=== PATIENT | female | born 1955 | race Caucasian/White ===

== ENCOUNTER → 2016-12-14 | Outpatient (CLI) | payer MEDICARE, BC ==
[~2016-12-14] MED LIST: /ACETCOD3T PO; /PREG100CA PO; ALDA50TA2; ALPR2TAB3 PO; AMITIZA; ASPI325T OR; CILOSTAZOL; COLA50CA3 PO; ECOT325T5; FLEXERIL; FLUR30CA OR; FOLI1TAB OR; GLUC500T; GLUC850T OR; HYDR25TA8; HYDR25TA8 OR; MAGN400C2 PO; MELOPOW; METF1000 PO; METF500T4; OMEP20TA7 OR; OXYB5TAB5 OR; PRIL20CA; PROP20TA2; PROP20TA2 OR; PROV90AE; SENO8.6T5; SIMV40TA2; SIMV40TA2 OR; SLEEP AID OTC; SPIR50TA2 OR; STOOL SOFTNER; TESS100C OR; TOPI25TA2; TRAM50TA2; TRAM50TA2 OR; TRAZ50TA; TRAZ50TA OR; TRAZ50TA2 PO; XANA0.25 OR; cilostazol PO; dexilant OR
--- NOTE | 2016-12-14 23:35 | ECWPNPC ---
PATIENT NAME: AMI FERNANDEZ : 1955 GENDER: FEMALE VISIT DATE: 12/14/2016 DISCHARGE DATE: 12/14/16 1450 VISIT LOCKED DATE TIME: PHYSICIAN: ROXANNE TREADWELL RESOURCE: ROXANNE TREADWELL REASON FOR APPOINTMENT 1. LEFT ARM/NECK HISTORY OF PRESENT ILLNESS HISTORY OF PRESENT ILLNESS: HERE FOR F/U OF PERSISTENT LEFT ARM PAIN.HAS DCS IN PLACE WHICH PATIENT STATES IS NOT WORKING.STOPPED WORKING TWO WEEKS AGO .DENIES ANY INJURY.THIS WAS PLACED IN 2006.RATINR PAIN VAS 9/10.CURRENTLY USING TRAMADOL 50MG 2TAB 3X DAY AND GABAPENTIN 300MG BID.FINDS MEDICINE SOMEWHAT EFFECTIVE AT REDUCING PAIN AND KEEPING HER COMFORTABLE.STATES SHE HAS SEEN ISAAK FROM [employer] AND NEEDS TO HAVE XRAYS TO CHECK LEADS.HAS HAD A SIGNIFICANT INCREASE IN PAIN SINCE SHE IS UNABLE TO USE DCS. PAIN THE PATIENT DESCRIBES THE PAIN... THE PATIENT DESCRIBES THE PAIN... FALL RISK SCREENING: SCREENING :NO FALLS IN THE PAST YEAR CURRENT MEDICATIONS TAKING FLURAZEPAM HCL 30 MG CAPSULE 1 CAPSULE AT BEDTIME ORALLY ONCE A DAY TAKING HYDROXYZINE HCL 25 MG TABLET 2 TABS ORALLY AT BEDTIME TAKING OMEPRAZOLE 20MG 40 MG TABLET 1 TAB(S) ORAL DAILY TAKING METFORMIN HCL 1000 MG TABLET 2 TAB(S) ORALLY TWICE A DAY TAKING OXYBUTYNIN CHLORIDE 5 MG TABLET 1 TAB(S) ORALLY DAILY TAKING PROPRANOLOL HCL 10 MG TABLET 2 ORALLY TWICE A DAY TAKING SIMVASTATIN 40 40MG TABLET 1 TAB(S) ORAL DAILY TAKING SPIRONOLACTONE 25 MG TABLET 1 TABLET ORALLY ONCE A DAY TAKING TRAZODONE 50 50MG TABLET 1 TAB(S) ORAL DAILY TAKING DOC-Q-LACE 100 MG CAPSULE 6 CAPSULE NEEDED ORALLY ONCE A DAY TAKING MAGNESIUM 400 CAPSULE 1 ORALLY ONCE A DAY TAKING TRADJENTA 5 MG TABLET 1 TABLET ORALLY ONCE A DAY TAKING ASPIRIN ADULT LOW DOSE 81 MG TABLET DELAYED RELEASE 1 TABLET ORALLY ONCE A DAY TAKING GABAPENTIN 300 MG CAPSULE 1 CAPSULE ORALLY BID TAKING TRAMADOL HCL 50 MG TABLET 2 ORALLY Q8H PRN MDD6 3MOS SUPPLY CAT D CHRONIC PAIN TAKING MULTIVITAMIN ADULT - TABLET 1 TAB ORALLY DAILY TAKING IRON 1 TAB ORAL DAILY NOT-TAKING TESSALON PERLES 300 MG CAPSULE 1 CAPSULE ORALLY NEEDED NOT-TAKING FOLIC ACID XTRA 1 TABLET 1 TAB(S) ORALLY DAILY NOT-TAKING FOLIC ACID 1 MG TABLET 1 TABLET ORALLY ONCE A DAY NOT-TAKING TRAMADOL HCL 50 MG TABLET 2 ORALLY EVERY 68HRS PRN MDD6 NOT-TAKING TRAMADOL HCL 50 MG TABLETS 2 TABLET ORALLY 2TAB Q8H PRN MDD 6 NOT-TAKING DEXILANT 60 MG CAPSULE DELAYED RELEASE 1 CAPSULE ORALLY ONCE A DAY NOT-TAKING AMITIZA 24 MCG CAPSULE 1 CAPSULE WITH FOOD ORALLY THREE TIMES A DAY NOT-TAKING ALPRAZOLAM 0.25 MG TABLET 1 TABLET ORALLY BID PRN NOT-TAKING CILOSTAZOL 60 TABLET 1 TAB(S) ORALLY DAILY MEDICATION LIST REVIEWED AND RECONCILED WITH THE PATIENT PAST MEDICAL HISTORY CUTANEOUS MYCOSIS FUNGOIDES HISTORY OF H PYROI FOLLOWING IN [place] 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 NEW PATIENT PAIN DIARY TODAY'S VISITNOTES FROM 0-10, WHAT LEVEL IS YOUR PAIN TODAY?0 PAIN CLINIC PFS, CLERGY, PUBLIC HEALTH REFERRALS PFS REFERRAL NEEDED?NO CLERGY REFERRAL NEEDED?NO PUBLIC HEALTH REFERRAL NEEDED?NO WAS THE PROVIDER NOTIFIED OF ANY PERTINENT INFO?NO PFS REFERRAL NEEDED?NO CLERGY REFERRAL NEEDED?NO PUBLIC HEALTH REFERRAL NEEDED?NO WAS THE PROVIDER NOTIFIED OF ANY PERTINENT INFO?NO REVIEW OF SYSTEMS CONSTITUTIONAL: ANY CHANGE IN YOUR MEDICAL CONDITION? NO . CHILLS NO . FEVER NO . INFECTION: DO YOU HAVE NEW INFECTIONS? NO . DO YOU HAVE HISTORY OF MRSA? NO . MUSCULOSKELETAL: ANY NEW PATTERNS OF PAIN OR NUMBNESS? NO . GASTROENTEROLOGY: ANY NEW CHANGE IN BOWEL CONTROL? NO . GENITOURINARY: ANY NEW CHANGE IN BLADDER CONTROL? NO . IS THERE A CHANCE YOU COULD BE ? NO . HEMATOLOGY/LYMPH: DO YOU TAKE ANY BLOOD THINNERS? (FOR EXAMPLE- COUMADIN, PLAVIX, AGGRENOX, PLATEL, PRADAXA, OR XARELTO) NO . WHEN WAS YOUR LAST DOSE? DATE: TIME: . NEUROLOGY: HAVE YOU FALLEN IN THE PAST 6 MONTHS? YES . ANY NEW EXTREMITY NUMBNESS OR WEAKNESS? NO . CARDIOLOGY: DO YOU HAVE A PACEMAKER OR DEFIBRILLATOR? NO . RESPIRATORY: HAVE YOU BEEN SICK IN THE PAST WEEK? NO . FEVER NO . FLU LIKE SYMPTOMS? NO . COUGH NO . INTEGUMENTARY: DO YOU HAVE ANY RASHES OR OPEN SORES? NO . ALLERGIC/IMMUNO: ARE YOU ALLERGIC TO SHELLFISH OR IV DYE? NO . ANY NEW ALLERGIES? NO . PSYCHIATRIC: DO YOU HAVE THOUGHTS OF HURTING YOURSELF OR SOMEONE ELSE? NO . ARE YOU ABUSED, NEGLECTED, OR IN AN UNSAFE ENVIRONMENT? NO . ENDOCRINOLOGY: ARE YOU DIABETIC? YES . OTHER: DO YOU NEED ANY PRESCRIPTIONS? NO . IF YES, PLEASE LIST: ____ . ANY NEW PROBLEMS WITH YOUR MEDICATIONS? NO . WHEN DID YOU LAST EAT? ____ . WHEN DID YOU LAST DRINK? ____ . WHAT DID YOU LAST DRINK? ____ . NAME OF PERSON DRIVING YOU HOME? ____ . DO YOU HAVE ANY OTHER QUESTIONS OR CONCERNS NO . REVIEWED BY: PROVIDER: ROXANNE QUINTERO . VITAL SIGNS WT 109.4 LBS, HT 63 IN, BMI 19.38 INDEX, BP 115/67 MM HG, HR 91 /MIN, RR 16 /MIN, TEMP 97.1 F, OXYGEN SAT % 95, NA INITIALS TL 1358, REVIEWED BY: CS. EXAMINATION GENERAL EXAMINATION: LUNGS:LUNG SOUNDS ARE CLEAR. HEART:HEART RATE REGULAR. MUSCULOSKELETAL:*. DIAGNOSTIC: . : LOCATION OF PAINTENDER W LIGHT PALPATION LEFT HAND. 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 - G90.512 (PRIMARY) TREATMENT COMPLEX REGIONAL PAIN SYNDROME TYPE 1 OF LEFT UPPER EXTREMITY CONTINUE TRAMADOL HCL TABLET, 50 MG, 2, ORALLY, EVERY 68HRS PRN MDD6, 30 DAY(S), 180, REFILLS 2 CONTINUE GABAPENTIN CAPSULE, 300 MG, 1 CAPSULE, ORALLY, BID, 30 DAY(S), 60 CAPSULE, REFILLS 2 PROCEDURE CODES FA211 ESTABILISHED PATIENT [facility] FACILITY CHARGE G9630 PAIN ASSESS POS TOOL F/U PLAN DOC G8427 DOC MEDS VERIFIED W/PT OR RE DISPOSITION & COMMUNICATION FOLLOW UP 2 MONTHS (REASON: HAVE [facility] CALL PATIENT PLEASE) ELECTRONICALLY SIGNED BY LEON BERNARDO ON 12/14/2016 AT 02:51 PM EST DISCLAIMER : THIS IS A VISIT SUMMARY EXTRACTED FROM THE [employer] CHART. IT IS NOT A COPY OF THE [employer] PROGRESS NOTE. MTDD
== END ==
LOC: M PAIN 14:00
PROVIDERS: ATTEND Nurse Practitioner Family
DX: Z09 Encounter for follow-up examination after completed treatment for conditions other than malignant neoplasm (principal); G89.29 Other chronic pain; G90.512 Complex regional pain syndrome I of left upper limb; C84.00 Mycosis fungoides, unspecified site; E11.9 Type 2 diabetes mellitus without complications; K86.89 Other specified diseases of pancreas; E78.5 Hyperlipidemia, unspecified; I10 Essential (primary) hypertension; F17.200 Nicotine dependence, unspecified, uncomplicated; Z88.5 Allergy status to narcotic agent; Z88.8 Allergy status to other drugs, medicaments and biological substances; Z79.84 Long term (current) use of oral hypoglycemic drugs; Z79.82 Long term (current) use of aspirin; Z79.891 Long term (current) use of opiate analgesic; Z79.899 Other long term (current) drug therapy; Z96.9 Presence of functional implant, unspecified

== ENCOUNTER → 2017-02-13 | Outpatient (CLI) | payer MEDICARE, BC ==
--- NOTE | 2017-02-25 00:58 | ECWPNPC ---
PATIENT NAME: AMI FERNANDEZ : 1955 GENDER: FEMALE VISIT DATE: 02/13/2017 DISCHARGE DATE: 02/13/17 1200 VISIT LOCKED DATE TIME: PHYSICIAN: ROXANNE TREADWELL RESOURCE: ROXANNE TREADWELL REASON FOR APPOINTMENT 1. FOLLOWUP HISTORY OF PRESENT ILLNESS HISTORY OF PRESENT ILLNESS: HERE FOR F/U OF PERSISTENT LEFT ARM PAIN.HAS DCS IN PLACE WHICH PATIENT STATES IS NOT WORKING.STOPPED A FEW MONTHS AGO .DENIES ANY INJURY.THIS WAS PLACED IN 2006.RATING PAIN VAS 5/10.CURRENTLY USING TRAMADOL 50MG 2TAB 3X DAY AND GABAPENTIN 300MG BID.FINDS MEDICINE SOMEWHAT EFFECTIVE AT REDUCING PAIN AND KEEPING HER COMFORTABLE.STATES SHE HAS SEEN [facility] FROM [employer] AND NEEDS TO HAVE XRAYS TO CHECK LEADS.HAS HAD A SIGNIFICANT INCREASE IN PAIN SINCE SHE IS UNABLE TO USE DCS.SHE HAD TO MISS APPOINTMENT WITH Ly MCFARLAND AND [facility] DUE TO HUSBANDS HEALTH ISSUES. PAIN THE PATIENT DESCRIBES THE PAIN... THE PATIENT DESCRIBES THE PAIN... CURRENT MEDICATIONS TAKING FLURAZEPAM HCL 30 MG CAPSULE 1 CAPSULE AT BEDTIME ORALLY ONCE A DAY TAKING OMEPRAZOLE 20MG 40 MG TABLET 1 TAB(S) ORAL DAILY TAKING METFORMIN HCL 1000 MG TABLET 2 TAB(S) ORALLY TWICE A DAY TAKING OXYBUTYNIN CHLORIDE 5 MG TABLET 1 TAB(S) ORALLY DAILY TAKING PROPRANOLOL HCL 10 MG TABLET 2 ORALLY TWICE A DAY TAKING SIMVASTATIN 40 40MG TABLET 1 TAB(S) ORAL DAILY TAKING SPIRONOLACTONE 25 MG TABLET 1 TABLET ORALLY ONCE A DAY TAKING TRAZODONE 50 50MG TABLET 1 TAB(S) ORAL DAILY TAKING DOC-Q-LACE 100 MG CAPSULE 6 CAPSULE NEEDED ORALLY ONCE A DAY TAKING MAGNESIUM 400 CAPSULE 1 ORALLY ONCE A DAY TAKING TRADJENTA 5 MG TABLET 1 TABLET ORALLY ONCE A DAY TAKING ASPIRIN ADULT LOW DOSE 81 MG TABLET DELAYED RELEASE 1 TABLET ORALLY ONCE A DAY TAKING TRAMADOL HCL 50 MG TABLET 2 ORALLY Q8H PRN MDD6 3MOS SUPPLY CAT D CHRONIC PAIN TAKING MULTIVITAMIN ADULT - TABLET 1 TAB ORALLY DAILY TAKING IRON 1 TAB ORAL DAILY TAKING GABAPENTIN 300 MG CAPSULE 1 CAPSULE ORALLY BID NOT-TAKING HYDROXYZINE HCL 25 MG TABLET 2 TABS ORALLY AT BEDTIME NOT-TAKING TRAMADOL HCL 50 MG TABLET 2 ORALLY EVERY 68HRS PRN MDD6 NOT-TAKING TESSALON PERLES 300 MG CAPSULE 1 CAPSULE ORALLY NEEDED NOT-TAKING FOLIC ACID XTRA 1 TABLET 1 TAB(S) ORALLY DAILY NOT-TAKING FOLIC ACID 1 MG TABLET 1 TABLET ORALLY ONCE A DAY NOT-TAKING TRAMADOL HCL 50 MG TABLETS 2 TABLET ORALLY 2TAB Q8H PRN MDD 6 NOT-TAKING DEXILANT 60 MG CAPSULE DELAYED RELEASE 1 CAPSULE ORALLY ONCE A DAY NOT-TAKING AMITIZA 24 MCG CAPSULE 1 CAPSULE WITH FOOD ORALLY THREE TIMES A DAY NOT-TAKING ALPRAZOLAM 0.25 MG TABLET 1 TABLET ORALLY BID PRN NOT-TAKING CILOSTAZOL 60 TABLET 1 TAB(S) ORALLY DAILY MEDICATION LIST REVIEWED AND RECONCILED WITH THE PATIENT PAST MEDICAL HISTORY CUTANEOUS MYCOSIS FUNGOIDES HISTORY OF H PYROI FOLLOWING IN [place] 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 EXAMINATION GENERAL EXAMINATION: LUNGS:LUNG SOUNDS ARE CLEAR. HEART:HEART RATE REGULAR. MUSCULOSKELETAL:*. DIAGNOSTIC: . : LOCATION OF PAINTENDER W LIGHT PALPATION LEFT HAND. 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 FDA CONCERNS AND WARNING WERE REVIEWED INCLUDING THE RISK OF BLEEDING, RISK OF INFECTION, RISK OF INCREASED PAIN OR NEURALGIA, AND RISK OF PARALYSIS. PATIENT'S QUESTIONS WERE ANSWERED AND HE/SHE WISHES TO MOVE FORWARD WITH EPIDURAL INJECTION., # 226 TOBACCO USE SCREENING/INTERVENTION: PATIENT CURRENTLY USED TOBACCO. WAS OFFERED SMOKING CESSATION FOR GUIDANCE IN QUITTING THROUGH THE [facility] QUITS PROGRAM AND THE [facility] CESSATION PROGRAM. PROCEDURE CODES FA211 ESTABILISHED PATIENT [facility] FACILITY CHARGE G8783 BP SCR PRFRM RCMDD DEFIND SCR INTVL G8418 BMI < 22 CALCUATE W/FOLLOWUP G8730 PAIN ASSESS POS TOOL F/U PLAN DOC 3016F PT SCRND UNHLTHY [place] USE 1124F ACP DISCUSS-NO DSCNMKR DOCD 0518F FALL PLAN OF CARE DOCD G8427 DOC MEDS VERIFIED W/[place] RE 3288F FALL RISK ASSESSMENT DOCD 4004F PT TOBACCO SCREEN RCVD TLK DISPOSITION & COMMUNICATION FOLLOW UP 2 MONTHS ELECTRONICALLY SIGNED BY LEON BERNARDO ON 02/24/2017 AT 01:20 PM EDT DISCLAIMER : THIS IS A VISIT SUMMARY EXTRACTED FROM THE [facility] CHART. IT IS NOT A COPY OF THE [facility] PROGRESS NOTE. RO
== END ==
LOC: M PAIN 11:00
PROVIDERS: ATTEND Nurse Practitioner Family
DX: G90.512 Complex regional pain syndrome I of left upper limb (principal); M79.602 Pain in left arm; E11.9 Type 2 diabetes mellitus without complications; E78.00 Pure hypercholesterolemia, unspecified; I10 Essential (primary) hypertension; Z88.5 Allergy status to narcotic agent; Z88.8 Allergy status to other drugs, medicaments and biological substances; Z79.84 Long term (current) use of oral hypoglycemic drugs; Z79.82 Long term (current) use of aspirin; Z79.891 Long term (current) use of opiate analgesic; Z79.899 Other long term (current) drug therapy

== ENCOUNTER → 2017-03-01 | Outpatient (CLI) | payer MEDICARE, BC ==
--- NOTE | 2017-03-01 15:50 | REP ---
FLUOROSCOPIC GUIDANCE: The images were reviewed with Dr. Ingram. The patient has a history of neck pain and left arm pain. The portable C-arm was provided in the OR for Dr. Sanches for fluoroscopic guidance. Five intraoperative fluoroscopic spot films were obtained for lead placement verification for dorsal column stimulator. The films are on the PACs system and are available for review. 15 seconds of fluoroscopic time was utilized for this procedure. Reviewed by KD Mars 03/01/2017 04:17 PEdited and Signed by Teddy Ingram MD 03/01/2017 04:42 P
--- NOTE | 2017-03-12 23:38 | ECWPNPC ---
PATIENT NAME: AMI FERNANDEZ : 1955 GENDER: FEMALE VISIT DATE: 03/01/2017 DISCHARGE DATE: 03/01/17 1340 VISIT LOCKED DATE TIME: PHYSICIAN: JUAN ALBERTO MCFARLAND RESOURCE: JUAN ALBERTO MCFARLAND REASON FOR APPOINTMENT 1. LEFT ARM PAIN HISTORY OF PRESENT ILLNESS HISTORY OF PRESENT ILLNESS: PAIN THE PATIENT DESCRIBES THE PAIN... 61 YEAR OLD FEMALE PATIENT WITH HISTORY OF CHRONIC LEFT ARM PAIN. PATIENT DESCRIBES THE PAIN ACHING, STABBING, THROBBING, SHOOTING WITH THE PAIN COMING AND GOING WITH A PAIN SCORE OF 6/10. PATIENT HAS A DCS IMPLANTED IN 2006 AND STATES THAT THE DEVICE STOPPED WORKING IN 09/2016 AND SINCE THEN THE PAIN HAS BECOME MUCH MORE SEVERE. MRS. FERNANDEZ IS CURRENTLY USING TRAMADOL AND GABAPENTIN TO AID IN PAIN RELIEF. PATIENT REPORTS IT IS DIFFICULT TO DO EVERYDAY ACTIVITIES DUE TO THE PAIN IN THE LEFT ARM. PATIENT DENIES UNEXPLAINABLE WEIGHT LOSS, FEVER, CHILLS, NEW CHANGES ON HER URINARY OR BOWEL CONTROL. FALL RISK SCREENING: SCREENING :NO FALLS IN THE PAST YEAR CURRENT MEDICATIONS TAKING FLURAZEPAM HCL 30 MG CAPSULE 1 CAPSULE AT BEDTIME ORALLY ONCE A DAY TAKING OMEPRAZOLE 20MG 40 MG TABLET 1 TAB(S) ORAL DAILY TAKING METFORMIN HCL 1000 MG TABLET 2 TAB(S) ORALLY TWICE A DAY TAKING OXYBUTYNIN CHLORIDE 5 MG TABLET 1 TAB(S) ORALLY DAILY TAKING PROPRANOLOL HCL 10 MG TABLET 2 ORALLY TWICE A DAY TAKING SIMVASTATIN 40 40MG TABLET 1 TAB(S) ORAL DAILY TAKING SPIRONOLACTONE 25 MG TABLET 1 TABLET ORALLY ONCE A DAY TAKING TRAZODONE 50 50MG TABLET 1 TAB(S) ORAL DAILY TAKING DOC-Q-LACE 100 MG CAPSULE 6 CAPSULE NEEDED ORALLY ONCE A DAY TAKING MAGNESIUM 400 CAPSULE 1 ORALLY ONCE A DAY TAKING TRADJENTA 5 MG TABLET 1 TABLET ORALLY ONCE A DAY TAKING ASPIRIN ADULT LOW DOSE 81 MG TABLET DELAYED RELEASE 1 TABLET ORALLY ONCE A DAY TAKING MULTIVITAMIN ADULT - TABLET 1 TAB ORALLY DAILY TAKING GABAPENTIN 300 MG CAPSULE 1 CAPSULE ORALLY BID TAKING TRAMADOL HCL 50 MG TABLET 2 ORALLY Q8H PRN MDD6 3MOS SUPPLY CAT D CHRONIC PAIN NOT-TAKING IRON 1 TAB ORAL DAILY NOT-TAKING HYDROXYZINE HCL 25 MG TABLET 2 TABS ORALLY AT BEDTIME NOT-TAKING TRAMADOL HCL 50 MG TABLET 2 ORALLY EVERY 68HRS PRN MDD6 NOT-TAKING TESSALON PERLES 300 MG CAPSULE 1 CAPSULE ORALLY NEEDED NOT-TAKING FOLIC ACID XTRA 1 TABLET 1 TAB(S) ORALLY DAILY NOT-TAKING FOLIC ACID 1 MG TABLET 1 TABLET ORALLY ONCE A DAY NOT-TAKING TRAMADOL HCL 50 MG TABLETS 2 TABLET ORALLY 2TAB Q8H PRN MDD 6 NOT-TAKING DEXILANT 60 MG CAPSULE DELAYED RELEASE 1 CAPSULE ORALLY ONCE A DAY NOT-TAKING AMITIZA 24 MCG CAPSULE 1 CAPSULE WITH FOOD ORALLY THREE TIMES A DAY NOT-TAKING ALPRAZOLAM 0.25 MG TABLET 1 TABLET ORALLY BID PRN NOT-TAKING CILOSTAZOL 60 TABLET 1 TAB(S) ORALLY DAILY MEDICATION LIST REVIEWED AND RECONCILED WITH THE PATIENT PAST MEDICAL HISTORY CUTANEOUS MYCOSIS FUNGOIDES HISTORY OF H PYROI FOLLOWING IN [place] 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 THINKING ABOUT QUITTING , COUNSELED THE PATIENT ON SMOKING CESSATION, EDUCATION PROVIDED INFO TO PT. LEARNING BARRIERS / SPECIAL NEEDS ABILITY TO UNDERSTAND VERBAL INSTRUCTIONS AVERAGE , ABILITY TO UNDERSTAND WRITTEN INSTRUCTIONS AVERAGE , KNOWLEDGE OF EDUCATIONAL NEEDS/TREATMENT PLAN AVERAGE , LEARNING PREFERENCE NO PREFERENCE , ORIENTED TO PLAN OF CARE: PATIENT , PAIN MANAGEMENT PATIENT , TEACHING MATERIALS DEMONSTRATION/VERBAL INSTRUCTION , RESPONSE TO EDUCATION EXPLAINES ACCURATELY/VERBALIZES UNDERSTANDING , TEACHING MATERIALS DEMONSTRATION/VERBAL INSTRUCTION , RESPONSE TO EDUCATION EXPLAINS ACCURATELY/VERBALIZES UNDERSTANDING . PAIN CLINIC PFS, CLERGY, PUBLIC HEALTH REFERRALS PFS REFERRAL NEEDED? NO , CLERGY REFERRAL NEEDED? NO , PUBLIC HEALTH REFERRAL NEEDED? NO , WAS THE PROVIDER NOTIFIED OF ANY PERTINENT INFO? NO . ADVANCED DIRECTIVES HEALTH CARE PROXY?NO POWER OF MANAGER FINANCIAL SYSTEMS?NO HOSPITALIZATION/MAJOR DIAGNOSTIC PROCEDURE NO HOSPITALIZATION HISTORY. REVIEW OF SYSTEMS CONSTITUTIONAL: ANY CHANGE IN YOUR MEDICAL CONDITION? YES PT REPORTS SHE WAS FOUND TO HAVE KIDNEY STONES BILATERALLY, TOO SMALL FOR TREATMENT AT THIS TIME . CHILLS NO . FEVER NO . INFECTION: DO YOU HAVE NEW INFECTIONS? NO . DO YOU HAVE HISTORY OF MRSA? NO . MUSCULOSKELETAL: ANY NEW PATTERNS OF PAIN OR NUMBNESS? YES PT REPORTS THAT HER DCS IS NO LONGER FUNCTIONING PROPERLY, AND NOW HAS INCREASED PAIN/NUMBNESS IN LEFT ARM/HAND . GASTROENTEROLOGY: ANY NEW CHANGE IN BOWEL CONTROL? YES PT REPORTS SEVERE CONSTIPATION, TOOK HERSELF OFF THE IRON . GENITOURINARY: ANY NEW CHANGE IN BLADDER CONTROL? NO . IS THERE A CHANCE YOU COULD BE ? NO . HEMATOLOGY/LYMPH: DO YOU TAKE ANY BLOOD THINNERS? (FOR EXAMPLE- COUMADIN, PLAVIX, AGGRENOX, PLATEL, PRADAXA, OR XARELTO) NO . WHEN WAS YOUR LAST DOSE? DATE: TIME: . NEUROLOGY: HAVE YOU FALLEN IN THE PAST 6 MONTHS? YES PT SLIPPED IN THE BATHROOM, HITTING HER NECK ON THE TUB 09/14. SHE THINKS THAT WAS WHAT CAUSED HER DCS TO STOP FUNCTIONING. . ANY NEW EXTREMITY NUMBNESS OR WEAKNESS? NO . CARDIOLOGY: DO YOU HAVE A PACEMAKER OR DEFIBRILLATOR? NO . RESPIRATORY: HAVE YOU BEEN SICK IN THE PAST WEEK? NO . FEVER NO . FLU LIKE SYMPTOMS? NO . COUGH NO . INTEGUMENTARY: DO YOU HAVE ANY RASHES OR OPEN SORES? NO . ALLERGIC/IMMUNO: ARE YOU ALLERGIC TO SHELLFISH OR IV DYE? NO . ANY NEW ALLERGIES? NO . PSYCHIATRIC: DO YOU HAVE THOUGHTS OF HURTING YOURSELF OR SOMEONE ELSE? NO . ARE YOU ABUSED, NEGLECTED, OR IN AN UNSAFE ENVIRONMENT? NO . ENDOCRINOLOGY: ARE YOU DIABETIC? YES . OTHER: DO YOU NEED ANY PRESCRIPTIONS? NO . IF YES, PLEASE LIST: ____ . ANY NEW PROBLEMS WITH YOUR MEDICATIONS? NO . WHEN DID YOU LAST EAT? ____ . WHEN DID YOU LAST DRINK? ____ . WHAT DID YOU LAST DRINK? ____ . NAME OF PERSON DRIVING YOU HOME? ____ . DO YOU HAVE ANY OTHER QUESTIONS OR CONCERNS NO . REVIEWED BY: PROVIDER: JUAN ALBERTO MCFARLAND MD . VITAL SIGNS WT 109.8 LBS, HT 63 IN, BMI 19.45 INDEX, BP 186/83 MM HG, HR 80 /MIN, RR 16 /MIN, TEMP 98.6 F, OXYGEN SAT % 94%, SAFE IN ENV? (Y/N) YES, NA INITIALS AW 1509, REVIEWED BY: PAUL HAS AN APPOINTMENT WITH HER PRIMARY TOMORROW AND WILL DISCUSS BLOOD PRESSURE. EXAMINATION : PATIENT IS ALERT O X 3 AND COOPERATIVE. TENNESS IN THE LEFT ARM AREA STARTING AT THE SHOULDER GOING TO THE LEFT HAND. ASSESSMENTS POLYNEUROPATHY, UNSPECIFIED - G62.9 (PRIMARY) LEFT UPPER EXTREMITY NEUROPATHY. TREATMENT POLYNEUROPATHY, UNSPECIFIED NOTES: WE DISCUSSED SEVERAL ISSUES WITH MRS. FERNANDEZ' PAIN MANAGEMENT CASE. AT THIS TIME THE PATIENT WILL CONTINUE WITH THE SAME MEDICATION REGIME BEFORE. I WOULD LIKE TO VIEW THE PATIENT UNDER X-RAY TO SEE WHERE THE LEADS ARE TO MAKE SURE THAT THE LEADS HAVE NOT MOVED. IF THE LEADS HAVE NO MOVED I WOULD LIKE TO DO A REVISION ON THE BATTERY. PATIENT HAS SPOKEN WITH [facility]K JOSEPH AND REPORTS SHE WOULD LIKE TO MOVE FORWARD WITH THE REVISION. PATIENT WILL COMPLETE OR PAPERWORK TODAY. I WOULD LIKE A CLEARANCE FROM THE PRIMARY DOCTOR BEFORE MOVING FORWARD WITH THE DCS REVISION. INSTRUCTIONS WERE GIVEN, QUESTIONS WERE ANSWERED, PATIENT REPORTS UNDERSTANDING AND AGREES WITH THE PLAN. I, DORA PARRA, DOCUMENTED THE ABOVE INFORMATION ACTING A SCRIBE FOR DR. MCFARLAND. I HAVE REVIEWED THE ABOVE DOCUMENT, WRITTEN BY DORA CORNEJO AND I VERIFY THAT IT IS ACCURATE. [facility]O GUIDANCE (PAIN)[id number] PROCEDURE CODES FA211 ESTABILISHED PATIENT [facility] CHARGE G8427 DOC MEDS VERIFIED W/PT OR RE G8730 PAIN ASSESS POS TOOL F/U PLAN DOC DISPOSITION & COMMUNICATION FOLLOW UP DCS 03/20/17 ELECTRONICALLY SIGNED BY JUAN ALBERTO MCFARLAND MD ON 03/12/2017 AT 12:32 PM EDT DISCLAIMER : THIS IS A VISIT SUMMARY EXTRACTED FROM THE [employer] CHART. IT IS NOT A COPY OF THE [employer] PROGRESS NOTE. MTDD
== END ==
LOC: M PAIN 13:40
PROVIDERS: ATTEND Anesthesiology
DX: G89.29 Other chronic pain (principal); G62.9 Polyneuropathy, unspecified; M79.602 Pain in left arm; K86.89 Other specified diseases of pancreas; E11.9 Type 2 diabetes mellitus without complications; E78.00 Pure hypercholesterolemia, unspecified; I10 Essential (primary) hypertension; Z88.5 Allergy status to narcotic agent; Z88.8 Allergy status to other drugs, medicaments and biological substances; Z79.84 Long term (current) use of oral hypoglycemic drugs; Z79.82 Long term (current) use of aspirin; Z79.891 Long term (current) use of opiate analgesic; Z79.899 Other long term (current) drug therapy
CPT/HCPCS: 76000; G0463

== ENCOUNTER 2017-03-20 05:51 | Day surgery (SDC) | payer MEDICARE, BC ==
[~2017-03-20] VITALS: Ht 160 cm; Wt 49.4 kg
[2017-03-20] VITALS (9 sets, daily range): BP systolic 91–120; BP diastolic 50–86
[~2017-03-20 05:51] MED LIST changes: +COLA100C3 PO
[2017-03-20] MEDS ORDERED: LR 1,000 ML IV ONE (06:00)
[2017-03-20] MEDS ORDERED: ceFAZolin SOD 1 GM in D5W MINI-BAG PLUS 50 ML IV ONE (06:00)
[2017-03-20] MEDS ORDERED: fentaNYL 100 MCG/2 ML INJECTION (J3010) As Ordered ONE ×2 (07:03→08:26)
[2017-03-20] MEDS ORDERED: MIDAZOLAM INJ 2 MG/2 ML VIAL (J2250) As Ordered ONE (07:03)
[2017-03-20] MEDS ORDERED: LIDOCAINE 1% MDV 20ML VIAL As Ordered ONE (07:13)
[2017-03-20] MEDS ORDERED: BACITRACIN PWD 50,000 UNITS VIAL As Ordered ONE (07:14)
[2017-03-20] MEDS ORDERED: ONDANSETRON 4MG/2ML VIAL (J2405) As Ordered ONE (07:19)
[2017-03-20] MEDS ORDERED: LIDOCAINE 2% INJ 100 MG/5 ML SDV (FOR ANES.) As Ordered ONE (07:19)
[2017-03-20] MEDS ORDERED: dexameTHASONE 4 MG/ML 1ML VIAL (J1100) As Ordered ONE (07:19)
[2017-03-20] MEDS ORDERED: PROPOFOL 200 MG/20 ML VIAL As Ordered ONE (07:19)
[2017-03-20] MEDS ORDERED: ePHEDrine SULFATE 25 MG/5 ML(5MG/ML) SYRINGE As Ordered ONE (08:08)
[2017-03-20] MEDS ORDERED: PHENYLephrine HCL 500 MCG/5 ML (100MCG/ML) SYRINGE (J2370) As Ordered ONE (08:09)
[2017-03-20] MEDS: SPIRONOLACTONE 25 MG TAB PO SCH (09:00)
[2017-03-20] MEDS ORDERED: ALBUTEROL 6.7GM INHALER **FOR ANES. CART/OMNICELL ONLY As Ordered ONE (09:13)
--- NOTE | 2017-03-20 09:35 | REP ---
Partial cervical spine series: Three views. History: Left upper extremity neuropathy. Comparison cervical spine views are from March 01, 2017. The comparison views show dorsal column stimulator leads in the cervical epidural space. 8 seconds of fluoroscopy time is reported. Findings: A sequence of three fluoroscopically obtained intraprocedural spot radiographs of the cervical spine and the cervicothoracic junction document orotracheal and oroesophageal tubes. No dorsal column stimulator leads are seen. There are clips in the supraclavicular soft tissues bilaterally. Unreviewed
[2017-03-20] MEDS ORDERED: fentaNYL 100 MCG/2 ML INJECTION (J3010) IV PRN (10:15)
[2017-03-20] MEDS ORDERED: METOCLOPRAMIDE INJ 10MG/2ML VIAL (J2765) IV PRN (10:15)
[2017-03-20] MEDS ORDERED: LR 1,000 ML IV SCH (10:15)
[2017-03-20] MEDS ORDERED: ONDANSETRON 4MG/2ML VIAL (J2405) IV PRN (10:15)
[2017-03-20] MEDS ORDERED: PERCOCET 5MG/325MG TAB PO PRN (10:15)
[2017-03-20] MEDS ORDERED: traMADol 50 MG TAB PO PRN ×2 (10:30)
[2017-03-20] MEDS: ceFAZolin SOD 1 GM in D5W MINI-BAG PLUS 50 ML IV SCH (16:09)
[2017-03-20] MEDS: HumaLOG INSULIN (NovoLOG) PER UNIT SC SCH (17:30)
[2017-03-20] MEDS ORDERED: IPRATROPIUM 0.5MG/ALBUTEROL 2.5MG INH SOL UD 3ML (DUONEB)(J7620) NEB PRN (18:30)
--- NOTE | 2017-03-20 18:42 | CR.PDOC ---
[facility] Consultation Consultation DATE OF CONSULTATION: March 20, 2017 at 05:51 PRIMARY CARE PHYSICIAN: Dr. Stanley REFERRING PROVIDER: Mayo Katz M.D. ATTENDING PHYSICIAN: Dr. Light REASON FOR CONSULTATION/CHIEF COMPLAINT: . Management of medical comorbidities HISTORY OF PRESENT ILLNESS: . 61-year-old female with past medical history of cutaneous mycosis fungoides, GERD, diabetes mellitus, hypertension, COPD, dyslipidemia, and chronic left upper extremity pain was admitted to the hospital for revision of spinal cord stimulator. At this time, the patient states that she's feeling relatively well , and denies any acute complaints of fevers, chills, chest become shortness of breath, abdominal pain, or any nausea/vomiting/diarrhea. At this time, the hospitalist service has been consulted for medical management of the patient's comorbidities. ALLERGIES: Please see below. HOME MEDICATIONS: Please see below. PAST MEDICAL HISTORY: As noted in HPI. PAST SURGICAL HISTORY: Cholecystectomy FAMILY HISTORY: Nonpertinent SOCIAL HISTORY: Smoked an average of 2 packs per day for last 50+ years, denies any alcohol abuse. Currently on disability REVIEW OF SYSTEMS: 10 point review of systems negative unless otherwise specified in HPI. PHYSICAL EXAMINATION: VITAL SIGNS: Please see below. GENERAL APPEARANCE: . Awake, alert, oriented, in no acute distress HEENT: . No JVD RESPIRATORY: . Clear to auscultation bilaterally CARDIOVASCULAR: . Normal rate, normal rhythm ABDOMEN: . Soft, nontender, nondistended EXTREMITIES: . No erythema, or tenderness noted LABORATORY DATA: Please see below. ASSESSMENT/PLAN: Chronic left upper extremity pain status post revision of spinal column stimulator Management of pain as per primary service Hypertension Continue Spironolactone Diabetes mellitus Insulin sliding scale Dyslipidemia Continue statin COPD, stable No active wheezing noted on exam Continue albuterol when necessary GERD Continue Protonix History of Cutaneous mycosis fungoides DVT prophylaxis SCDs/TEDs Vital Signs/I&O Vital Signs Date Time Temp Pulse Resp B/P (MAP) Pulse Ox O2 Delivery O2 Flow Rate FiO2 03/20/17 16:00 68 95 Nasal Cannula 2.0 03/20/17 15:30 98.3 18 114/58 (76) Laboratory Data Labs 24H Laboratory Tests 2 03/20/17 07:03: Bedside Glucose (Misc Panel) 93 Allergies Coded Allergies: Paroxetine (Verified Allergy, Intermediate, hives, 01/31/13) Duloxetine (Verified Allergy, Mild, HIVES, 01/31/13) Hydrocodone (Verified Adverse Reaction, Mild, ITCHING, 01/31/13) Home Medications Scheduled (Alprazolam) 2 Mg Tab, 0.25 MG PO BID, (Reported) Docusate Sodium (Colace) 100 Mg Cap, 200 MG PO BID, (Reported) Flurazepam Hcl (Flurazepam Hcl) 30 Mg Cap, 30 MG OR QHS, (Reported) Hydroxyzine Hcl (Hydroxyzine Hcl) 25 Mg Tab, 25 MG OR QHS, (Reported) Metformin Hydrochloride (Metformin HCl) 1,000 Mg Tab, 1,000 MG PO BID, (Reported ) Omeprazole (Omeprazole) 20 Mg Tab, 20 MG OR DAILY, (Reported) Oxybutynin Chloride (Oxybutynin Chloride) 5 Mg Tab, 5 MG OR DAILYCOU, (Reported) Pregabalin (Lyrica (Pregabalin)) 100 Mg Cap, 150 MG PO BID, (Reported) Propranolol Hcl (Propranolol Hcl) 20 Mg Tab, 5 MG OR BID, (Reported) Simvastatin (Simvastatin) 40 Mg Tab, 40 MG OR DAILY, (Reported) Spironolactone (Spironolactone) 50 Mg Tab, 25 MG OR DAILY, (Reported) Tramadol Hcl (Tramadol Hcl) 50 Mg Tab, 100 MG OR Q8HP, (Reported) Trazodone Hcl (Trazodone Hcl) 50 Mg Tab, 50 MG PO QHS, (Reported) [cilostazol] , 100 MG PO BID, (Reported) [dexilant] , 60 MG OR DAILY, (Reported) MAYO KATZ MD March 20, 2017 18:42
[2017-03-20] MEDS ORDERED: GLUCOSE 4 GM CHEW TABLET PO PRN (18:45)
[2017-03-20] MEDS ORDERED: GLUCAGON FOR INJ 1 MG VIAL (J1610) SC PRN (18:45)
[2017-03-20] MEDS ORDERED: DEXTROSE 50% 50 ML SYRINGE IV PRN (18:45)
[2017-03-20] MEDS: IPRATROPIUM 0.5MG/ALBUTEROL 2.5MG INH SOL UD 3ML (DUONEB)(J7620) NEB SCH (19:41)
[2017-03-20] MEDS ORDERED: HumaLOG INSULIN (NovoLOG) PER UNIT SC SCH (21:00)
[2017-03-20] MEDS ORDERED: PROPRANOLOL 10 MG TAB PO SCH (21:00)
[2017-03-20] MEDS: PREGABALIN 75 MG CAP(LYRICA) PO SCH (21:44)
[2017-03-20] MEDS: PANTOPRAZOLE 20 MG TAB PO SCH (21:44)
[2017-03-20] MEDS: DOCUSATE SODIUM 100 MG CAP PO SCH (21:44)
[2017-03-20] MEDS: SIMVASTATIN 40 MG TAB PO SCH (21:44)
[2017-03-21] VITALS: BP 125/63
[2017-03-21] MEDS: ceFAZolin SOD 1 GM in D5W MINI-BAG PLUS 50 ML IV SCH (01:06)
[2017-03-21] MEDS: IPRATROPIUM 0.5MG/ALBUTEROL 2.5MG INH SOL UD 3ML (DUONEB)(J7620) NEB SCH ×2 (02:00→08:53)
[2017-03-21 04:00] VITALS: BP 108/59
[2017-03-21 07:57] LABS: MEAN CORPUSCULAR HEMOGLOBIN 30.9 pg (27.0-33.0); MEAN CORPUSCULAR HGB CONC 32.5 g/dl (32.0-36.5); MEAN CORPUSCULAR VOLUME 95.2 fl (80.0-96.0); RED CELL DISTRIBUTION WIDTH 15.7 % (11.5-14.5); WHITE BLOOD COUNT 5.7 K/mm3 (4.0-10.0)
[2017-03-21 08:00] VITALS: BP 92/57
[2017-03-21 08:10] LABS: ANION GAP 5 MEQ/L (8-16); BLOOD UREA NITROGEN 12 MG/DL (7-18); CALCIUM LEVEL 8.1 MG/DL (8.8-10.2); CARBON DIOXIDE LEVEL 32 MEQ/L (21-32); CHLORIDE LEVEL 103 MEQ/L (98-107); CREATININE FOR GFR 0.64 MG/DL (0.55-1.02); GLOMERULAR FILTRATION RATE > 60.0 (>45); GLUCOSE, FASTING 107 MG/DL (80-110); POTASSIUM SERUM 3.9 MEQ/L (3.5-5.1); SODIUM LEVEL 140 MEQ/L (136-145)
--- NOTE | 2017-03-21 08:47 | RO ---
DATE OF PROCEDURE: 03/20/2017 PREPROCEDURE DIAGNOSIS: Neuropathy of left upper extremity, failure of spinal column stimulator. POSTPROCEDURE DIAGNOSES: Neuropathy of left upper extremity, failure of spinal column stimulator. Procedure: Removal of spinal column stimulator. SURGEON: Jayce Sanches MD TRAVEL DIRECTOR: HUGH Islas ANESTHESIA: General endotracheal anesthesia. COMPLICATIONS: None. Ms. Guajardo is a 61-year-old female patient with a history of pain and neuropathy over the left upper extremity. A spinal column stimulator implant was done approximately ten years ago. The device has been working well for her, but in the last few months the spinal column stimulator stopped working. We discussed alternatives with the patient and we are brining her to the operating room for a revision of the device. The patient has been medically cleared. The patient denies unexplained weight loss, fever, chills, new changes in her urinary or bowel control. DESCRIPTION OF PROCEDURE: After consent was reviewed with the patient, the patient was brought to the procedure room. She received general endotracheal anesthesia. She was placed in the prone position. Cervicothoracic area was cleaned with Betadine solution and draped aseptically. The procedure was done under sterile conditions. I started working at the battery site. Exposure of the battery was done, removing gently the scar tissue and avoiding touching the elements of the spinal column stimulator. After the battery was exposed, the attachment between the lead and the battery was released without complications. Then I attached an extension to the lead. This extension was passed to the marketing representative of [employer]. We started to check the integrity of the system. It was found that there were high impedances in only two contacts were working.The conclusion was that the lead were at some place fractured. Also, the battery was not being able to be recharged. A decision was made to remove the total system. As discussed with the patient prior to coming to the operating room, if the system was not working I was going to remove the system today and bring her back in the future to place a new system. At that point, I started to expose the midline incision. I opened the skin first with #0 blade and then started to do a careful exposure of the lead, removing the scar tissue. After the lead and the sleeves were exposed, I removed gently the lead from the epidural space. The lead came completely out from both the battery and the spine side. Also, the sleeve and all the sutures were completely removed and the battery was removed. I cleaned both the battery and the midline incision with Bacitracin solution. X-rays were done to verify that there was no hardware in the patient. Then I started to close the battery incision and the midline incision sites with intermittent inverted #3-0 Vicryl. Finally, the skin was closed with Dermabond surgical glue. There were no complications during the procedure. HUGH Islas assisted me during this procedure, especially during the surgical closure of the battery site and the midline incision site. After the procedure was finished, the patient was placed in the supine position by the anesthesia staff and she was awakened without complications. Post-Operative Note: I discussed the case with Ms. Guajardo in the recovery room, I will keep her in observation due to the removal of the hardware from the spine. She will be discharged when appropriate. There were no complications during the procedure. RO
[2017-03-21] MEDS: SPIRONOLACTONE 25 MG TAB PO SCH (09:55)
[2017-03-21] MEDS: PANTOPRAZOLE 20 MG TAB PO SCH (09:56)
[2017-03-21] MEDS: DOCUSATE SODIUM 100 MG CAP PO SCH (09:56)
[2017-03-21] MEDS: SIMVASTATIN 40 MG TAB PO SCH (09:57)
[2017-03-21] MEDS: PREGABALIN 75 MG CAP(LYRICA) PO SCH (09:57)
[2017-03-21] MEDS: HumaLOG INSULIN (NovoLOG) PER UNIT SC SCH (10:15)
--- NOTE | 2017-03-21 16:20 | IPNPDOC ---
Text Note Date of Service The patient was seen on 03/21/17. NOTE Subjective: Patient is a 61 year old female with a PMHx of Cutaneous mycosis fungoides, GERD, diabetes mellitus, hypertension, COPD, dyslipidemia, and chronic left upper extremity pain who presented for an elective spinal cord stimulator removal. Patient was seen and examined at the bedside. Currently she has no new complaints. Objective: Vitals (See below) General: Lying in bed, no acute distress, comfortable, AAOx3 HEENT: NC, AT CVS: RRR, +S1S2 Lungs: Fair air entry b/l, -w/r/r Abdomen: Soft, ND, NT, +BSx4 Back: Clean incision site; no erythema, swelling or tenderness noted Extremities: +PPx4, - Edema, - Calf tenderness Assessment and plan: 1. Chronic LUE pain s/p Removal of spinal cord stimulator - Managed by primary team 2. HTN - c/w spironolactone 3. DM2 - c/w ISS 4. DLP - c/w simvastatin 5. COPD - no evidence of exacerbation - c/w Albuterol PRN 6. History of Cutaneous mycosis fungoides 7. GERD - c/w Protonix 8. DVT prophylaxis - c/w SCDs VS,Fishbone, I+O VS, Fishbone, I+O Laboratory Tests 03/21/17 06:49 Red Blood Count 4.44, Mean Corpuscular Volume 95.2, Mean Corpuscular Hemoglobin 30.9, Mean Corpuscular Hemoglobin Concent 32.5, Red Cell Distribution Width 15.7 H, Calcium Level 8.1 L Vital Signs Date Time Temp Pulse Resp B/P (MAP) Pulse Ox O2 Delivery O2 Flow Rate FiO2 03/21/17 08:00 98.5 80 18 92/57 (69) 93 Room Air 03/21/17 04:00 2.0 I&O- Last 24 Hours up to 6 AM 03/21/17 06:00 Intake Total 3850 ml Output Total 2555 ml Balance 1295 ml HI BAUGH MD March 21, 2017 16:20
== END 2017-03-21 10:30 | disposition home or self-care (01) ==
LOC: M SDC 05:51 → M PED 10:39 → M SDC 03-21 10:30
PROVIDERS: ATTEND Anesthesiology
DX: T85.192A Other mechanical complication of implanted electronic neurostimulator of spinal cord electrode (lead), initial encounter (principal); T85.193A Other mechanical complication of implanted electronic neurostimulator, generator, initial encounter; G56.92 Unspecified mononeuropathy of left upper limb; E11.9 Type 2 diabetes mellitus without complications; I10 Essential (primary) hypertension; J44.9 Chronic obstructive pulmonary disease, unspecified; E78.5 Hyperlipidemia, unspecified; K21.9 Gastro-esophageal reflux disease without esophagitis; Z79.899 Other long term (current) drug therapy; I25.10 Atherosclerotic heart disease of native coronary artery without angina pectoris; Z88.8 Allergy status to other drugs, medicaments and biological substances; F17.210 Nicotine dependence, cigarettes, uncomplicated
CPT/HCPCS: 36415; 63661; 63688; 76000; 80048; 85027; 94640; 96374; 96376; J0690; J1100; J2250; J2370; J2405; J3010; L9900

== ENCOUNTER → 2017-03-29 | Outpatient (CLI) | payer MEDICARE, BC ==
--- NOTE | 2017-04-11 00:48 | ECWPNPC ---
PATIENT NAME: AMI FERNANDEZ : 1955 GENDER: FEMALE VISIT DATE: 03/29/2017 DISCHARGE DATE: 03/29/17 1648 VISIT LOCKED DATE TIME: PHYSICIAN: JUAN ALBERTO MCFARLAND RESOURCE: JUAN ALBERTO MCFARLAND REASON FOR APPOINTMENT 1. LEFT ARM/HAND PAIN HISTORY OF PRESENT ILLNESS HISTORY OF PRESENT ILLNESS: PAIN THE PATIENT DESCRIBES THE PAIN... 61 YEAR OLD FEMALE PATIENT WITH HISTORY OF CHRONIC LEFT ARM AND HAND PAIN. PATIENT DESCRIBES THE PAIN ACHING WITH A PAIN SCORE OF 3/10. PATIENT HAD HER DCS REMOVED ON 03/20/17 AND REPORTS DOING VERY WELL FROM THE REMOVAL. AT THIS TIME THE PATIENT STATES HER PAIN IS VERY MANAGEABLE AND SHE DOES NOT WANT TO HAVE THE DCS REPLACED AT THIS TIME. PATIENT DENIES UNEXPLAINABLE WEIGHT LOSS, FEVER, CHILLS, NEW CHANGES ON HER URINARY OR BOWEL CONTROL. FALL RISK SCREENING: SCREENING :NO FALLS IN THE PAST YEAR CURRENT MEDICATIONS TAKING FLURAZEPAM HCL 30 MG CAPSULE 1 CAPSULE AT BEDTIME ORALLY ONCE A DAY TAKING OMEPRAZOLE 20MG 40 MG TABLET 1 TAB(S) ORAL DAILY TAKING METFORMIN HCL 1000 MG TABLET 2 TAB(S) ORALLY TWICE A DAY TAKING OXYBUTYNIN CHLORIDE 5 MG TABLET 1 TAB(S) ORALLY DAILY TAKING PROPRANOLOL HCL 10 MG TABLET 2 ORALLY TWICE A DAY TAKING SIMVASTATIN 40 40MG TABLET 1 TAB(S) ORAL DAILY TAKING SPIRONOLACTONE 25 MG TABLET 1 TABLET ORALLY ONCE A DAY TAKING TRAZODONE 50 50MG TABLET 1 TAB(S) ORAL DAILY TAKING DOC-Q-LACE 100 MG CAPSULE 6 CAPSULE NEEDED ORALLY ONCE A DAY TAKING TRADJENTA 5 MG TABLET 1 TABLET ORALLY ONCE A DAY TAKING ASPIRIN ADULT LOW DOSE 81 MG TABLET DELAYED RELEASE 1 TABLET ORALLY ONCE A DAY TAKING MULTIVITAMIN ADULT - TABLET 1 TAB ORALLY DAILY TAKING GABAPENTIN 300 MG CAPSULE 1 CAPSULE ORALLY BID TAKING TRAMADOL HCL 50 MG TABLET 2 ORALLY Q8H PRN MDD6 3MOS SUPPLY CAT D CHRONIC PAIN NOT-TAKING MAGNESIUM 400 CAPSULE 1 ORALLY ONCE A DAY NOT-TAKING IRON 1 TAB ORAL DAILY NOT-TAKING HYDROXYZINE HCL 25 MG TABLET 2 TABS ORALLY AT BEDTIME NOT-TAKING TRAMADOL HCL 50 MG TABLET 2 ORALLY EVERY 68HRS PRN MDD6 NOT-TAKING TESSALON PERLES 300 MG CAPSULE 1 CAPSULE ORALLY NEEDED NOT-TAKING FOLIC ACID XTRA 1 TABLET 1 TAB(S) ORALLY DAILY NOT-TAKING FOLIC ACID 1 MG TABLET 1 TABLET ORALLY ONCE A DAY NOT-TAKING TRAMADOL HCL 50 MG TABLETS 2 TABLET ORALLY 2TAB Q8H PRN MDD 6 NOT-TAKING DEXILANT 60 MG CAPSULE DELAYED RELEASE 1 CAPSULE ORALLY ONCE A DAY NOT-TAKING AMITIZA 24 MCG CAPSULE 1 CAPSULE WITH FOOD ORALLY THREE TIMES A DAY NOT-TAKING ALPRAZOLAM 0.25 MG TABLET 1 TABLET ORALLY BID PRN NOT-TAKING CILOSTAZOL 60 TABLET 1 TAB(S) ORALLY DAILY MEDICATION LIST REVIEWED AND RECONCILED WITH THE PATIENT PAST MEDICAL HISTORY CUTANEOUS MYCOSIS FUNGOIDES HISTORY OF H PYROI FOLLOWING IN [place] 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 THINKING ABOUT QUITTING , COUNSELED THE PATIENT ON SMOKING CESSATION, EDUCATION PROVIDED INFO TO PT. LEARNING BARRIERS / SPECIAL NEEDS ABILITY TO UNDERSTAND VERBAL INSTRUCTIONS AVERAGE , ABILITY TO UNDERSTAND WRITTEN INSTRUCTIONS AVERAGE , KNOWLEDGE OF EDUCATIONAL NEEDS/TREATMENT PLAN AVERAGE , LEARNING PREFERENCE NO PREFERENCE , ORIENTED TO PLAN OF CARE: PATIENT , PAIN MANAGEMENT PATIENT , TEACHING MATERIALS DEMONSTRATION/VERBAL INSTRUCTION , RESPONSE TO EDUCATION EXPLAINES ACCURATELY/VERBALIZES UNDERSTANDING , TEACHING MATERIALS DEMONSTRATION/VERBAL INSTRUCTION , RESPONSE TO EDUCATION EXPLAINS ACCURATELY/VERBALIZES UNDERSTANDING . PAIN CLINIC PFS, CLERGY, PUBLIC HEALTH REFERRALS PFS REFERRAL NEEDED? NO , CLERGY REFERRAL NEEDED? NO , PUBLIC HEALTH REFERRAL NEEDED? NO , WAS THE PROVIDER NOTIFIED OF ANY PERTINENT INFO? NO . ADVANCE DIRECTIVES HEALTH CARE PROXY?NO POWER OF ROCK LATHER?NO HOSPITALIZATION/MAJOR DIAGNOSTIC PROCEDURE NO HOSPITALIZATION HISTORY. REVIEW OF SYSTEMS CONSTITUTIONAL: ANY CHANGE IN YOUR MEDICAL CONDITION? NO . CHILLS NO . FEVER NO . INFECTION: DO YOU HAVE NEW INFECTIONS? NO . DO YOU HAVE HISTORY OF MRSA? NO . MUSCULOSKELETAL: ANY NEW PATTERNS OF PAIN OR NUMBNESS? NO . GASTROENTEROLOGY: ANY NEW CHANGE IN BOWEL CONTROL? NO . GENITOURINARY: ANY NEW CHANGE IN BLADDER CONTROL? NO . IS THERE A CHANCE YOU COULD BE ? NO . HEMATOLOGY/LYMPH: DO YOU TAKE ANY BLOOD THINNERS? (FOR EXAMPLE- COUMADIN, PLAVIX, AGGRENOX, PLATEL, PRADAXA, OR XARELTO) NO . WHEN WAS YOUR LAST DOSE? DATE: TIME: . NEUROLOGY: HAVE YOU FALLEN IN THE PAST 6 MONTHS? NO . ANY NEW EXTREMITY NUMBNESS OR WEAKNESS? NO . CARDIOLOGY: DO YOU HAVE A PACEMAKER OR DEFIBRILLATOR? NO . RESPIRATORY: HAVE YOU BEEN SICK IN THE PAST WEEK? NO . FEVER NO . FLU LIKE SYMPTOMS? NO . COUGH NO . INTEGUMENTARY: DO YOU HAVE ANY RASHES OR OPEN SORES? NO . ALLERGIC/IMMUNO: ARE YOU ALLERGIC TO SHELLFISH OR IV DYE? NO . ANY NEW ALLERGIES? NO . PSYCHIATRIC: DO YOU HAVE THOUGHTS OF HURTING YOURSELF OR SOMEONE ELSE? NO . ARE YOU ABUSED, NEGLECTED, OR IN AN UNSAFE ENVIRONMENT? NO . ENDOCRINOLOGY: ARE YOU DIABETIC? YES . OTHER: DO YOU NEED ANY PRESCRIPTIONS? NO . IF YES, PLEASE LIST: ____ . ANY NEW PROBLEMS WITH YOUR MEDICATIONS? NO . WHEN DID YOU LAST EAT? ____ . WHEN DID YOU LAST DRINK? ____ . WHAT DID YOU LAST DRINK? ____ . NAME OF PERSON DRIVING YOU HOME? ____ . DO YOU HAVE ANY OTHER QUESTIONS OR CONCERNS NO . REVIEWED BY: PROVIDER: JUAN ALBERTO MCFARLAND MD . VITAL SIGNS WT 111.4 LBS, HT 63 IN, BMI 19.73 INDEX, BP 122/71 MM HG, HR 91 /MIN, RR 16 /MIN, TEMP 99.1 F, OXYGEN SAT % 96%, NA INITIALS TL 1544, REVIEWED BY: KG. EXAMINATION : PATIENT IS ALERT O X 3 AND COOPERATIVE. TENNESS IN THE LEFT ARM AREA STARTING AT THE SHOULDER GOING TO THE LEFT HAND. ASSESSMENTS POLYNEUROPATHY, UNSPECIFIED - G62.9 (PRIMARY) TREATMENT POLYNEUROPATHY, UNSPECIFIED NOTES: WE DISCUSSED SEVERAL ISSUES WITH MRS. FERNANDEZ' PAIN MANAGEMENT CASE. AT THIS TIME THE PATIENT REPORTS DOING VERY WELL FROM THE REMOVAL OF THE DCS. AT THIS TIME THE PATIENT DOES NOT WANT TO MOVE FORWARD WITH ANOTHER DORSAL COLUMN STIMULATOR. WE DISCUSSED OTHER POSSIBLE INTERVENTIONS THAT MAY AID THE PATIENT IN PAIN RELIEF IF THE PAIN INCREASES. PATIENT WILL RETURN TO THE CLINIC IN 6 WEEKS BUT WAS ADVISED TO CALL IF THE PAIN SIGNIFICANTLY INCREASES. INSTRUCTIONS WERE GIVEN, QUESTIONS WERE ANSWERED, PATIENT REPORTS UNDERSTANDING AND AGREES WITH THE PLAN. IDORA, DOCUMENTED THE ABOVE INFORMATION ACTING A SCRIBE FOR DR. MCFARLAND. I HAVE REVIEWED THE ABOVE DOCUMENT, WRITTEN BY DORA CORNEJO AND I VERIFY THAT IT IS ACCURATE. DISPOSITION & COMMUNICATION FOLLOW UP 6 WEEKS ELECTRONICALLY SIGNED BY JUAN ALBERTO MCFARLAND MD ON 04/10/2017 AT 07:45 PM EDT DISCLAIMER : THIS IS A VISIT SUMMARY EXTRACTED FROM THE [employer] CHART. IT IS NOT A COPY OF THE [employer] PROGRESS NOTE. MTDD
== END ==
LOC: M PAIN 15:40
PROVIDERS: ATTEND Anesthesiology
DX: G90.512 Complex regional pain syndrome I of left upper limb (principal); G62.9 Polyneuropathy, unspecified; E11.9 Type 2 diabetes mellitus without complications; E78.00 Pure hypercholesterolemia, unspecified; I10 Essential (primary) hypertension; Z88.5 Allergy status to narcotic agent; Z88.8 Allergy status to other drugs, medicaments and biological substances; Z79.84 Long term (current) use of oral hypoglycemic drugs; Z79.82 Long term (current) use of aspirin; Z79.891 Long term (current) use of opiate analgesic; Z79.899 Other long term (current) drug therapy

== ENCOUNTER → 2017-04-13 | Outpatient (CLI) | payer MEDICARE, BC ==
--- NOTE | 2017-04-14 02:20 | ECWPNPC ---
PATIENT NAME: AMI FERNANDEZ : 1955 GENDER: FEMALE VISIT DATE: 04/13/2017 DISCHARGE DATE: 04/13/17 1144 VISIT LOCKED DATE TIME: PHYSICIAN: ROXANNE TREADWELL RESOURCE: ROXANNE TREADWELL REASON FOR APPOINTMENT 1. LEFT ARM HISTORY OF PRESENT ILLNESS HISTORY OF PRESENT ILLNESS: HERE FOR F/U AND MANAGEMENT OF CHRONIC LEFT ANTERIOR CHEST AND LEFT ARM PAIN.HAD DCS REMOVED 3 WEEKS AGO.PATIENT IS DOING WELL AND DOESNT WANT IT REPLACED.HISTORY OF LEFT ARM PAIN SINCE VASCULAR SURGERY LEFT ARM 2003.RATING PAIN VAS 2/10.CURRENTLY USING GABAPENTIN 300MG BID AND TRAMADOL 50MG TWO TABS TID.FINDS THIS MEDICATION EFFECTIVE AT REDUCING PAIN AND KEEPING HER FUNCTIONAL.DENIES ADVERSE SIDE EFFECTS. PAIN THE PATIENT DESCRIBES THE PAIN... FALL RISK SCREENING: SCREENING :NO FALLS IN THE PAST YEAR CURRENT MEDICATIONS TAKING FLURAZEPAM HCL 30 MG CAPSULE 1 CAPSULE AT BEDTIME ORALLY ONCE A DAY TAKING OMEPRAZOLE 20MG 40 MG TABLET 1 TAB(S) ORAL DAILY TAKING METFORMIN HCL 1000 MG TABLET 2 TAB(S) ORALLY TWICE A DAY TAKING OXYBUTYNIN CHLORIDE 5 MG TABLET 1 TAB(S) ORALLY DAILY TAKING PROPRANOLOL HCL 10 MG TABLET 2 ORALLY TWICE A DAY TAKING SIMVASTATIN 40 40MG TABLET 1 TAB(S) ORAL DAILY TAKING SPIRONOLACTONE 25 MG TABLET 1 TABLET ORALLY ONCE A DAY TAKING TRAZODONE 50 50MG TABLET 1 TAB(S) ORAL DAILY TAKING DOC-Q-LACE 100 MG CAPSULE 6 CAPSULE NEEDED ORALLY ONCE A DAY TAKING TRADJENTA 5 MG TABLET 1 TABLET ORALLY ONCE A DAY TAKING ASPIRIN ADULT LOW DOSE 81 MG TABLET DELAYED RELEASE 1 TABLET ORALLY ONCE A DAY TAKING MULTIVITAMIN ADULT - TABLET 1 TAB ORALLY DAILY TAKING GABAPENTIN 300 MG CAPSULE 1 CAPSULE ORALLY BID TAKING TRAMADOL HCL 50 MG TABLET 2 ORALLY Q8H PRN MDD6 3MOS SUPPLY CAT D CHRONIC PAIN NOT-TAKING MAGNESIUM 400 CAPSULE 1 ORALLY ONCE A DAY NOT-TAKING IRON 1 TAB ORAL DAILY NOT-TAKING HYDROXYZINE HCL 25 MG TABLET 2 TABS ORALLY AT BEDTIME NOT-TAKING TRAMADOL HCL 50 MG TABLET 2 ORALLY EVERY 68HRS PRN MDD6 NOT-TAKING TESSALON PERLES 300 MG CAPSULE 1 CAPSULE ORALLY NEEDED NOT-TAKING FOLIC ACID XTRA 1 TABLET 1 TAB(S) ORALLY DAILY NOT-TAKING FOLIC ACID 1 MG TABLET 1 TABLET ORALLY ONCE A DAY NOT-TAKING TRAMADOL HCL 50 MG TABLETS 2 TABLET ORALLY 2TAB Q8H PRN MDD 6 NOT-TAKING DEXILANT 60 MG CAPSULE DELAYED RELEASE 1 CAPSULE ORALLY ONCE A DAY NOT-TAKING AMITIZA 24 MCG CAPSULE 1 CAPSULE WITH FOOD ORALLY THREE TIMES A DAY NOT-TAKING ALPRAZOLAM 0.25 MG TABLET 1 TABLET ORALLY BID PRN NOT-TAKING CILOSTAZOL 60 TABLET 1 TAB(S) ORALLY DAILY MEDICATION LIST REVIEWED AND RECONCILED WITH THE PATIENT PAST MEDICAL HISTORY CUTANEOUS MYCOSIS FUNGOIDES HISTORY OF H PYROI FOLLOWING IN [place] 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 THINKING ABOUT QUITTING , COUNSELED THE PATIENT ON SMOKING CESSATION, EDUCATION PROVIDED INFO TO PT. LEARNING BARRIERS / SPECIAL NEEDS ABILITY TO UNDERSTAND VERBAL INSTRUCTIONS AVERAGE , ABILITY TO UNDERSTAND WRITTEN INSTRUCTIONS AVERAGE , KNOWLEDGE OF EDUCATIONAL NEEDS/TREATMENT PLAN AVERAGE , LEARNING PREFERENCE NO PREFERENCE , ORIENTED TO PLAN OF CARE: PATIENT , PAIN MANAGEMENT PATIENT , TEACHING MATERIALS DEMONSTRATION/VERBAL INSTRUCTION , RESPONSE TO EDUCATION EXPLAINES ACCURATELY/VERBALIZES UNDERSTANDING , TEACHING MATERIALS DEMONSTRATION/VERBAL INSTRUCTION , RESPONSE TO EDUCATION EXPLAINS ACCURATELY/VERBALIZES UNDERSTANDING . PAIN CLINIC PFS, CLERGY, PUBLIC HEALTH REFERRALS HAS THE PATIENT BEEN EDUCATED REGARDING HIS/HER PLAN OF CARE?YES HAS THE PATIENT BEEN EDUCATED REGARDING PAIN, THE RISK FOR PAIN, THE IMPORTANCE OF EFFECTIVE PAIN MANAGEMENT, AND THE PAIN ASSESSMENT PROCESS?YES ADVANCE DIRECTIVES HEALTH CARE PROXY?NO POWER OF CAPTURE MANAGER?NO REVIEW OF SYSTEMS CONSTITUTIONAL: ANY CHANGE IN YOUR MEDICAL CONDITION? NO . CHILLS NO . FEVER NO . INFECTION: DO YOU HAVE NEW INFECTIONS? NO . DO YOU HAVE HISTORY OF MRSA? NO . MUSCULOSKELETAL: ANY NEW PATTERNS OF PAIN OR NUMBNESS? NO . GASTROENTEROLOGY: ANY NEW CHANGE IN BOWEL CONTROL? NO . GENITOURINARY: ANY NEW CHANGE IN BLADDER CONTROL? NO . IS THERE A CHANCE YOU COULD BE ? NO . HEMATOLOGY/LYMPH: DO YOU TAKE ANY BLOOD THINNERS? (FOR EXAMPLE- COUMADIN, PLAVIX, AGGRENOX, PLATEL, PRADAXA, OR XARELTO) NO . WHEN WAS YOUR LAST DOSE? DATE: TIME: . NEUROLOGY: HAVE YOU FALLEN IN THE PAST 6 MONTHS? NO . ANY NEW EXTREMITY NUMBNESS OR WEAKNESS? NO . CARDIOLOGY: DO YOU HAVE A PACEMAKER OR DEFIBRILLATOR? NO . RESPIRATORY: HAVE YOU BEEN SICK IN THE PAST WEEK? YES . FEVER NO . FLU LIKE SYMPTOMS? NO . COUGH YES . INTEGUMENTARY: DO YOU HAVE ANY RASHES OR OPEN SORES? NO . ALLERGIC/IMMUNO: ARE YOU ALLERGIC TO SHELLFISH OR IV DYE? NO . ANY NEW ALLERGIES? NO . PSYCHIATRIC: DO YOU HAVE THOUGHTS OF HURTING YOURSELF OR SOMEONE ELSE? NO . ARE YOU ABUSED, NEGLECTED, OR IN AN UNSAFE ENVIRONMENT? NO . ENDOCRINOLOGY: ARE YOU DIABETIC? YES . OTHER: DO YOU NEED ANY PRESCRIPTIONS? YES . IF YES, PLEASE LIST: GABAPENTIN . ANY NEW PROBLEMS WITH YOUR MEDICATIONS? NO . WHEN DID YOU LAST EAT? ____ . WHEN DID YOU LAST DRINK? ____ . WHAT DID YOU LAST DRINK? ____ . NAME OF PERSON DRIVING YOU HOME? ____ . DO YOU HAVE ANY OTHER QUESTIONS OR CONCERNS NO . REVIEWED BY: PROVIDER: ROXANNE QUINTERO . VITAL SIGNS WT 111.0 LBS, HT 63 IN, BMI 19.66 INDEX, BP 122/69 MM HG, HR 86 /MIN, RR 16 /MIN, TEMP 98.8 F, OXYGEN SAT % 98%, NA INITIALS TL 1122, REVIEWED BY: CS. EXAMINATION GENERAL EXAMINATION: LUNGS:LUNG SOUNDS ARE CLEAR. HEART:HEART RATE REGULAR. MUSCULOSKELETAL:*ROJM UPPER EXTREMITIES-FULL.MST 5/5 BUE. DIAGNOSTIC: . : LOCATION OF PAINLEFT ARM/SHOULDER/HAND-NONTENDER WITH PALPATION OF LEFT ARM AND HAND .. 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 IT IS NOT A COPY OF THE [employer] PROGRESS NOTE. RO
== END ==
LOC: M PAIN 11:00
PROVIDERS: ATTEND Nurse Practitioner Family
DX: G90.512 Complex regional pain syndrome I of left upper limb (principal); E11.9 Type 2 diabetes mellitus without complications; E78.00 Pure hypercholesterolemia, unspecified; I10 Essential (primary) hypertension; F17.210 Nicotine dependence, cigarettes, uncomplicated; Z88.5 Allergy status to narcotic agent; Z88.8 Allergy status to other drugs, medicaments and biological substances; Z79.84 Long term (current) use of oral hypoglycemic drugs; Z79.82 Long term (current) use of aspirin; Z79.891 Long term (current) use of opiate analgesic; Z79.899 Other long term (current) drug therapy

== ENCOUNTER → 2017-07-11 | Outpatient (CLI) | payer MEDICARE, BC ==
[~2017-07-11] MED LIST changes: -COLA100C3 PO; +COLA100C5 PO; -METF1000 PO; +METF10004 PO
--- NOTE | 2017-07-21 01:57 | ECWPNPC ---
PATIENT NAME: AMI FERNANDEZ : 1955 GENDER: FEMALE VISIT DATE: 07/11/2017 DISCHARGE DATE: 07/11/17 1148 VISIT LOCKED DATE TIME: PHYSICIAN: ROXANNE TREADWELL RESOURCE: ROXANNE TREADWELL HISTORY OF PRESENT ILLNESS HISTORY OF PRESENT ILLNESS: HERE FOR F/U AND MANAGEMENT OF CHRONIC LEFT ANTERIOR CHEST AND LEFT ARM PAIN.HAD DCS REMOVED SEVERAL WEEKS AGO.PATIENT IS DOING WELL .HISTORY OF LEFT ARM PAIN SINCE VASCULAR SURGERY LEFT ARM 2003.RATING PAIN VAS 2/10.CURRENTLY USING GABAPENTIN 300MG BID AND TRAMADOL 50MG TWO TABS TID.FINDS THIS MEDICATION EFFECTIVE AT REDUCING PAIN AND KEEPING HER FUNCTIONAL.DENIES ADVERSE SIDE EFFECTS. PAIN THE PATIENT DESCRIBES THE PAIN... THE PATIENT DESCRIBES THE PAIN... FALL RISK SCREENING: SCREENING :NO FALLS IN THE PAST YEAR CURRENT MEDICATIONS TAKING FLURAZEPAM HCL 30 MG CAPSULE 1 CAPSULE AT BEDTIME ORALLY ONCE A DAY TAKING OMEPRAZOLE 20MG 40 MG TABLET 1 TAB(S) ORAL DAILY TAKING METFORMIN HCL 1000 MG TABLET 2 TAB(S) ORALLY TWICE A DAY TAKING OXYBUTYNIN CHLORIDE 5 MG TABLET 1 TAB(S) ORALLY DAILY TAKING PROPRANOLOL HCL 10 MG TABLET 2 ORALLY TWICE A DAY TAKING SIMVASTATIN 40 40MG TABLET 1 TAB(S) ORAL DAILY TAKING SPIRONOLACTONE 25 MG TABLET 1 TABLET ORALLY ONCE A DAY TAKING TRAZODONE 50 50MG TABLET 1 TAB(S) ORAL DAILY TAKING DOC-Q-LACE 100 MG CAPSULE 6 CAPSULE NEEDED ORALLY ONCE A DAY TAKING TRADJENTA 5 MG TABLET 1 TABLET ORALLY ONCE A DAY TAKING ASPIRIN ADULT LOW DOSE 81 MG TABLET DELAYED RELEASE 1 TABLET ORALLY ONCE A DAY TAKING MULTIVITAMIN ADULT - TABLET 1 TAB ORALLY DAILY TAKING TRAMADOL HCL 50 MG TABLET 2 ORALLY Q8H PRN MDD6 3MOS SUPPLY CAT D CHRONIC PAIN TAKING GABAPENTIN 300 MG CAPSULE 1 CAPSULE ORALLY BID NOT-TAKING MAGNESIUM 400 CAPSULE 1 ORALLY ONCE A DAY NOT-TAKING IRON 1 TAB ORAL DAILY NOT-TAKING HYDROXYZINE HCL 25 MG TABLET 2 TABS ORALLY AT BEDTIME NOT-TAKING TRAMADOL HCL 50 MG TABLET 2 ORALLY EVERY 68HRS PRN MDD6 NOT-TAKING TESSALON PERLES 300 MG CAPSULE 1 CAPSULE ORALLY NEEDED NOT-TAKING FOLIC ACID XTRA 1 TABLET 1 TAB(S) ORALLY DAILY NOT-TAKING FOLIC ACID 1 MG TABLET 1 TABLET ORALLY ONCE A DAY NOT-TAKING TRAMADOL HCL 50 MG TABLETS 2 TABLET ORALLY 2TAB Q8H PRN MDD 6 NOT-TAKING DEXILANT 60 MG CAPSULE DELAYED RELEASE 1 CAPSULE ORALLY ONCE A DAY NOT-TAKING AMITIZA 24 MCG CAPSULE 1 CAPSULE WITH FOOD ORALLY THREE TIMES A DAY NOT-TAKING ALPRAZOLAM 0.25 MG TABLET 1 TABLET ORALLY BID PRN NOT-TAKING CILOSTAZOL 60 TABLET 1 TAB(S) ORALLY DAILY MEDICATION LIST REVIEWED AND RECONCILED WITH THE PATIENT PAST MEDICAL HISTORY CUTANEOUS MYCOSIS FUNGOIDES HISTORY OF H PYROI FOLLOWING IN [place] FOR A 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 AND POSSIBLE REMOVAL SPINAL CORD STIMULATOR FOR NERVE DAMAGE NIDDM HIGH CHOLESTEROL HYPERTENSION ALLERGIES VICODIN: ITCHING: ALLERGY PAXIL: HIVES: ALLERGY CYMBALTA: SEVERE ITCHING: ALLERGY REVIEW OF SYSTEMS REVIEWED BY: PROVIDER: ROXANNE QUINTERO . CONSTITUTIONAL: ANY CHANGE IN YOUR MEDICAL CONDITION? NO . CHILLS NO . FEVER NO . INFECTION: DO YOU HAVE NEW INFECTIONS? NO . DO YOU HAVE HISTORY OF MRSA? NO . MUSCULOSKELETAL: ANY NEW PATTERNS OF PAIN OR NUMBNESS? NO . GASTROENTEROLOGY: ANY NEW CHANGE IN BOWEL CONTROL? NO . GENITOURINARY: ANY NEW CHANGE IN BLADDER CONTROL? NO . IS THERE A CHANCE YOU COULD BE ? NO . HEMATOLOGY/LYMPH: DO YOU TAKE ANY BLOOD THINNERS? (FOR EXAMPLE- COUMADIN, PLAVIX, AGGRENOX, PLATEL, PRADAXA, OR XARELTO) NO . WHEN WAS YOUR LAST DOSE? DATE: TIME: . NEUROLOGY: HAVE YOU FALLEN IN THE PAST 6 MONTHS? NO . ANY NEW EXTREMITY NUMBNESS OR WEAKNESS? NO . CARDIOLOGY: DO YOU HAVE A PACEMAKER OR DEFIBRILLATOR? NO . RESPIRATORY: HAVE YOU BEEN SICK IN THE PAST WEEK? NO . FEVER NO . FLU LIKE SYMPTOMS? NO . COUGH NO . INTEGUMENTARY: DO YOU HAVE ANY RASHES OR OPEN SORES? NO . ALLERGIC/IMMUNO: ARE YOU ALLERGIC TO SHELLFISH OR IV DYE? NO . ANY NEW ALLERGIES? NO . PSYCHIATRIC: DO YOU HAVE THOUGHTS OF HURTING YOURSELF OR SOMEONE ELSE? NO . ARE YOU ABUSED, NEGLECTED, OR IN AN UNSAFE ENVIRONMENT? NO . ENDOCRINOLOGY: ARE YOU DIABETIC? YES . OTHER: DO YOU NEED ANY PRESCRIPTIONS? YES . IF YES, PLEASE LIST: GABAPENTIN, TRAMADOL . ANY NEW PROBLEMS WITH YOUR MEDICATIONS? NO . WHEN DID YOU LAST EAT? ____ . WHEN DID YOU LAST DRINK? ____ . WHAT DID YOU LAST DRINK? ____ . NAME OF PERSON DRIVING YOU HOME? ____ . DO YOU HAVE ANY OTHER QUESTIONS OR CONCERNS NO . VITAL SIGNS WT 111.0 LBS, HT 63 IN, BMI 19.66 INDEX, BP 112/65 MM HG, HR 86 /MIN, RR 16 /MIN, TEMP 97.0 F, OXYGEN SAT % 95%, NA INITIALS AW 1121, REVIEWED BY: NL. EXAMINATION GENERAL EXAMINATION: GENERAL APPEARANCE:COMFORTABLE. PSYCHAFFECT NORMAL. NECK:TRACHEA MIDLINE. NO CERVICAL OR SUPRACLAVICULAR LYMPHADENOPATHY NOTED. LUNGS:LUNG RAUSCH ARE CLEAR TO AUSCULTATION BILATERALLY. GOOD MOVEMENT OF AIR. HEART:S1, S2 IN A REGULAR RATE AND RHYTHM. NO SIGNIFICANT MURMURS, RUBS OR GALLOPS NOTED. 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 - G90.512 (PRIMARY) TREATMENT COMPLEX REGIONAL PAIN SYNDROME TYPE 1 OF LEFT UPPER EXTREMITY CONTINUE DOC-Q-LACE CAPSULE, 100 MG, 6 CAPSULE NEEDED, ORALLY, ONCE A DAY REFILL TRAMADOL HCL TABLET, 50 MG, 2, ORALLY, Q8H PRN MDD6 3MOS SUPPLY CAT D CHRONIC PAIN, 90 DAY(S), 540, REFILLS 0 REFILL GABAPENTIN CAPSULE, 300 MG, 1 CAPSULE, ORALLY, BID, 30 DAY(S), 60 CAPSULE, REFILLS 5 PROCEDURE CODES FA211 ESTABILISHED PATIENT [facility] FACILITY CHARGE G8730 PAIN ASSESS POS TOOL F/U PLAN DOC G8427 DOC MEDS VERIFIED W/PT OR RE DISPOSITION & COMMUNICATION FOLLOW UP 3 MONTHS ELECTRONICALLY SIGNED BY LEON BERNARDO ON 07/17/2017 AT 05:22 PM EDT DISCLAIMER : THIS IS A VISIT SUMMARY EXTRACTED FROM THE [facility] CHART. IT IS NOT A COPY OF THE [facility] PROGRESS NOTE. NONID
== END ==
LOC: M PAIN 11:00
PROVIDERS: ATTEND Nurse Practitioner Family
DX: G90.512 Complex regional pain syndrome I of left upper limb (principal); E11.9 Type 2 diabetes mellitus without complications; E78.00 Pure hypercholesterolemia, unspecified; I10 Essential (primary) hypertension; Z88.5 Allergy status to narcotic agent; Z88.8 Allergy status to other drugs, medicaments and biological substances; Z79.84 Long term (current) use of oral hypoglycemic drugs; Z79.82 Long term (current) use of aspirin; Z79.891 Long term (current) use of opiate analgesic; Z79.899 Other long term (current) drug therapy

== ENCOUNTER → 2018-01-08 | Outpatient (CLI) | payer MEDICARE, BC | LOC: M PAIN 11:00 | DX: G90.512 Complex regional pain syndrome I of left upper limb (principal); E11.9 Type 2 diabetes mellitus without complications; E78.00 Pure hypercholesterolemia, unspecified; I10 Essential (primary) hypertension; Z88.5 Allergy status to narcotic agent; Z88.8 Allergy status to other drugs, medicaments and biological substances; Z79.84 Long term (current) use of oral hypoglycemic drugs; Z79.82 Long term (current) use of aspirin; Z79.891 Long term (current) use of opiate analgesic; Z79.899 Other long term (current) drug therapy | CPT/HCPCS: G0463 ==

== ENCOUNTER → 2018-03-12 | Outpatient (CLI) | payer MEDICARE, BC | LOC: M PAIN 13:15 | DX: G90.512 Complex regional pain syndrome I of left upper limb (principal); E11.9 Type 2 diabetes mellitus without complications; E78.00 Pure hypercholesterolemia, unspecified; I10 Essential (primary) hypertension; F17.210 Nicotine dependence, cigarettes, uncomplicated; D49.0 Neoplasm of unspecified behavior of digestive system; Z79.82 Long term (current) use of aspirin; Z79.891 Long term (current) use of opiate analgesic; Z79.899 Other long term (current) drug therapy; Z90.49 Acquired absence of other specified parts of digestive tract; Z88.5 Allergy status to narcotic agent; Z88.8 Allergy status to other drugs, medicaments and biological substances; Z79.84 Long term (current) use of oral hypoglycemic drugs | CPT/HCPCS: G0463 ==

== ENCOUNTER → 2018-06-27 | Outpatient (CLI) | payer MEDICARE, BC | LOC: M PAIN 10:30 | DX: G90.512 Complex regional pain syndrome I of left upper limb (principal); E11.9 Type 2 diabetes mellitus without complications; E78.00 Pure hypercholesterolemia, unspecified; I10 Essential (primary) hypertension; F17.200 Nicotine dependence, unspecified, uncomplicated; Z79.01 Long term (current) use of anticoagulants; Z79.84 Long term (current) use of oral hypoglycemic drugs; Z79.82 Long term (current) use of aspirin; Z79.891 Long term (current) use of opiate analgesic; Z79.899 Other long term (current) drug therapy; Z88.5 Allergy status to narcotic agent; Z88.8 Allergy status to other drugs, medicaments and biological substances | CPT/HCPCS: G0463 ==

== ENCOUNTER → 2018-08-08 | Outpatient (CLI) | payer MEDICARE, BC | LOC: M PAIN 09:45 | DX: G90.512 Complex regional pain syndrome I of left upper limb (principal); E11.9 Type 2 diabetes mellitus without complications; E78.00 Pure hypercholesterolemia, unspecified; I10 Essential (primary) hypertension; J44.9 Chronic obstructive pulmonary disease, unspecified; F17.210 Nicotine dependence, cigarettes, uncomplicated; Z79.891 Long term (current) use of opiate analgesic; Z79.899 Other long term (current) drug therapy; Z88.5 Allergy status to narcotic agent; Z88.8 Allergy status to other drugs, medicaments and biological substances | CPT/HCPCS: G0463 ==

== ENCOUNTER → 2019-01-08 | Outpatient (CLI) | payer MEDICARE, BC ==
[~2019-01-08] MED LIST changes: +ASPI1TAB PO; +CILO100T PO; +FLUR30CA12 PO; +MAG400TA PO; +MELA3TAB49 PO; +METF-877 PO; +MIRA3350 PO; +OMEP40CA2 PO; +OXYB5TAB10 PO; +PROP10TA56 PO; +SIMV40TA2 PO; +TRAM50TA2 PO
--- NOTE | 2019-01-23 01:13 | ECWPNPC ---
PATIENT NAME: AMI FERNANDEZ : 1955 GENDER: FEMALE VISIT DATE: 01/08/2019 DISCHARGE DATE: 01/08/19 1237 VISIT LOCKED DATE TIME: PHYSICIAN: ROXANNE TREADWELL RESOURCE: ROXANNE TREADWELL REASON FOR APPOINTMENT 1. HAND/THUMB HISTORY OF PRESENT ILLNESS HISTORY OF PRESENT ILLNESS: HERE FOR F/U AND MANAGEMENT OF CHRONIC LEFT ANTERIOR CHEST AND LEFT ARM PAIN.HAD PATIENT IS DOING WELL .HISTORY OF LEFT ARM PAIN SINCE VASCULAR SURGERY LEFT ARM 2003.RATING PAIN VAS 3/10.CURRENTLY USING TRAMADOL 50MG Q6H PRN.SINCE SHE STOPPED GABAPENTIN SHE IS HAVING MORE PARATHESIAS IN FINGER ON LEFT HAND.HAS BEEN HOSPITALIZED FOR PANCREATITIS AND CONSTIPATION.DISCUSSED MEDICATION OPTIONS. PAIN THE PATIENT DESCRIBES THE PAIN... THE PATIENT DESCRIBES THE PAIN... THE PATIENT DESCRIBES THE PAIN... THE PATIENT DESCRIBES THE PAIN... THE PATIENT DESCRIBES THE PAIN... THE PATIENT DESCRIBES THE PAIN... THE PATIENT DESCRIBES THE PAIN... THE PATIENT DESCRIBES THE PAIN... FALL RISK SCREENING: SCREENING : NO FALLS IN THE PAST YEAR. CURRENT MEDICATIONS TAKING FLURAZEPAM HCL 30 MG CAPSULE 1 CAPSULE AT BEDTIME ORALLY ONCE A DAY TAKING OMEPRAZOLE 20MG 40 MG TABLET 1 TAB(S) ORAL DAILY TAKING METFORMIN HCL 1000 MG TABLET 1 TAB ORALLY TWICE A DAY TAKING OXYBUTYNIN CHLORIDE 5 MG TABLET 1 TAB(S) ORALLY DAILY TAKING PROPRANOLOL HCL 10 MG TABLET 2 ORALLY TWICE A DAY TAKING ASPIRIN ADULT LOW DOSE 81 MG TABLET DELAYED RELEASE 1 TABLET ORALLY ONCE A DAY TAKING DOC-Q-LACE 100 MG CAPSULE 6 CAPSULE NEEDED ORALLY ONCE A DAY TAKING MAGNESIUM 400 CAPSULE 1 ORALLY ONCE A DAY TAKING CILOSTAZOL 100 MG TABLET 1 TAB(S) ORALLY TWICE DAILY TAKING MIRALAX - PACKET 1 PACKET MIXED WITH 8 OUNCES OF FLUID ORALLY ONCE A DAY NEEDED TAKING TRAMADOL HCL 50 MG TABLET 1 CAP ORALLY Q6H QID MDD4 TAKING MELATON-5 [id number]-MG - CAPSULE ORALLY NOT-TAKING GABAPENTIN 300 MG CAPSULE 1 CAPSULE ORALLY BID NOT-TAKING GABAPENTIN 300 MG CAPSULE 2 CAPSULE ORALLY BID NOT-TAKING SIMVASTATIN 40 40MG TABLET 1 TAB(S) ORAL DAILY NOT-TAKING SPIRONOLACTONE 25 MG TABLET 1 TABLET ORALLY ONCE A DAY NOT-TAKING TRAZODONE 50 50MG TABLET 1 TAB(S) ORAL DAILY NOT-TAKING TRADJENTA 5 MG TABLET 1 TABLET ORALLY ONCE A DAY NOT-TAKING MULTIVITAMIN ADULT - TABLET 1 TAB ORALLY DAILY NOT-TAKING IRON 1 TAB ORAL DAILY NOT-TAKING HYDROXYZINE HCL 25 MG TABLET 2 TABS ORALLY AT BEDTIME NOT-TAKING TRAMADOL HCL 50 MG TABLET 2 ORALLY EVERY 68HRS PRN MDD6 NOT-TAKING TESSALON PERLES 300 MG CAPSULE 1 CAPSULE ORALLY NEEDED NOT-TAKING FOLIC ACID XTRA 1 TABLET 1 TAB(S) ORALLY DAILY NOT-TAKING FOLIC ACID 1 MG TABLET 1 TABLET ORALLY ONCE A DAY NOT-TAKING TRAMADOL HCL 50 MG TABLETS 2 TABLET ORALLY 2TAB Q8H PRN MDD 6 NOT-TAKING DEXILANT 60 MG CAPSULE DELAYED RELEASE 1 CAPSULE ORALLY ONCE A DAY NOT-TAKING AMITIZA 24 MCG CAPSULE 1 CAPSULE WITH FOOD ORALLY THREE TIMES A DAY NOT-TAKING ALPRAZOLAM 0.25 MG TABLET 1 TABLET ORALLY BID PRN MEDICATION LIST REVIEWED AND RECONCILED WITH THE PATIENT PAST MEDICAL HISTORY CUTANEOUS MYCOSIS FUNGOIDES HISTORY OF H PYROI FOLLOWING IN [place] FOR A 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 AND POSSIBLE REMOVAL SPINAL CORD STIMULATOR FOR NERVE DAMAGE NIDDM HIGH CHOLESTEROL HYPERTENSION PANCREATITIS COPD ALLERGIES VICODIN: ITCHING - ALLERGY PAXIL: HIVES - ALLERGY CYMBALTA: SEVERE ITCHING - ALLERGY SURGICAL HISTORY MULTIPLE VASCULAR SURGERIES 17 SURGERIES SINCE 2004 CHOLECYSTECTOMY FAMILY HISTORY FATHER: HEART DISEASE SIBLINGS: BROTHERS HEART DISEASE SOCIAL HISTORY GENERAL: TOBACCO USE ARE YOU A:CURRENT SMOKER ARE YOU INTERESTED IN QUITTING?READY TO QUIT USING NICOTINE GUM, HAS CUT BACK. COUNSELED THE PATIENT ON TOBACCO USE, CESSATION [id number]/10/2018 HOW MANY CIGARETTES A DAY DO YOU SMOKE?6-10 PATIENT COUNSELED ON THE DANGERS OF TOBACCO USE AND URGED TO QUIT:01/08/2019 RECREATIONAL DRUG USE DRUG USE?NO CAFFEINE CAFFEINE USE?YES HOW OFTEN AND HOW MUCH? 1-2 DAILY EPISCOPAL [id number] [employer]U LANGUAGE LANGUAGES SPOKEN:ST HELENIAN LEARNING BARRIERS / SPECIAL NEEDS ABILITY TO UNDERSTAND VERBAL INSTRUCTIONS AVERAGE , ABILITY TO UNDERSTAND WRITTEN INSTRUCTIONS AVERAGE , KNOWLEDGE OF EDUCATIONAL NEEDS/TREATMENT PLAN AVERAGE , LEARNING PREFERENCE NO PREFERENCE , ORIENTED TO PLAN OF CARE: PATIENT , PAIN MANAGEMENT PATIENT , TEACHING MATERIALS DEMONSTRATION/VERBAL INSTRUCTION , RESPONSE TO EDUCATION EXPLAINES ACCURATELY/VERBALIZES UNDERSTANDING , TEACHING MATERIALS DEMONSTRATION/VERBAL INSTRUCTION , RESPONSE TO EDUCATION EXPLAINS ACCURATELY/VERBALIZES UNDERSTANDING . DIET: REGULAR. PAIN CLINIC PFS, CLERGY, PUBLIC HEALTH REFERRALS WAS THE PROVIDER NOTIFIED OF ANY PERTINENT INFO?YES HAS THE PATIENT BEEN EDUCATED REGARDING HIS/HER PLAN OF CARE?YES HAS THE PATIENT BEEN EDUCATED REGARDING PAIN, THE RISK FOR PAIN, THE IMPORTANCE OF EFFECTIVE PAIN MANAGEMENT, AND THE PAIN ASSESSMENT PROCESS?YES ADVANCE DIRECTIVE ADVANCE DIRECTIVE DISCUSSED WITH PATIENT:YES HCP INFORMATION GIVEN TO PATIENT REVIEWED WITH PATIENT 08/08/18 Delmi ARNOLD. HOSPITALIZATION/MAJOR DIAGNOSTIC PROCEDURE DEHYDRATION, INNER EAR INFECTION 02/2018 PANCREATITIS 05/30-06/04 CONSTIPATION 05/2018 REVIEW OF SYSTEMS REVIEWED BY: PROVIDER: ROXANNE QUINTERO . CONSTITUTIONAL: ANY CHANGE IN YOUR MEDICAL CONDITION? NO . CHILLS NO . FEVER NO . INFECTION: DO YOU HAVE NEW INFECTIONS? NO . DO YOU HAVE HISTORY OF MRSA? NO . MUSCULOSKELETAL: ANY NEW PATTERNS OF PAIN OR NUMBNESS? NO . GASTROENTEROLOGY: ANY NEW CHANGE IN BOWEL CONTROL? NO . GENITOURINARY: ANY NEW CHANGE IN BLADDER CONTROL? NO . IS THERE A CHANCE YOU COULD BE ? NO . HEMATOLOGY/LYMPH: DO YOU TAKE ANY BLOOD THINNERS? (FOR EXAMPLE- COUMADIN, PLAVIX, AGGRENOX, PLATEL, PRADAXA, OR XARELTO) NO . WHEN WAS YOUR LAST DOSE? DATE: TIME: . NEUROLOGY: HAVE YOU FALLEN IN THE PAST 12 MONTHS? NO . ANY NEW EXTREMITY NUMBNESS OR WEAKNESS? NO . CARDIOLOGY: DO YOU HAVE A PACEMAKER OR DEFIBRILLATOR? NO . RESPIRATORY: HAVE YOU BEEN SICK IN THE PAST WEEK? NO . FEVER NO . FLU LIKE SYMPTOMS? NO . COUGH NO . INTEGUMENTARY: DO YOU HAVE ANY RASHES OR OPEN SORES? NO . ALLERGIC/IMMUNO: ARE YOU ALLERGIC TO IV DYE? NO . ANY NEW ALLERGIES? NO . PSYCHIATRIC: DO YOU HAVE THOUGHTS OF HURTING YOURSELF OR SOMEONE ELSE? NO . ARE YOU ABUSED, NEGLECTED, OR IN AN UNSAFE ENVIRONMENT? NO . ENDOCRINOLOGY: ARE YOU DIABETIC? YES . OTHER: DO YOU NEED ANY PRESCRIPTIONS? NO . IF YES, PLEASE LIST: ____ . ANY NEW PROBLEMS WITH YOUR MEDICATIONS? NO . WHEN DID YOU LAST EAT? ____ . WHEN DID YOU LAST DRINK? ____ . WHAT DID YOU LAST DRINK? ____ . NAME OF PERSON DRIVING YOU HOME? ____ . DO YOU HAVE ANY OTHER QUESTIONS OR CONCERNS NO . VITAL SIGNS WT 123.4 LBS, HT 63 IN, BMI 21.86 INDEX, BP 130/67 MM HG, HR 92 /MIN, RR 18 /MIN, TEMP 97.7 F, OXYGEN SAT % 96%, NA INITIALS AW 1149, REVIEWED BY: KG. EXAMINATION GENERAL EXAMINATION: GENERAL APPEARANCE:COMFORTABLE. PSYCHAFFECT NORMAL. NECK:TRACHEA MIDLINE. NO CERVICAL OR SUPRACLAVICULAR LYMPHADENOPATHY NOTED. LUNGS:LUNG RAUSCH ARE CLEAR TO AUSCULTATION BILATERALLY. GOOD MOVEMENT OF AIR. HEART:S1, S2 IN A REGULAR RATE AND RHYTHM. NO SIGNIFICANT MURMURS, RUBS OR GALLOPS NOTED. 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 - G90.512 (PRIMARY) TREATMENT COMPLEX REGIONAL PAIN SYNDROME TYPE 1 OF LEFT UPPER EXTREMITY REFILL TRAMADOL HCL TABLET, 50 MG, 1 CAP, ORALLY, Q6H QID MDD4, 30 DAY(S), 120, REFILLS 2 START GABAPENTIN CAPSULE, 300 MG, 1 CAPSULE, ORALLY, BID, 30 DAY(S), 60 CAPSULE, REFILLS 5 NOTES: [facility] NARCOTIC AGREEMENT WAS REVIEWED AND SIGNED , ISTOP REGISTRY REVIEWED AND DEMONSTRATES COMPLLIANCE. BRINGS IN MEDICATIONS WHICH IS APPROPRIATE FOR WHAT WAS DISPENSED. RECENT URINE TOXICOLOGY REVIEWED. NO UNAUTHORIZED MEDICATIONS. NO ILLICIT SUBSTANCES AND PRESCRIBED MEDICATIONS WERE PRESENT. . PROCEDURE CODES FA211 ESTABILISHED PATIENT [facility] FACILITY CHARGE DISPOSITION & COMMUNICATION FOLLOW UP 2 MONTHS (REASON: MED MGMT) ELECTRONICALLY SIGNED BY LEON GAXIOLA ON 01/21/2019 AT 04:56 PM EDT DISCLAIMER : THIS IS A VISIT SUMMARY EXTRACTED FROM THE [facility] CHART. IT IS NOT A COPY OF THE [facility] PROGRESS NOTE. MTDD
== END ==
LOC: M PAIN 11:15
PROVIDERS: ATTEND Nurse Practitioner Family
DX: G90.512 Complex regional pain syndrome I of left upper limb (principal); C84.00 Mycosis fungoides, unspecified site; E11.9 Type 2 diabetes mellitus without complications; E78.00 Pure hypercholesterolemia, unspecified; I10 Essential (primary) hypertension; J44.9 Chronic obstructive pulmonary disease, unspecified; F17.210 Nicotine dependence, cigarettes, uncomplicated; Z79.82 Long term (current) use of aspirin; Z79.891 Long term (current) use of opiate analgesic; Z79.899 Other long term (current) drug therapy; Z79.84 Long term (current) use of oral hypoglycemic drugs; Z88.5 Allergy status to narcotic agent; Z88.8 Allergy status to other drugs, medicaments and biological substances

== ENCOUNTER → 2019-03-08 | Outpatient (CLI) | payer MEDICARE, BC ==
[~2019-03-08] MED LIST changes: -/ACETCOD3T PO; -/PREG100CA PO; +ACET1TAB16 PO; -ASPI1TAB PO; +ASPI81TA26 PO; +LYRI100C PO
--- NOTE | 2019-03-30 01:50 | ECWPNPC ---
PATIENT NAME: AMI FERNANDEZ : 1955 GENDER: FEMALE VISIT DATE: 03/08/2019 DISCHARGE DATE: 03/08/19 1017 VISIT LOCKED DATE TIME: PHYSICIAN: ROXANNE TREADWELL RESOURCE: ROXANNE TREADWELL REASON FOR APPOINTMENT 1. MED MGMT HISTORY OF PRESENT ILLNESS HISTORY OF PRESENT ILLNESS: HERE FOR F/U AND MANAGEMENT OF CHRONIC LEFT ANTERIOR CHEST AND LEFT ARM PAIN. PATIENT IS DOING WELL .HISTORY OF LEFT ARM PAIN SINCE VASCULAR SURGERY LEFT ARM 2003.RATING PAIN VAS 2/10.CURRENTLY USING TRAMADOL 50MG Q6H PRN.SINCE RESTARTING GABAPENTIN A FEW MONTHS AGO PARATHESIAS IN FINGER ON LEFT HAND HAVE RESOLVED. PAIN THE PATIENT DESCRIBES THE PAIN... THE PATIENT DESCRIBES THE PAIN... THE PATIENT DESCRIBES THE PAIN... THE PATIENT DESCRIBES THE PAIN... THE PATIENT DESCRIBES THE PAIN... THE PATIENT DESCRIBES THE PAIN... THE PATIENT DESCRIBES THE PAIN... THE PATIENT DESCRIBES THE PAIN... THE PATIENT DESCRIBES THE PAIN... FALL RISK SCREENING: SCREENING :NO FALLS REPORTED IN THE LAST YEAR CURRENT MEDICATIONS TAKING FLURAZEPAM HCL 30 MG CAPSULE 1 CAPSULE AT BEDTIME ORALLY ONCE A DAY TAKING OMEPRAZOLE 20MG 40 MG TABLET 1 TAB(S) ORAL DAILY TAKING METFORMIN HCL 1000 MG TABLET 1 TAB ORALLY TWICE A DAY TAKING OXYBUTYNIN CHLORIDE 5 MG TABLET 1 TAB(S) ORALLY DAILY TAKING PROPRANOLOL HCL 10 MG TABLET 2 ORALLY TWICE A DAY TAKING ASPIRIN ADULT LOW DOSE 81 MG TABLET DELAYED RELEASE 1 TABLET ORALLY ONCE A DAY TAKING DOC-Q-LACE 100 MG CAPSULE 6 CAPSULE NEEDED ORALLY ONCE A DAY TAKING MAGNESIUM 400 CAPSULE 1 ORALLY ONCE A DAY TAKING CILOSTAZOL 100 MG TABLET 1 TAB(S) ORALLY TWICE DAILY TAKING MIRALAX - PACKET 1 PACKET MIXED WITH 8 OUNCES OF FLUID ORALLY ONCE A DAY NEEDED TAKING MELATON-5 [id number] - CAPSULE ORALLY TAKING TRAMADOL HCL 50 MG TABLET 1 CAP ORALLY Q6H QID MDD4 TAKING GABAPENTIN 300 MG CAPSULE 1 CAPSULE ORALLY BID NOT-TAKING GABAPENTIN 300 MG CAPSULE 2 CAPSULE ORALLY BID NOT-TAKING SIMVASTATIN 40 40MG TABLET 1 TAB(S) ORAL DAILY NOT-TAKING SPIRONOLACTONE 25 MG TABLET 1 TABLET ORALLY ONCE A DAY NOT-TAKING TRAZODONE 50 50MG TABLET 1 TAB(S) ORAL DAILY NOT-TAKING TRADJENTA 5 MG TABLET 1 TABLET ORALLY ONCE A DAY NOT-TAKING MULTIVITAMIN ADULT - TABLET 1 TAB ORALLY DAILY NOT-TAKING IRON 1 TAB ORAL DAILY NOT-TAKING HYDROXYZINE HCL 25 MG TABLET 2 TABS ORALLY AT BEDTIME NOT-TAKING TRAMADOL HCL 50 MG TABLET 2 ORALLY EVERY 68HRS PRN MDD6 NOT-TAKING TESSALON PERLES 300 MG CAPSULE 1 CAPSULE ORALLY NEEDED NOT-TAKING FOLIC ACID XTRA 1 TABLET 1 TAB(S) ORALLY DAILY NOT-TAKING FOLIC ACID 1 MG TABLET 1 TABLET ORALLY ONCE A DAY NOT-TAKING TRAMADOL HCL 50 MG TABLETS 2 TABLET ORALLY 2TAB Q8H PRN MDD 6 NOT-TAKING DEXILANT 60 MG CAPSULE DELAYED RELEASE 1 CAPSULE ORALLY ONCE A DAY NOT-TAKING AMITIZA 24 MCG CAPSULE 1 CAPSULE WITH FOOD ORALLY THREE TIMES A DAY NOT-TAKING ALPRAZOLAM 0.25 MG TABLET 1 TABLET ORALLY BID PRN MEDICATION LIST REVIEWED AND RECONCILED WITH THE PATIENT PAST MEDICAL HISTORY CUTANEOUS MYCOSIS FUNGOIDES HISTORY OF H PYROI FOLLOWING IN [place] FOR A 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 AND POSSIBLE REMOVAL SPINAL CORD STIMULATOR FOR NERVE DAMAGE NIDDM HIGH CHOLESTEROL HYPERTENSION PANCREATITIS COPD ALLERGIES VICODIN: ITCHING - ALLERGY PAXIL: HIVES - ALLERGY CYMBALTA: SEVERE ITCHING - ALLERGY SURGICAL HISTORY MULTIPLE VASCULAR SURGERIES CHOLECYSTECTOMY FAMILY HISTORY FATHER: HEART DISEASE SIBLINGS: BROTHERS HEART DISEASE SOCIAL HISTORY GENERAL: TOBACCO USE ARE YOU A:CURRENT SMOKER ARE YOU INTERESTED IN QUITTING?READY TO QUIT USING NICOTINE GUM, HAS CUT BACK. COUNSELED THE PATIENT ON TOBACCO USE, CESSATION [id number]/10/2019 HOW MANY CIGARETTES A DAY DO YOU SMOKE?6-10 PATIENT COUNSELED ON THE DANGERS OF TOBACCO USE AND URGED TO QUIT:01/08/2019 PAIN CLINIC PFS, CLERGY, PUBLIC HEALTH REFERRALS WAS THE PROVIDER NOTIFIED OF ANY PERTINENT INFO?YES HAS THE PATIENT BEEN EDUCATED REGARDING HIS/HER PLAN OF CARE?YES HAS THE PATIENT BEEN EDUCATED REGARDING PAIN, THE RISK FOR PAIN, THE IMPORTANCE OF EFFECTIVE PAIN MANAGEMENT, AND THE PAIN ASSESSMENT PROCESS?YES CAFFEINE CAFFEINE USE?YES HOW OFTEN AND HOW MUCH? 1-2 DAILY ADVANCE DIRECTIVE ADVANCE DIRECTIVE DISCUSSED WITH PATIENT:YES HCP INFORMATION GIVEN TO PATIENT DIET: REGULAR. PENTECOSTAL [id number] EPISCOPAL LANGUAGE LANGUAGES SPOKEN:ANGOLAN RECREATIONAL DRUG USE DRUG USE?NO LEARNING BARRIERS / SPECIAL NEEDS ABILITY TO UNDERSTAND VERBAL INSTRUCTIONS AVERAGE , ABILITY TO UNDERSTAND WRITTEN INSTRUCTIONS AVERAGE , KNOWLEDGE OF EDUCATIONAL NEEDS/TREATMENT PLAN AVERAGE , LEARNING PREFERENCE NO PREFERENCE , ORIENTED TO PLAN OF CARE: PATIENT , PAIN MANAGEMENT PATIENT , TEACHING MATERIALS DEMONSTRATION/VERBAL INSTRUCTION , RESPONSE TO EDUCATION EXPLAINES ACCURATELY/VERBALIZES UNDERSTANDING , TEACHING MATERIALS DEMONSTRATION/VERBAL INSTRUCTION , RESPONSE TO EDUCATION EXPLAINS ACCURATELY/VERBALIZES UNDERSTANDING. REVIEWED WITH PATIENT 08/08/18 Delmi JS. HOSPITALIZATION/MAJOR DIAGNOSTIC PROCEDURE DEHYDRATION, INNER EAR INFECTION 02/2018 PANCREATITIS 05/30-06/04 CONSTIPATION 05/2018 REVIEW OF SYSTEMS REVIEWED BY: PROVIDER: ROXANNE QUINTERO . CONSTITUTIONAL: ANY CHANGE IN YOUR MEDICAL CONDITION? NO . CHILLS NO . FEVER NO . INFECTION: DO YOU HAVE NEW INFECTIONS? NO . DO YOU HAVE HISTORY OF MRSA? NO . MUSCULOSKELETAL: ANY NEW PATTERNS OF PAIN OR NUMBNESS? YES, PAIN HAS IMPROVED W CANDI . GASTROENTEROLOGY: ANY NEW CHANGE IN BOWEL CONTROL? NO . GENITOURINARY: ANY NEW CHANGE IN BLADDER CONTROL? NO . IS THERE A CHANCE YOU COULD BE ? NO . HEMATOLOGY/LYMPH: DO YOU TAKE ANY BLOOD THINNERS? (FOR EXAMPLE- COUMADIN, PLAVIX, AGGRENOX, PLATEL, PRADAXA, OR XARELTO) NO . WHEN WAS YOUR LAST DOSE? DATE: TIME: . NEUROLOGY: HAVE YOU FALLEN IN THE PAST 12 MONTHS? NO . ANY NEW EXTREMITY NUMBNESS OR WEAKNESS? NO . CARDIOLOGY: DO YOU HAVE A PACEMAKER OR DEFIBRILLATOR? NO . RESPIRATORY: HAVE YOU BEEN SICK IN THE PAST WEEK? NO . FEVER NO . FLU LIKE SYMPTOMS? NO . COUGH NO . INTEGUMENTARY: DO YOU HAVE ANY RASHES OR OPEN SORES? NO . ALLERGIC/IMMUNO: ARE YOU ALLERGIC TO IV DYE? NO . ANY NEW ALLERGIES? NO . PSYCHIATRIC: DO YOU HAVE THOUGHTS OF HURTING YOURSELF OR SOMEONE ELSE? NO . ARE YOU ABUSED, NEGLECTED, OR IN AN UNSAFE ENVIRONMENT? NO . ENDOCRINOLOGY: ARE YOU DIABETIC? YES . OTHER: DO YOU NEED ANY PRESCRIPTIONS? YES, CANDI AND TRAMADOL . IF YES, PLEASE LIST: ____ . ANY NEW PROBLEMS WITH YOUR MEDICATIONS? NO . WHEN DID YOU LAST EAT? ____ . WHEN DID YOU LAST DRINK? ____ . WHAT DID YOU LAST DRINK? ____ . NAME OF PERSON DRIVING YOU HOME? ____ . DO YOU HAVE ANY OTHER QUESTIONS OR CONCERNS NO . VITAL SIGNS WT 121.6 LBS, HT 63 IN, BMI 21.54 INDEX, BP 140/65 MM HG, HR 90 /MIN, RR 18 /MIN, TEMP 97.3 F, OXYGEN SAT % 91%, NA INITIALS SC 09:41, REVIEWED BY: EM. EXAMINATION GENERAL EXAMINATION: GENERAL APPEARANCE:COMFORTABLE. PSYCHAFFECT NORMAL. NECK:TRACHEA MIDLINE. NO CERVICAL OR SUPRACLAVICULAR LYMPHADENOPATHY NOTED. LUNGS:LUNG RAUSCH ARE CLEAR TO AUSCULTATION BILATERALLY. GOOD MOVEMENT OF AIR. HEART:S1, S2 IN A REGULAR RATE AND RHYTHM. NO SIGNIFICANT MURMURS, RUBS OR GALLOPS NOTED. 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 - G90.512 (PRIMARY) TREATMENT COMPLEX REGIONAL PAIN SYNDROME TYPE 1 OF LEFT UPPER EXTREMITY CONTINUE TRAMADOL HCL TABLET, 50 MG, 1 CAP, ORALLY, Q6H QID MDD4 CONTINUE GABAPENTIN CAPSULE, 300 MG, 1 CAPSULE, ORALLY, BID NOTES: ISTOP REGISTRY REVIEWED AND DEMONSTRATES COMPLLIANCE. BRINGS IN MEDICATIONS WHICH IS APPROPRIATE FOR WHAT WAS DISPENSED. RECENT URINE TOXICOLOGY REVIEWED. NO UNAUTHORIZED MEDICATIONS. NO ILLICIT SUBSTANCES AND PRESCRIBED MEDICATIONS WERE PRESENT. , RISKS AND BENEFITS OF NARCOTIC/OPIOD MEDICATIONS WERE REVIEWED WITH PATIENT - THIS INCLUDES BUT IS NOT LIMITED TO RISK OF DEPENDANCE/DEVELOPMENT OF ADDICTION, MOOD DISTURBANCE AND DEPRESSION, OSTEOPOROSIS, HORMONAL AND LABIDAL CHANGES, RESPIRATORY DEPRESSION AND . PATIENT IS ADVISED NOT TO DRIVE OR DRINK ALCOHOL WHILE ON THESE MEDICATIONS. PROCEDURE CODES FA211 ESTABILISHED PATIENT [facility] CHARGE DISPOSITION & COMMUNICATION FOLLOW UP 3 MONTHS (REASON: MED MGMT) ELECTRONICALLY SIGNED BY LEON GAXIOLA ON 03/27/2019 AT 04:43 PM EDT DISCLAIMER : THIS IS A VISIT SUMMARY EXTRACTED FROM THE [employer] CHART. IT IS NOT A COPY OF THE [employer] PROGRESS NOTE. MTDD
== END ==
LOC: M PAIN 10:00
PROVIDERS: ATTEND Nurse Practitioner Family
DX: G90.512 Complex regional pain syndrome I of left upper limb (principal); G89.29 Other chronic pain; Z86.19 Personal history of other infectious and parasitic diseases; E11.9 Type 2 diabetes mellitus without complications; E78.00 Pure hypercholesterolemia, unspecified; I10 Essential (primary) hypertension; J44.9 Chronic obstructive pulmonary disease, unspecified; F17.210 Nicotine dependence, cigarettes, uncomplicated; Z88.5 Allergy status to narcotic agent; Z88.8 Allergy status to other drugs, medicaments and biological substances; Z79.84 Long term (current) use of oral hypoglycemic drugs; Z79.82 Long term (current) use of aspirin; Z79.891 Long term (current) use of opiate analgesic; Z79.899 Other long term (current) drug therapy

== ENCOUNTER → 2019-06-10 | Outpatient (CLI) | payer MEDICARE, BC ==
--- NOTE | 2019-06-27 00:29 | ECWPNPC ---
PATIENT NAME: AMI FERNANDEZ : 1955 GENDER: FEMALE VISIT DATE: 06/10/2019 DISCHARGE DATE: 06/10/19 1037 VISIT LOCKED DATE TIME: PHYSICIAN: ROXANNE TREADWELL RESOURCE: ROXANNE TREADWELL REASON FOR APPOINTMENT 1. MED MGMT HISTORY OF PRESENT ILLNESS HISTORY OF PRESENT ILLNESS: HERE FOR F/U AND MANAGEMENT OF CHRONIC LEFT ANTERIOR CHEST AND LEFT ARM PAIN. PATIENT IS DOING WELL .HISTORY OF LEFT ARM PAIN SINCE VASCULAR SURGERY LEFT ARM 2003.RATING PAIN VAS 2/10.CURRENTLY USING TRAMADOL 50MG Q6H PRN.SINCE RESTARTING GABAPENTIN A FEW MONTHS AGO PARATHESIAS IN FINGER ON LEFT HAND HAVE RESOLVED. PAIN THE PATIENT DESCRIBES THE PAIN... THE PATIENT DESCRIBES THE PAIN... THE PATIENT DESCRIBES THE PAIN... THE PATIENT DESCRIBES THE PAIN... THE PATIENT DESCRIBES THE PAIN... THE PATIENT DESCRIBES THE PAIN... THE PATIENT DESCRIBES THE PAIN... THE PATIENT DESCRIBES THE PAIN... THE PATIENT DESCRIBES THE PAIN... THE PATIENT DESCRIBES THE PAIN... PAIN THE PATIENT DESCRIBES THE PAIN... THE PATIENT DESCRIBES THE PAIN... THE PATIENT DESCRIBES THE PAIN... THE PATIENT DESCRIBES THE PAIN... THE PATIENT DESCRIBES THE PAIN... THE PATIENT DESCRIBES THE PAIN... THE PATIENT DESCRIBES THE PAIN... THE PATIENT DESCRIBES THE PAIN... THE PATIENT DESCRIBES THE PAIN... THE PATIENT DESCRIBES THE PAIN... FALL RISK SCREENING: SCREENING :NO FALLS REPORTED IN THE LAST YEAR CURRENT MEDICATIONS TAKING OMEPRAZOLE 20MG 40 MG TABLET 1 TAB(S) ORAL DAILY TAKING METFORMIN HCL 1000 MG TABLET 1 TAB ORALLY TWICE A DAY TAKING OXYBUTYNIN CHLORIDE 5 MG TABLET 1 TAB(S) ORALLY DAILY TAKING PROPRANOLOL HCL 10 MG TABLET 2 ORALLY TWICE A DAY TAKING ASPIRIN ADULT LOW DOSE 81 MG TABLET DELAYED RELEASE 1 TABLET ORALLY ONCE A DAY TAKING DOC-Q-LACE 100 MG CAPSULE 6 CAPSULE NEEDED ORALLY ONCE A DAY TAKING MAGNESIUM 400 CAPSULE 1 ORALLY ONCE A DAY TAKING CILOSTAZOL 100 MG TABLET 1 TAB(S) ORALLY TWICE DAILY TAKING MIRALAX - PACKET 1 PACKET MIXED WITH 8 OUNCES OF FLUID ORALLY ONCE A DAY NEEDED TAKING MELATON-5 [id number]-MG - CAPSULE ORALLY TAKING GABAPENTIN 300 MG CAPSULE 1 CAPSULE ORALLY BID TAKING TRAMADOL HCL 50 MG TABLET 1 CAP ORALLY Q6H QID MDD4 TAKING ZOLPIDEM TARTRATE 5 MG TABLET 1 TABLET AT BEDTIME ORALLY ONCE A DAY TAKING JANUVIA 50 MG TABLET DIRECTED ORALLY NOT-TAKING FLURAZEPAM HCL 30 MG CAPSULE 1 CAPSULE AT BEDTIME ORALLY ONCE A DAY NOT-TAKING GABAPENTIN 300 MG CAPSULE 2 CAPSULE ORALLY BID NOT-TAKING SIMVASTATIN 40 40MG TABLET 1 TAB(S) ORAL DAILY NOT-TAKING SPIRONOLACTONE 25 MG TABLET 1 TABLET ORALLY ONCE A DAY NOT-TAKING TRAZODONE 50 50MG TABLET 1 TAB(S) ORAL DAILY NOT-TAKING TRADJENTA 5 MG TABLET 1 TABLET ORALLY ONCE A DAY NOT-TAKING MULTIVITAMIN ADULT - TABLET 1 TAB ORALLY DAILY NOT-TAKING IRON 1 TAB ORAL DAILY NOT-TAKING HYDROXYZINE HCL 25 MG TABLET 2 TABS ORALLY AT BEDTIME NOT-TAKING TRAMADOL HCL 50 MG TABLET 2 ORALLY EVERY 68HRS PRN MDD6 NOT-TAKING TESSALON PERLES 300 MG CAPSULE 1 CAPSULE ORALLY NEEDED NOT-TAKING FOLIC ACID XTRA 1 TABLET 1 TAB(S) ORALLY DAILY NOT-TAKING FOLIC ACID 1 MG TABLET 1 TABLET ORALLY ONCE A DAY NOT-TAKING TRAMADOL HCL 50 MG TABLETS 2 TABLET ORALLY 2TAB Q8H PRN MDD 6 NOT-TAKING DEXILANT 60 MG CAPSULE DELAYED RELEASE 1 CAPSULE ORALLY ONCE A DAY NOT-TAKING AMITIZA 24 MCG CAPSULE 1 CAPSULE WITH FOOD ORALLY THREE TIMES A DAY NOT-TAKING ALPRAZOLAM 0.25 MG TABLET 1 TABLET ORALLY BID PRN MEDICATION LIST REVIEWED AND RECONCILED WITH THE PATIENT PAST MEDICAL HISTORY CUTANEOUS MYCOSIS FUNGOIDES 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 AND POSSIBLE REMOVAL SPINAL CORD STIMULATOR FOR NERVE DAMAGE NIDDM HIGH CHOLESTEROL HYPERTENSION PANCREATITIS COPD ALLERGIES VICODIN: ITCHING - ALLERGY PAXIL: HIVES - ALLERGY CYMBALTA: SEVERE ITCHING - ALLERGY SURGICAL HISTORY MULTIPLE VASCULAR SURGERIES CHOLECYSTECTOMY FAMILY HISTORY FATHER: HEART DISEASE SIBLINGS: BROTHERS HEART DISEASE SOCIAL HISTORY GENERAL: TOBACCO USE ARE YOU A:CURRENT SMOKER ARE YOU INTERESTED IN QUITTING?READY TO QUIT USING NICOTINE GUM, HAS CUT BACK. COUNSELED THE PATIENT ON TOBACCO USE, CESSATION [id number]/10/2019 HOW MANY CIGARETTES A DAY DO YOU SMOKE?6-10 PATIENT COUNSELED ON THE DANGERS OF TOBACCO USE AND URGED TO QUIT:06/10/2019 PAIN CLINIC PFS, CLERGY, PUBLIC HEALTH REFERRALS WAS THE PROVIDER NOTIFIED OF ANY PERTINENT INFO?YES HAS THE PATIENT BEEN EDUCATED REGARDING HIS/HER PLAN OF CARE?YES HAS THE PATIENT BEEN EDUCATED REGARDING PAIN, THE RISK FOR PAIN, THE IMPORTANCE OF EFFECTIVE PAIN MANAGEMENT, AND THE PAIN ASSESSMENT PROCESS?YES LATEX QUESTIONNAIRE LATEX ALLERGY : HAVE YOU EVER DEVELOPED ANY TYPE OF REACTION AFTER HANDLING LATEX PRODUCTS SUCH RUBBER GLOVES, CONDOMS, DIAPHRAGMS, BALLOONS, SOCKS, OR UNDERWEAR?NO LATEX ALLERGY : HAVE YOU EVER DEVELOPED ANY TYPE OF REACTION DURING OR AFTER DENTAL APPOINTMENT, VAGINAL/RECTAL EXAMINATION, SURGICAL PROCEDURE, OR ANY OTHER EXPOSURE?NO LATEX RISK : HAVE YOU EVER HAD ANY DIFFICULTY BREATHING OR HIVES AFTER EATING OR HANDLING ANY FRUITS, OR VEGETABLES; SUCH KIWI, BANANAS, STONE FRUITS, OR CHESTNUTSNO LATEX RISK : DO YOU HAVE A PREVIOUS PERSONAL HISTORY OF MORE THAN NINE SURGERIES, SPINA BIFIDA, OR REPEATED CATHERIZATIONS? NO LATEX RISK : ARE YOU FREQUENTLY EXPOSED TO LATEX PRODUCTS IN YOUR OCCUPATION?NO DATE ASKED : 06/10/2019 CAFFEINE CAFFEINE USE?YES HOW OFTEN AND HOW MUCH? 1-2 DAILY ADVANCE DIRECTIVE ADVANCE DIRECTIVE DISCUSSED WITH PATIENT:YES HCP INFORMATION GIVEN TO PATIENT DIET: REGULAR. [employer] [id number] SY[place]GUE LANGUAGE LANGUAGES SPOKEN:FAROESE RECREATIONAL DRUG USE DRUG USE?NO LEARNING BARRIERS / SPECIAL NEEDS ABILITY TO UNDERSTAND VERBAL INSTRUCTIONS AVERAGE , ABILITY TO UNDERSTAND WRITTEN INSTRUCTIONS AVERAGE , KNOWLEDGE OF EDUCATIONAL NEEDS/TREATMENT PLAN AVERAGE , LEARNING PREFERENCE NO PREFERENCE , ORIENTED TO PLAN OF CARE: PATIENT , PAIN MANAGEMENT PATIENT , TEACHING MATERIALS DEMONSTRATION/VERBAL INSTRUCTION , RESPONSE TO EDUCATION EXPLAINES ACCURATELY/VERBALIZES UNDERSTANDING , TEACHING MATERIALS DEMONSTRATION/VERBAL INSTRUCTION , RESPONSE TO EDUCATION EXPLAINS ACCURATELY/VERBALIZES UNDERSTANDING. REVIEWED WITH PATIENT 08/08/18 [facility] JS. HOSPITALIZATION/MAJOR DIAGNOSTIC PROCEDURE DEHYDRATION, INNER EAR INFECTION 02/2018 PANCREATITIS 05/30-06/04 CONSTIPATION 05/2018 REVIEW OF SYSTEMS REVIEWED BY: PROVIDER: ROXANNE QUINTERO . CONSTITUTIONAL: ANY CHANGE IN YOUR MEDICAL CONDITION? NO . CHILLS NO . FEVER NO . INFECTION: DO YOU HAVE NEW INFECTIONS? NO . DO YOU HAVE HISTORY OF MRSA? NO . MUSCULOSKELETAL: ANY NEW PATTERNS OF PAIN OR NUMBNESS? NO . GASTROENTEROLOGY: ANY NEW CHANGE IN BOWEL CONTROL? NO . GENITOURINARY: ANY NEW CHANGE IN BLADDER CONTROL? NO . IS THERE A CHANCE YOU COULD BE ? NO . HEMATOLOGY/LYMPH: DO YOU TAKE ANY BLOOD THINNERS? (FOR EXAMPLE- COUMADIN, PLAVIX, AGGRENOX, PLATEL, PRADAXA, OR XARELTO) NO . WHEN WAS YOUR LAST DOSE? DATE: TIME: . NEUROLOGY: HAVE YOU FALLEN IN THE PAST 12 MONTHS? YES, PT STATES THAT SHE WAS OUT IN THE YARD, TRIPPED, NO INJURY, NO REPORT TO ED . ANY NEW EXTREMITY NUMBNESS OR WEAKNESS? NO . CARDIOLOGY: DO YOU HAVE A PACEMAKER OR DEFIBRILLATOR? NO . RESPIRATORY: HAVE YOU BEEN SICK IN THE PAST WEEK? NO . FEVER NO . FLU LIKE SYMPTOMS? NO . COUGH NO . INTEGUMENTARY: DO YOU HAVE ANY RASHES OR OPEN SORES? NO . ALLERGIC/IMMUNO: ARE YOU ALLERGIC TO IV DYE? NO . ANY NEW ALLERGIES? NO . PSYCHIATRIC: DO YOU HAVE THOUGHTS OF HURTING YOURSELF OR SOMEONE ELSE? NO . ARE YOU ABUSED, NEGLECTED, OR IN AN UNSAFE ENVIRONMENT? NO . ENDOCRINOLOGY: ARE YOU DIABETIC? YES, FSBS 128 . OTHER: DO YOU NEED ANY PRESCRIPTIONS? NO . IF YES, PLEASE LIST: ____ . ANY NEW PROBLEMS WITH YOUR MEDICATIONS? NO . WHEN DID YOU LAST EAT? ____ . WHEN DID YOU LAST DRINK? ____ . WHAT DID YOU LAST DRINK? ____ . NAME OF PERSON DRIVING YOU HOME? ____ . DO YOU HAVE ANY OTHER QUESTIONS OR CONCERNS NO . VITAL SIGNS WT 125.4 LBS, HT 63 IN, BMI 22.21 INDEX, BP 132/61 MM HG, HR 100 /MIN, RR 18 /MIN, TEMP 96.1 F, OXYGEN SAT % 91%, SAFE IN ENV? (Y/N) Y, NA INITIALS AW [id number], REVIEWED BY: MATTHEW. EXAMINATION GENERAL EXAMINATION: GENERALCOMFORTABLE. PSYCHAFFECT NORMAL. NECK:TRACHEA MIDLINE. NO CERVICAL OR SUPRACLAVICULAR LYMPHADENOPATHY NOTED. LUNGS:LUNG RAUSCH ARE CLEAR TO AUSCULTATION BILATERALLY. GOOD MOVEMENT OF AIR. HEART:S1, S2 IN A REGULAR RATE AND RHYTHM. NO SIGNIFICANT MURMURS, RUBS OR GALLOPS NOTED. 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 - G90.512 (PRIMARY) TREATMENT COMPLEX REGIONAL PAIN SYNDROME TYPE 1 OF LEFT UPPER EXTREMITY REFILL GABAPENTIN CAPSULE, 300 MG, 1 CAPSULE, ORALLY, BID, 30 DAYS, 60 CAPSULE, REFILLS 5 REFILL TRAMADOL HCL TABLET, 50 MG, 1 CAP, ORALLY, Q6H QID MDD4, 30 DAYS, 120, REFILLS 5 NOTES: ISTOP REGISTRY REVIEWED AND DEMONSTRATES COMPLLIANCE. , RISKS AND BENEFITS OF NARCOTIC/OPIOD MEDICATIONS WERE REVIEWED WITH PATIENT - THIS INCLUDES BUT IS NOT LIMITED TO RISK OF DEPENDANCE/DEVELOPMENT OF ADDICTION, MOOD DISTURBANCE AND DEPRESSION, OSTEOPOROSIS, HORMONAL AND LABIDAL CHANGES, RESPIRATORY DEPRESSION AND . PATIENT IS ADVISED NOT TO DRIVE OR DRINK ALCOHOL WHILE ON THESE MEDICATIONS. PROCEDURE CODES FA211 ESTABILISHED PATIENT [facility] CHARGE DISPOSITION & COMMUNICATION FOLLOW UP 3 MONTHS (REASON: MED MGMNT) ELECTRONICALLY SIGNED BY LEON GAXIOLA ON 06/26/2019 AT 09:40 AM EDT DISCLAIMER : THIS IS A VISIT SUMMARY EXTRACTED FROM THE [employer] CHART. IT IS NOT A COPY OF THE [employer] PROGRESS NOTE. RO
== END ==
LOC: M PAIN 09:45
PROVIDERS: ATTEND Nurse Practitioner Family
DX: G90.512 Complex regional pain syndrome I of left upper limb (principal); G89.29 Other chronic pain; E11.9 Type 2 diabetes mellitus without complications; E78.00 Pure hypercholesterolemia, unspecified; I10 Essential (primary) hypertension; J44.9 Chronic obstructive pulmonary disease, unspecified; F17.210 Nicotine dependence, cigarettes, uncomplicated; Z88.5 Allergy status to narcotic agent; Z88.8 Allergy status to other drugs, medicaments and biological substances; Z79.82 Long term (current) use of aspirin; Z79.84 Long term (current) use of oral hypoglycemic drugs; Z79.891 Long term (current) use of opiate analgesic; Z79.899 Other long term (current) drug therapy

== ENCOUNTER → 2019-09-30 | Outpatient (CLI) | payer MEDICARE, BC ==
[~2019-09-30] MED LIST changes: -OMEP40CA2 PO; +OMEP40CA97 PO; -SIMV40TA2 PO; +SIMV40TA20 PO
--- NOTE | 2019-10-01 02:52 | ECWPNPC ---
PATIENT NAME: AIM FERNANDEZ : 1955 GENDER: FEMALE VISIT DATE: 09/30/2019 DISCHARGE DATE: 09/30/19 1041 VISIT LOCKED DATE TIME: PHYSICIAN: ROXANNE TREADWELL RESOURCE: ROXANNE TREADWELL REASON FOR APPOINTMENT 1. MED MGMT HISTORY OF PRESENT ILLNESS HISTORY OF PRESENT ILLNESS: HERE FOR F/U AND MANAGEMENT OF CHRONIC LEFT ANTERIOR CHEST AND LEFT ARM PAIN. PATIENT IS DOING WELL .HISTORY OF LEFT ARM PAIN SINCE VASCULAR SURGERY LEFT ARM 2003.RATING PAIN VAS 2/10.CURRENTLY USING TRAMADOL 50MG Q6H PRN.SINCE RESTARTING GABAPENTIN A FEW MONTHS AGO PARATHESIAS IN FINGER ON LEFT HAND HAVE RESOLVED.FELL APPROXIMATLEY 3 WEEKS AGO AND IS SUFFERING FROM PERSISTENT LEFT LOW BACK /LOW THORACIC PAIN.WAS SEEN AT ER AT TIME OF INJURY AND IMAGING WAS DONE.PATIENT STATES QUESTIONABLE RIB FRACTURE.SHE WILL CONTACT DR PANTOJA FOR REFERRAL FOR THIS AREA OF PAIN IF NECESSARY. PAIN THE PATIENT DESCRIBES THE PAIN... FALL RISK SCREENING: SCREENING :NO FALLS REPORTED IN THE LAST YEAR CURRENT MEDICATIONS TAKING OMEPRAZOLE 20MG 40 MG TABLET 1 TAB(S) ORAL DAILY TAKING METFORMIN HCL 1000 MG TABLET 1 TAB ORALLY TWICE A DAY TAKING OXYBUTYNIN CHLORIDE 5 MG TABLET 1 TAB(S) ORALLY DAILY TAKING PROPRANOLOL HCL 10 MG TABLET 2 ORALLY TWICE A DAY TAKING ASPIRIN ADULT LOW DOSE 81 MG TABLET DELAYED RELEASE 1 TABLET ORALLY ONCE A DAY TAKING DOC-Q-LACE 100 MG CAPSULE 6 CAPSULE NEEDED ORALLY ONCE A DAY TAKING CILOSTAZOL 100 MG TABLET 1 TAB(S) ORALLY TWICE DAILY TAKING MIRALAX - PACKET 1 PACKET MIXED WITH 8 OUNCES OF FLUID ORALLY ONCE A DAY NEEDED TAKING MELATON-5 [id number]-MG - CAPSULE ORALLY TAKING ZOLPIDEM TARTRATE 5 MG TABLET 1 TABLET AT BEDTIME ORALLY ONCE A DAY TAKING GABAPENTIN 300 MG CAPSULE 1 CAPSULE ORALLY BID TAKING TRAMADOL HCL 50 MG TABLET 1 CAP ORALLY Q6H QID MDD4 NOT-TAKING FLURAZEPAM HCL 30 MG CAPSULE 1 CAPSULE AT BEDTIME ORALLY ONCE A DAY NOT-TAKING GABAPENTIN 300 MG CAPSULE 2 CAPSULE ORALLY BID NOT-TAKING SIMVASTATIN 40 40MG TABLET 1 TAB(S) ORAL DAILY NOT-TAKING SPIRONOLACTONE 25 MG TABLET 1 TABLET ORALLY ONCE A DAY NOT-TAKING TRAZODONE 50 50MG TABLET 1 TAB(S) ORAL DAILY NOT-TAKING TRADJENTA 5 MG TABLET 1 TABLET ORALLY ONCE A DAY NOT-TAKING MULTIVITAMIN ADULT - TABLET 1 TAB ORALLY DAILY NOT-TAKING IRON 1 TAB ORAL DAILY NOT-TAKING HYDROXYZINE HCL 25 MG TABLET 2 TABS ORALLY AT BEDTIME NOT-TAKING TRAMADOL HCL 50 MG TABLET 2 ORALLY EVERY 68HRS PRN MDD6 NOT-TAKING TESSALON PERLES 300 MG CAPSULE 1 CAPSULE ORALLY NEEDED NOT-TAKING FOLIC ACID XTRA 1 TABLET 1 TAB(S) ORALLY DAILY NOT-TAKING FOLIC ACID 1 MG TABLET 1 TABLET ORALLY ONCE A DAY NOT-TAKING TRAMADOL HCL 50 MG TABLETS 2 TABLET ORALLY 2TAB Q8H PRN MDD 6 NOT-TAKING DEXILANT 60 MG CAPSULE DELAYED RELEASE 1 CAPSULE ORALLY ONCE A DAY NOT-TAKING AMITIZA 24 MCG CAPSULE 1 CAPSULE WITH FOOD ORALLY THREE TIMES A DAY NOT-TAKING ALPRAZOLAM 0.25 MG TABLET 1 TABLET ORALLY BID PRN NOT-TAKING MAGNESIUM 400 CAPSULE 1 ORALLY ONCE A DAY NOT-TAKING JANUVIA 50 MG TABLET DIRECTED ORALLY MEDICATION LIST REVIEWED AND RECONCILED WITH THE PATIENT PAST MEDICAL HISTORY CUTANEOUS MYCOSIS FUNGOIDES HISTORY OF H PYROI FOLLOWING IN [place] FOR A 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 AND POSSIBLE REMOVAL SPINAL CORD STIMULATOR FOR NERVE DAMAGE NIDDM HIGH CHOLESTEROL HYPERTENSION PANCREATITIS COPD BROKEN RIBS ALLERGIES VICODIN: ITCHING - ALLERGY PAXIL: HIVES - ALLERGY CYMBALTA: SEVERE ITCHING - ALLERGY SURGICAL HISTORY MULTIPLE VASCULAR SURGERIES CHOLECYSTECTOMY FAMILY HISTORY FATHER: HEART DISEASE SIBLINGS: BROTHERS HEART DISEASE BROTHER - CANCER. SOCIAL HISTORY GENERAL: TOBACCO USE ARE YOU A:CURRENT SMOKER ARE YOU INTERESTED IN QUITTING?READY TO QUIT COUNSELED THE PATIENT ON TOBACCO USE, CESSATION [id number]/02/2019 HOW MANY CIGARETTES A DAY DO YOU SMOKE?6-10 PATIENT COUNSELED ON THE DANGERS OF TOBACCO USE AND URGED TO QUIT:09/30/2019 PAIN CLINIC PFS, CLERGY, PUBLIC HEALTH REFERRALS WAS THE PROVIDER NOTIFIED OF ANY PERTINENT INFO?YES HAS THE PATIENT BEEN EDUCATED REGARDING HIS/HER PLAN OF CARE?YES HAS THE PATIENT BEEN EDUCATED REGARDING PAIN, THE RISK FOR PAIN, THE IMPORTANCE OF EFFECTIVE PAIN MANAGEMENT, AND THE PAIN ASSESSMENT PROCESS?YES LATEX QUESTIONNAIRE LATEX ALLERGY : HAVE YOU EVER DEVELOPED ANY TYPE OF REACTION AFTER HANDLING LATEX PRODUCTS SUCH RUBBER GLOVES, CONDOMS, DIAPHRAGMS, BALLOONS, SOCKS, OR UNDERWEAR?NO LATEX ALLERGY : HAVE YOU EVER DEVELOPED ANY TYPE OF REACTION DURING OR AFTER DENTAL APPOINTMENT, VAGINAL/RECTAL EXAMINATION, SURGICAL PROCEDURE, OR ANY OTHER EXPOSURE?NO LATEX RISK : HAVE YOU EVER HAD ANY DIFFICULTY BREATHING OR HIVES AFTER EATING OR HANDLING ANY FRUITS, OR VEGETABLES; SUCH KIWI, BANANAS, STONE FRUITS, OR CHESTNUTSNO LATEX RISK : DO YOU HAVE A PREVIOUS PERSONAL HISTORY OF MORE THAN NINE SURGERIES, SPINA BIFIDA, OR REPEATED CATHERIZATIONS? NO LATEX RISK : ARE YOU FREQUENTLY EXPOSED TO LATEX PRODUCTS IN YOUR OCCUPATION?NO DATE ASKED : 06/10/2019 CAFFEINE CAFFEINE USE?YES HOW OFTEN AND HOW MUCH? 1-2 DAILY ADVANCE DIRECTIVE ADVANCE DIRECTIVE DISCUSSED WITH PATIENT:YES HCP INFORMATION GIVEN TO PATIENT AT THIS TIME, DECLINED ASSISTANCE IN FILLING OUT THE FORM. DIET: REGULAR. YARSANI [id number] PROTESTANT LANGUAGE LANGUAGES SPOKEN:GHANAIAN RECREATIONAL DRUG USE DRUG USE?NO LEARNING BARRIERS / SPECIAL NEEDS ABILITY TO UNDERSTAND VERBAL INSTRUCTIONS AVERAGE , ABILITY TO UNDERSTAND WRITTEN INSTRUCTIONS AVERAGE , KNOWLEDGE OF EDUCATIONAL NEEDS/TREATMENT PLAN AVERAGE , LEARNING PREFERENCE NO PREFERENCE , ORIENTED TO PLAN OF CARE: PATIENT , PAIN MANAGEMENT PATIENT , TEACHING MATERIALS DEMONSTRATION/VERBAL INSTRUCTION , RESPONSE TO EDUCATION EXPLAINES ACCURATELY/VERBALIZES UNDERSTANDING , TEACHING MATERIALS DEMONSTRATION/VERBAL INSTRUCTION , RESPONSE TO EDUCATION EXPLAINS ACCURATELY/VERBALIZES UNDERSTANDING. REVIEWED WITH PATIENT 08/08/18 1002 JSREVIEWED WITH PATIENT 09/30/19 1002 JS. HOSPITALIZATION/MAJOR DIAGNOSTIC PROCEDURE DEHYDRATION, INNER EAR INFECTION 02/2018 PANCREATITIS 05/30-06/04 CONSTIPATION 05/2018 REVIEW OF SYSTEMS REVIEWED BY: PROVIDER: ROXANNE QUINTERO . CONSTITUTIONAL: ANY CHANGE IN YOUR MEDICAL CONDITION? YES, 2 BROKEN RIBS DUE TO FALL . CHILLS NO . FEVER NO . INFECTION: DO YOU HAVE NEW INFECTIONS? NO . DO YOU HAVE HISTORY OF MRSA? NO . MUSCULOSKELETAL: ANY NEW PATTERNS OF PAIN OR NUMBNESS? YES, STATES INCREASED PAIN SINCE FALL . GASTROENTEROLOGY: ANY NEW CHANGE IN BOWEL CONTROL? NO . GENITOURINARY: ANY NEW CHANGE IN BLADDER CONTROL? NO . IS THERE A CHANCE YOU COULD BE ? NO . HEMATOLOGY/LYMPH: DO YOU TAKE ANY BLOOD THINNERS? (FOR EXAMPLE- COUMADIN, PLAVIX, AGGRENOX, PLATEL, PRADAXA, OR XARELTO) NO . WHEN WAS YOUR LAST DOSE? DATE: TIME: . NEUROLOGY: HAVE YOU FALLEN IN THE PAST 12 MONTHS? YES, SLIPPED ON WET FLOOR IN BATHROOM, BROKE 2 RIBS, AND HURT HER HIP . ANY NEW EXTREMITY NUMBNESS OR WEAKNESS? YES, NUMBNESS TO LEFT LEG . CARDIOLOGY: DO YOU HAVE A PACEMAKER OR DEFIBRILLATOR? NO . RESPIRATORY: HAVE YOU BEEN SICK IN THE PAST WEEK? NO . FEVER NO . FLU LIKE SYMPTOMS? NO . COUGH NO . INTEGUMENTARY: DO YOU HAVE ANY RASHES OR OPEN SORES? NO . ALLERGIC/IMMUNO: ARE YOU ALLERGIC TO IV DYE? NO . ANY NEW ALLERGIES? NO . PSYCHIATRIC: DO YOU HAVE THOUGHTS OF HURTING YOURSELF OR SOMEONE ELSE? NO . ARE YOU ABUSED, NEGLECTED, OR IN AN UNSAFE ENVIRONMENT? NO . ENDOCRINOLOGY: ARE YOU DIABETIC? YES . OTHER: DO YOU NEED ANY PRESCRIPTIONS? YES . IF YES, PLEASE LIST: ____TRAMADOL, GABAPENTIN . ANY NEW PROBLEMS WITH YOUR MEDICATIONS? NO . WHEN DID YOU LAST EAT? ____ . WHEN DID YOU LAST DRINK? ____ . WHAT DID YOU LAST DRINK? ____ . NAME OF PERSON DRIVING YOU HOME? ____ . DO YOU HAVE ANY OTHER QUESTIONS OR CONCERNS YES, 2 CRACKED RIBS OF LEFT SIDE AND INCREASED PAIN DOWN HER BACK AND LEFT LEG . VITAL SIGNS WT 124.8 LBS, HT 63 IN, BMI 22.10 INDEX, BP 125/56 MM HG, HR 97 /MIN, RR 18 /MIN, TEMP 97.7 F, OXYGEN SAT % 96%, SAFE IN ENV? (Y/N) YES, NA INITIALS [place] 09:49, REVIEWED BY: CLAYTON. EXAMINATION GENERAL EXAMINATION: GENERAL COMFORTABLE. PSYCH AFFECT NORMAL. NECK: TRACHEA MIDLINE. NO CERVICAL OR SUPRACLAVICULAR LYMPHADENOPATHY NOTED. LUNGS: LUNG RAUSCH ARE CLEAR TO AUSCULTATION BILATERALLY. GOOD MOVEMENT OF AIR. HEART: S1, S2 IN A REGULAR RATE AND RHYTHM. NO SIGNIFICANT MURMURS, RUBS OR GALLOPS NOTED. LUMBAR SACRAL SPINE TENDER WITH PALPATION OVER LEFT LUMBAR PARASPINAL AREA.. THORACIC SPINE TENDER OVER LEFT LOWER THORACIC. ASSESSMENTS ACUTE LEFT-SIDED THORACIC BACK PAIN - M54.6 (PRIMARY) COMPLEX REGIONAL PAIN SYNDROME TYPE 1 OF LEFT UPPER EXTREMITY - G90.512 ACUTE PAIN DUE TO TRAUMA - G89.11 LOW BACK PAIN - M54.5 TREATMENT ACUTE LEFT-SIDED THORACIC BACK PAIN REFILL GABAPENTIN CAPSULE, 300 MG, 1 CAPSULE, ORALLY, BID, 30 DAYS, 60 CAPSULE, REFILLS 5 REFILL TRAMADOL HCL TABLET, 50 MG, 1 CAP, ORALLY, Q6H QID MDD4, 30 DAYS, 120, REFILLS 5 START PERCOCET TABLET, 5-325 MG, 1 TABLET NEEDED, ORALLY, EVERY 6 HRS PRN SEVERE PAIN MDD4 #45 SHOULD LAST 30 DAYS, 30 DAYS, 45, REFILLS 0 NOTES: GET REFERAL FROM DR PANTOJA FOR THORACIC /LOW BACK PAIN S/P FALL INJURY. PROCEDURE CODES FA211 ESTABILISHED PATIENT [facility] CHARGE DISPOSITION & COMMUNICATION FOLLOW UP WE WILL CALL AFTER WE RECIEVE REFERRAL (REASON: LLBP/THORACIC PAIN POST FALL NEED 30 MIN) ELECTRONICALLY SIGNED BY LEON GAXIOLA ON 09/30/2019 AT 02:35 PM EST DISCLAIMER : THIS IS A VISIT SUMMARY EXTRACTED FROM THE [employer] CHART. IT IS NOT A COPY OF THE [employer] PROGRESS NOTE. NONID
== END ==
LOC: M PAIN 09:45
PROVIDERS: ATTEND Nurse Practitioner Family
DX: M54.6 Pain in thoracic spine (principal); G90.512 Complex regional pain syndrome I of left upper limb; G89.11 Acute pain due to trauma; M54.5 Low back pain

== ENCOUNTER → 2020-04-22 | Outpatient (CLI) | payer MEDICARE, BC ==
--- NOTE | 2020-04-24 01:07 | ECWPNPC ---
PATIENT NAME: AMI FERNANDEZ : 1955 GENDER: FEMALE VISIT DATE: 04/22/2020 DISCHARGE DATE: 04/22/20 0959 VISIT LOCKED DATE TIME: PHYSICIAN: ROXANNE TREADWELL RESOURCE: ROXANNE TREADWELL REASON FOR APPOINTMENT 1. HAND HISTORY OF PRESENT ILLNESS GENERAL: -. FALL RISK SCREENING: SCREENING :ONE FALL WITH INJURY IN THE PAST YEAR PAIN SCREENING: PATIENT HAS A COMPLAINT OF ACUTE OR CHRONIC PAIN :YES 04/22/20 INTENSITY OF PAIN (SCALE OF 1 TO 10):7 WHAT DOES YOUR PAIN FEEL LIKE:ACHING, CONTINOUS, INTERMITTENT, THROBBING PAIN IS INCREASED BY: ACTIVITY PAIN IS DECREASED BY: REST NURSING NOTE: -. PAIN CENTER INTAKE QUESTIONS: DO YOU HAVE A HISTORY OF MRSA? :NO DO YOU TAKE A BLOOD THINNERS? :NO DO YOU HAVE ANY BLEEDING DISORDERS? :NO ANY NEW NUMBNESS OR WEAKNESS IN YOUR LEGS OR ARMS? :NO ANY PACEMAKER,DEFIBRILLATOR, OR DORSAL COLUMN STIMULATOR? :NO DO YOU HAVE ANY RASHES OR OPEN SORES? :NO ARE YOU ALLERGIC TO IV DYE? :NO ARE YOU DIABETIC? :YES ANY NEW PROBLEMS WITH YOUR MEDICATIONS? :NO HAVE YOU RECEIVED A VACCINE IN THE PAST 30 DAYS? :NO DO YOU PLAN TO RECEIVE A VACCINE IN THE NEXT 21 DAYS? :NO DO YOU NEED ANY PRESCRIPTION? :YES TRAMADOL, CANDI DO YOU TAKE ANY IMMUNOSUPPRESSIVE MEDICATIONS? :NO IS THERE A CHANCE YOU COULD BE ? :NO ARE YOU BREAST FEEDING? :NO HISTORY OF PRESENT ILLNESS: HERE FOR F/U AND MANAGEMENT OF CHRONIC LEFT ANTERIOR CHEST AND LEFT ARM PAIN. PATIENT IS DOING WELL .HISTORY OF LEFT ARM PAIN SINCE VASCULAR SURGERY LEFT ARM 2003.RATING PAIN VAS 2/10.CURRENTLY USING TRAMADOL 50MG Q6H PRN.SINCE RESTARTING GABAPENTIN A FEW MONTHS AGO PARATHESIAS IN FINGER ON LEFT HAND HAVE RESOLVED. PAIN THE PATIENT DESCRIBES THE PAIN... CURRENT MEDICATIONS TAKING OMEPRAZOLE 20MG 40 MG TABLET 1 TAB(S) ORAL DAILY TAKING METFORMIN HCL 1000 MG TABLET 1 TAB ORALLY TWICE A DAY TAKING OXYBUTYNIN CHLORIDE 5 MG TABLET 1 TAB(S) ORALLY DAILY TAKING PROPRANOLOL HCL 10 MG TABLET 2 ORALLY TWICE A DAY TAKING ASPIRIN ADULT LOW DOSE 81 MG TABLET DELAYED RELEASE 1 TABLET ORALLY ONCE A DAY TAKING DOC-Q-LACE 100 MG CAPSULE 6 CAPSULE NEEDED ORALLY ONCE A DAY TAKING CILOSTAZOL 100 MG TABLET 1 TAB(S) ORALLY TWICE DAILY TAKING MIRALAX - PACKET 1 PACKET MIXED WITH 8 OUNCES OF FLUID ORALLY ONCE A DAY NEEDED TAKING MELATON-5 [id number]-MG - CAPSULE ORALLY TAKING ZOLPIDEM TARTRATE 5 MG TABLET 1 TABLET AT BEDTIME ORALLY ONCE A DAY TAKING GABAPENTIN 300 MG CAPSULE 1 CAPSULE ORALLY BID TAKING TRAMADOL HCL 50 MG TABLET 1 CAP ORALLY Q6H QID MDD4 TAKING JANUVIA 50 MG TABLET DIRECTED ORALLY NOT-TAKING FLURAZEPAM HCL 30 MG CAPSULE 1 CAPSULE AT BEDTIME ORALLY ONCE A DAY NOT-TAKING GABAPENTIN 300 MG CAPSULE 2 CAPSULE ORALLY BID NOT-TAKING SIMVASTATIN 40 40MG TABLET 1 TAB(S) ORAL DAILY NOT-TAKING SPIRONOLACTONE 25 MG TABLET 1 TABLET ORALLY ONCE A DAY NOT-TAKING TRAZODONE 50 50MG TABLET 1 TAB(S) ORAL DAILY NOT-TAKING TRADJENTA 5 MG TABLET 1 TABLET ORALLY ONCE A DAY NOT-TAKING MULTIVITAMIN ADULT - TABLET 1 TAB ORALLY DAILY NOT-TAKING IRON 1 TAB ORAL DAILY NOT-TAKING HYDROXYZINE HCL 25 MG TABLET 2 TABS ORALLY AT BEDTIME NOT-TAKING TRAMADOL HCL 50 MG TABLET 2 ORALLY EVERY 68HRS PRN MDD6 NOT-TAKING TESSALON PERLES 300 MG CAPSULE 1 CAPSULE ORALLY NEEDED NOT-TAKING FOLIC ACID XTRA 1 TABLET 1 TAB(S) ORALLY DAILY NOT-TAKING FOLIC ACID 1 MG TABLET 1 TABLET ORALLY ONCE A DAY NOT-TAKING TRAMADOL HCL 50 MG TABLETS 2 TABLET ORALLY 2TAB Q8H PRN MDD 6 NOT-TAKING DEXILANT 60 MG CAPSULE DELAYED RELEASE 1 CAPSULE ORALLY ONCE A DAY NOT-TAKING AMITIZA 24 MCG CAPSULE 1 CAPSULE WITH FOOD ORALLY THREE TIMES A DAY NOT-TAKING ALPRAZOLAM 0.25 MG TABLET 1 TABLET ORALLY BID PRN NOT-TAKING MAGNESIUM 400 CAPSULE 1 ORALLY ONCE A DAY NOT-TAKING JANUVIA 50 MG TABLET DIRECTED ORALLY NOT-TAKING PERCOCET 5-325 MG TABLET 1 TABLET NEEDED ORALLY EVERY 6 HRS PRN SEVERE PAIN MDD4 #45 SHOULD LAST 30 DAYS MEDICATION LIST REVIEWED AND RECONCILED WITH THE PATIENT PAST MEDICAL HISTORY CUTANEOUS MYCOSIS FUNGOIDES HISTORY OF H PYROI FOLLOWING IN [place] FOR A 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 AND POSSIBLE REMOVAL SPINAL CORD STIMULATOR FOR NERVE DAMAGE NIDDM HIGH CHOLESTEROL HYPERTENSION PANCREATITIS COPD BROKEN RIBS ALLERGIES VICODIN: ITCHING - ALLERGY PAXIL: HIVES - ALLERGY CYMBALTA: SEVERE ITCHING - ALLERGY SURGICAL HISTORY MULTIPLE VASCULAR SURGERIES CHOLECYSTECTOMY FAMILY HISTORY FATHER: HEART DISEASE SIBLINGS: BROTHERS HEART DISEASE BROTHER - CANCER. SOCIAL HISTORY GENERAL: TOBACCO USE ARE YOU A:CURRENT SMOKER ARE YOU INTERESTED IN QUITTING?READY TO QUIT COUNSELED THE PATIENT ON TOBACCO USE, CESSATION [id number]/24/2020 HOW MANY CIGARETTES A DAY DO YOU SMOKE?6-10 PATIENT COUNSELED ON THE DANGERS OF TOBACCO USE AND URGED TO QUIT:09/30/2019 LATEX QUESTIONNAIRE LATEX ALLERGY : HAVE YOU EVER DEVELOPED ANY TYPE OF REACTION AFTER HANDLING LATEX PRODUCTS SUCH RUBBER GLOVES, CONDOMS, DIAPHRAGMS, BALLOONS, SOCKS, OR UNDERWEAR?NO LATEX ALLERGY : HAVE YOU EVER DEVELOPED ANY TYPE OF REACTION DURING OR AFTER DENTAL APPOINTMENT, VAGINAL/RECTAL EXAMINATION, SURGICAL PROCEDURE, OR ANY OTHER EXPOSURE?NO DATE ASKED : 06/10/2019 LATEX RISK : HAVE YOU EVER HAD ANY DIFFICULTY BREATHING OR HIVES AFTER EATING OR HANDLING ANY FRUITS, OR VEGETABLES; SUCH KIWI, BANANAS, STONE FRUITS, OR CHESTNUTSNO LATEX RISK : DO YOU HAVE A PREVIOUS PERSONAL HISTORY OF MORE THAN NINE SURGERIES, SPINA BIFIDA, OR REPEATED CATHERIZATIONS? NO LATEX RISK : ARE YOU FREQUENTLY EXPOSED TO LATEX PRODUCTS IN YOUR OCCUPATION?NO RECREATIONAL DRUG USE DRUG USE?NO CAFFEINE CAFFEINE USE?YES HOW OFTEN AND HOW MUCH? 1-2 DAILY VOODOO [id number] CHEONDOISM LANGUAGE LANGUAGES SPOKEN:MACANESE LEARNING BARRIERS / SPECIAL NEEDS ABILITY TO UNDERSTAND VERBAL INSTRUCTIONS AVERAGE , ABILITY TO UNDERSTAND WRITTEN INSTRUCTIONS AVERAGE , KNOWLEDGE OF EDUCATIONAL NEEDS/TREATMENT PLAN AVERAGE , LEARNING PREFERENCE NO PREFERENCE , ORIENTED TO PLAN OF CARE: PATIENT , PAIN MANAGEMENT PATIENT , TEACHING MATERIALS DEMONSTRATION/VERBAL INSTRUCTION , RESPONSE TO EDUCATION EXPLAINES ACCURATELY/VERBALIZES UNDERSTANDING , TEACHING MATERIALS DEMONSTRATION/VERBAL INSTRUCTION , RESPONSE TO EDUCATION EXPLAINS ACCURATELY/VERBALIZES UNDERSTANDING. DIET: REGULAR. PAIN CLINIC PFS, CLERGY, PUBLIC HEALTH REFERRALS WAS THE PROVIDER NOTIFIED OF ANY PERTINENT INFO?YES HAS THE PATIENT BEEN EDUCATED REGARDING HIS/HER PLAN OF CARE?YES HAS THE PATIENT BEEN EDUCATED REGARDING PAIN, THE RISK FOR PAIN, THE IMPORTANCE OF EFFECTIVE PAIN MANAGEMENT, AND THE PAIN ASSESSMENT PROCESS?YES ADVANCE DIRECTIVE ADVANCE DIRECTIVE DISCUSSED WITH PATIENT:YES HCP INFORMATION GIVEN TO PATIENT AT THIS TIME, DECLINED ASSISTANCE IN FILLING OUT THE FORM. REVIEWED WITH PATIENT 08/08/18 1002 JSREVIEWED WITH PATIENT 09/30/19 1002 JS. HOSPITALIZATION/MAJOR DIAGNOSTIC PROCEDURE DEHYDRATION, INNER EAR INFECTION 02/2018 PANCREATITIS 05/30-06/04 CONSTIPATION 05/2018 REVIEW OF SYSTEMS CONSTITUTIONAL: ANY RECENT FEVER NO . CHILLS NO . WEIGHT CHANGE OF UNKNOWN REASONS NO . GASTROENTEROLOGY: NEW UNEXPLAINABLE CHANGES IN BOWEL CONTROL NO . CONSTIPATION NO . GENITOURINARY: ANY NEW CHANGE IN BLADDER CONTROL? NO . NEUROLOGY: NEW ONSET DIZZINESS OR NEUROLOGICAL CHANGES NOT MENTIONED NO . NEW NUMBNESS OR PAIN PATTERNS NOT MENTIONED AND PERTINENT TO TODAY'S VISIT NO . CARDIOLOGY: NEW CHEST PRESSURE NO . NEW CHEST PAIN NO . RESPIRATORY: UNEXPLAINABLE COUGH NO . NEW SHORTNESS OF BREATH NO . VITAL SIGNS WT 138.6 LBS, HT 63 IN, BMI 24.55 INDEX, BP 180/74 MM HG, HR 84 /MIN, RR 18 /MIN, TEMP 98.6 F, OXYGEN SAT % 99%, NA INITIALS SC 09:06. EXAMINATION GENERAL EXAMINATION: GENERALCOMFORTABLE. PSYCHAFFECT NORMAL. NECK:TRACHEA MIDLINE. NO CERVICAL OR SUPRACLAVICULAR LYMPHADENOPATHY NOTED. LUNGS:LUNG RAUSCH ARE CLEAR TO AUSCULTATION BILATERALLY. GOOD MOVEMENT OF AIR. HEART:S1, S2 IN A REGULAR RATE AND RHYTHM. NO SIGNIFICANT MURMURS, RUBS OR GALLOPS NOTED. 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 - G90.512 (PRIMARY) TREATMENT COMPLEX REGIONAL PAIN SYNDROME TYPE 1 OF LEFT UPPER EXTREMITY CONTINUE GABAPENTIN CAPSULE, 300 MG, 1 CAPSULE, ORALLY, BID CONTINUE TRAMADOL HCL TABLET, 50 MG, 1 CAP, ORALLY, Q6H QID MDD4 NOTES: ISTOP REGISTRY REVIEWED AND DEMONSTRATES COMPLLIANCE. RECENT URINE TOXICOLOGY REVIEWED. NO UNAUTHORIZED MEDICATIONS. NO ILLICIT SUBSTANCES AND PRESCRIBED MEDICATIONS WERE PRESENT. URINR TOX TODAY , RISKS OF NARCOTIC/OPIOD MEDICATIONS INCLUDES BUT IS NOT LIMITED TO RISK OF DEPENDANCE/DEVELOPMENT OF ADDICTION, MOOD DISTURBANCE AND DEPRESSION, OSTEOPOROSIS, HORMONAL AND LABIDAL CHANGES, RESPIRATORY DEPRESSION AND . PATIENT IS ADVISED NOT TO DRIVE OR DRINK ALCOHOL WHILE ON THESE MEDICATIONS. PROCEDURE CODES FA211 ESTABILISHED PATIENT [facility] FACILITY CHARGE DISPOSITION & COMMUNICATION FOLLOW UP CHECK TO SEE IF WE HAVE REFERRAL FOR LOW BACK AND SCHEDULE A 30 MINUTE FOLLOW-UP FOR BOTH LEFT ARM IN NEW BODY PART LOW BACK ELECTRONICALLY SIGNED BY LEON GAXIOLA ON 04/23/2020 AT 08:40 AM EDT DISCLAIMER : THIS IS A VISIT SUMMARY EXTRACTED FROM THE [employer] CHART. IT IS NOT A COPY OF THE [employer] PROGRESS NOTE. RO
== END ==
LOC: M PAIN 09:00
PROVIDERS: ATTEND Nurse Practitioner Family
DX: G90.512 Complex regional pain syndrome I of left upper limb (principal)

== ENCOUNTER → 2020-09-15 | Outpatient (CLI) | payer MEDICARE, BC ==
--- NOTE | 2020-09-18 00:26 | ECWPNPC ---
PATIENT NAME: AMI FERNANDEZ : 1955 GENDER: FEMALE VISIT DATE: 09/15/2020 DISCHARGE DATE: 09/15/20 1203 VISIT LOCKED DATE TIME: PHYSICIAN: ROXANNE TREADWELL RESOURCE: ROXANNE TREADWELL REASON FOR APPOINTMENT 1. NBP-RIB/BACK HISTORY OF PRESENT ILLNESS DEPRESSION SCREENING: PHQ-2 (2015 EDITION) LITTLE INTEREST OR PLEASURE IN DOING THINGS?NOT AT ALL FEELING DOWN, DEPRESSED, OR HOPELESS?NOT AT ALL TOTAL SCORE0 GENERAL: PATIENT IS BEING SEEN TODAY FOR A NEW BODY PART AND AREA OF PAIN. SHE IS REFERRED BY PRIMARY CARE PROVIDER DR. ZAMUDIO FOR PERSISTENT LEFT LOW BACK PAIN. THIS BEGAN AFTER A FALL INJURY WHEN SHE LANDED ON THE SIDE OF HER TUB IN AUGUST 2019. HAS HAD PERSISTENT LOW BACK PAIN SINCE THAT POINT. PAIN IS AGGRAVATED BY RANGE OF JOINT MOTION OF THE SPINE. CURRENTLY USING TYLENOL [address] OF THE LUMBAR SPINE DONE IN FEBRUARY 2020. THIS IS SHOWING MILD DEGENERATIVE CHANGES. -. FALL RISK SCREENING: SCREENING :ONE FALL WITH INJURY IN THE PAST YEAR PAIN SCREENING: PATIENT HAS A COMPLAINT OF ACUTE OR CHRONIC PAIN :YES LOCATION OF PAIN:LOW BACK LEFT RIB PAIN INTENSITY OF PAIN (SCALE OF 1 TO 10):4 WHAT DOES YOUR PAIN FEEL LIKE:SHARP, STABBING DURATION:CONTINOUS, CONSTANT PAIN IS INCREASED BY:ACTIVITIES PAIN IS DECREASED BY:USE OF PAIN MEDICATIONS TREATMENT/MEDICATIONS USED TO MANAGE PAIN: TRAMADOL, TYLENOL LEVEL OF RELIEF FROM PAIN TREATMENTS IN THE PAST:50% PAIN HAS INTERFERED WITH THE FOLLOWING:BATHING/DRESSING, WALKING ABILITY, HOUSEWORK, SLEEP, TRANSPORTATION, TOILETING NURSING NOTE: -. PAIN CENTER INTAKE QUESTIONS: DO YOU HAVE A HISTORY OF MRSA? :NO DO YOU TAKE A BLOOD THINNERS? :NO DO YOU HAVE ANY BLEEDING DISORDERS? :NO ANY NEW NUMBNESS OR WEAKNESS IN YOUR LEGS OR ARMS? :NO ANY PACEMAKER,DEFIBRILLATOR, OR DORSAL COLUMN STIMULATOR? :NO DO YOU HAVE ANY RASHES OR OPEN SORES? :NO ARE YOU ALLERGIC TO IV DYE? :NO ARE YOU DIABETIC? :YES ANY NEW PROBLEMS WITH YOUR MEDICATIONS? :NO HAVE YOU RECEIVED A VACCINE IN THE PAST 30 DAYS? :NO DO YOU PLAN TO RECEIVE A VACCINE IN THE NEXT 21 DAYS? :YES FLU, SHINGLE PNEUMO DO YOU NEED ANY PRESCRIPTION? :YES TRAMADOL, CANDI DO YOU TAKE ANY IMMUNOSUPPRESSIVE MEDICATIONS? :NO IS THERE A CHANCE YOU COULD BE ? :NO ARE YOU BREAST FEEDING? :NO CURRENT MEDICATIONS TAKING GABAPENTIN 300 MG CAPSULE 2 CAPSULE ORALLY BID TAKING SIMVASTATIN 40 40MG TABLET 1 TAB(S) ORAL DAILY TAKING MULTIVITAMIN ADULT - TABLET 1 TAB ORALLY DAILY TAKING TRAMADOL HCL 50 MG TABLET 2 ORALLY EVERY 68HRS PRN MDD6 TAKING JANUVIA 50 MG TABLET DIRECTED ORALLY TAKING METFORMIN HCL 1000 MG TABLET 1 TABLET WITH A MEAL ORALLY BID NOT-TAKING FLURAZEPAM HCL 30 MG CAPSULE 1 CAPSULE AT BEDTIME ORALLY ONCE A DAY NOT-TAKING SPIRONOLACTONE 25 MG TABLET 1 TABLET ORALLY ONCE A DAY NOT-TAKING TRAZODONE 50 50MG TABLET 1 TAB(S) ORAL DAILY NOT-TAKING TRADJENTA 5 MG TABLET 1 TABLET ORALLY ONCE A DAY NOT-TAKING IRON 1 TAB ORAL DAILY NOT-TAKING HYDROXYZINE HCL 25 MG TABLET 2 TABS ORALLY AT BEDTIME NOT-TAKING TESSALON PERLES 300 MG CAPSULE 1 CAPSULE ORALLY NEEDED NOT-TAKING FOLIC ACID XTRA 1 TABLET 1 TAB(S) ORALLY DAILY NOT-TAKING FOLIC ACID 1 MG TABLET 1 TABLET ORALLY ONCE A DAY NOT-TAKING TRAMADOL HCL 50 MG TABLETS 2 TABLET ORALLY 2TAB Q8H PRN MDD 6 NOT-TAKING DEXILANT 60 MG CAPSULE DELAYED RELEASE 1 CAPSULE ORALLY ONCE A DAY NOT-TAKING AMITIZA 24 MCG CAPSULE 1 CAPSULE WITH FOOD ORALLY THREE TIMES A DAY NOT-TAKING ALPRAZOLAM 0.25 MG TABLET 1 TABLET ORALLY BID PRN NOT-TAKING MAGNESIUM 400 CAPSULE 1 ORALLY ONCE A DAY NOT-TAKING PERCOCET 5-325 MG TABLET 1 TABLET NEEDED ORALLY EVERY 6 HRS PRN SEVERE PAIN MDD4 #45 SHOULD LAST 30 DAYS NOT-TAKING OMEPRAZOLE 20MG 40 MG TABLET 1 TAB(S) ORAL DAILY NOT-TAKING METFORMIN HCL 1000 MG TABLET 1 TAB ORALLY TWICE A DAY NOT-TAKING OXYBUTYNIN CHLORIDE 5 MG TABLET 1 TAB(S) ORALLY DAILY NOT-TAKING PROPRANOLOL HCL 10 MG TABLET 2 ORALLY TWICE A DAY NOT-TAKING ASPIRIN ADULT LOW DOSE 81 MG TABLET DELAYED RELEASE 1 TABLET ORALLY ONCE A DAY NOT-TAKING DOC-Q-LACE 100 MG CAPSULE 6 CAPSULE NEEDED ORALLY ONCE A DAY NOT-TAKING CILOSTAZOL 100 MG TABLET 1 TAB(S) ORALLY TWICE DAILY NOT-TAKING MIRALAX - PACKET 1 PACKET MIXED WITH 8 OUNCES OF FLUID ORALLY ONCE A DAY NEEDED NOT-TAKING MELATON-5 [id number]-MG - CAPSULE ORALLY NOT-TAKING ZOLPIDEM TARTRATE 5 MG TABLET 1 TABLET AT BEDTIME ORALLY ONCE A DAY NOT-TAKING JANUVIA 50 MG TABLET DIRECTED ORALLY NOT-TAKING GABAPENTIN 300 MG CAPSULE 1 CAPSULE ORALLY BID NOT-TAKING TRAMADOL HCL 50 MG TABLET 1 CAP ORALLY Q6H QID MDD4 MEDICATION LIST REVIEWED AND RECONCILED WITH THE PATIENT PAST MEDICAL HISTORY CUTANEOUS MYCOSIS FUNGOIDES HISTORY OF H PYROI FOLLOWING IN [place] FOR A 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 AND POSSIBLE REMOVAL SPINAL CORD STIMULATOR FOR NERVE DAMAGE NIDDM HIGH CHOLESTEROL HYPERTENSION PANCREATITIS COPD BROKEN RIBS ALLERGIES VICODIN: ITCHING - ALLERGY PAXIL: HIVES - ALLERGY CYMBALTA: SEVERE ITCHING - ALLERGY SURGICAL HISTORY MULTIPLE VASCULAR SURGERIES CHOLECYSTECTOMY FAMILY HISTORY FATHER: HEART DISEASE SIBLINGS: BROTHERS HEART DISEASE BROTHER - CANCER. SOCIAL HISTORY GENERAL: TOBACCO USE ARE YOU A:CURRENT SMOKER ARE YOU INTERESTED IN QUITTING?THINKING ABOUT QUITTING HOW MANY CIGARETTES A DAY DO YOU SMOKE?6-10 PATIENT COUNSELED ON THE DANGERS OF TOBACCO USE AND URGED TO QUIT:09/30/2019 LATEX QUESTIONNAIRE LATEX ALLERGY : HAVE YOU EVER DEVELOPED ANY TYPE OF REACTION AFTER HANDLING LATEX PRODUCTS SUCH RUBBER GLOVES, CONDOMS, DIAPHRAGMS, BALLOONS, SOCKS, OR UNDERWEAR?NO LATEX ALLERGY : HAVE YOU EVER DEVELOPED ANY TYPE OF REACTION DURING OR AFTER DENTAL APPOINTMENT, VAGINAL/RECTAL EXAMINATION, SURGICAL PROCEDURE, OR ANY OTHER EXPOSURE?NO LATEX RISK : HAVE YOU EVER HAD ANY DIFFICULTY BREATHING OR HIVES AFTER EATING OR HANDLING ANY FRUITS, OR VEGETABLES; SUCH KIWI, BANANAS, STONE FRUITS, OR CHESTNUTSNO LATEX RISK : DO YOU HAVE A PREVIOUS PERSONAL HISTORY OF MORE THAN NINE SURGERIES, SPINA BIFIDA, OR REPEATED CATHERIZATIONS? NO LATEX RISK : ARE YOU FREQUENTLY EXPOSED TO LATEX PRODUCTS IN YOUR OCCUPATION?NO DATE ASKED : 09/15/2020 ALCOHOL SCREENING DID YOU HAVE A DRINK CONTAINING ALCOHOL IN THE PAST YEAR?NO POINTS0 INTERPRETATIONNEGATIVE RECREATIONAL DRUG USE DRUG USE?NO CAFFEINE CAFFEINE USE?YES HOW OFTEN AND HOW MUCH? 1-2 DAILY PENTECOSTALISM [id number] EPISCOPAL LANGUAGE LANGUAGES SPOKEN:MONGOLIAN LEARNING BARRIERS / SPECIAL NEEDS ABILITY TO UNDERSTAND VERBAL INSTRUCTIONS AVERAGE , ABILITY TO UNDERSTAND WRITTEN INSTRUCTIONS AVERAGE , KNOWLEDGE OF EDUCATIONAL NEEDS/TREATMENT PLAN AVERAGE , LEARNING PREFERENCE NO PREFERENCE , ORIENTED TO PLAN OF CARE: PATIENT , PAIN MANAGEMENT PATIENT , TEACHING MATERIALS DEMONSTRATION/VERBAL INSTRUCTION , RESPONSE TO EDUCATION EXPLAINES ACCURATELY/VERBALIZES UNDERSTANDING , TEACHING MATERIALS DEMONSTRATION/VERBAL INSTRUCTION , RESPONSE TO EDUCATION EXPLAINS ACCURATELY/VERBALIZES UNDERSTANDING. DIET: REGULAR. PAIN CLINIC PFS, CLERGY, PUBLIC HEALTH REFERRALS WAS THE PROVIDER NOTIFIED OF ANY PERTINENT INFO?YES HAS THE PATIENT BEEN EDUCATED REGARDING HIS/HER PLAN OF CARE?YES HAS THE PATIENT BEEN EDUCATED REGARDING PAIN, THE RISK FOR PAIN, THE IMPORTANCE OF EFFECTIVE PAIN MANAGEMENT, AND THE PAIN ASSESSMENT PROCESS?YES ADVANCE DIRECTIVE ADVANCE DIRECTIVE DISCUSSED WITH PATIENT:YES HCP INFORMATION GIVEN TO PATIENT AT THIS TIME, DECLINED ASSISTANCE IN FILLING OUT THE FORM. REVIEWED WITH PATIENT 08/08/18 1002 JSREVIEWED WITH PATIENT 09/30/19 1002 JS. HOSPITALIZATION/MAJOR DIAGNOSTIC PROCEDURE DEHYDRATION, INNER EAR INFECTION 02/2018 PANCREATITIS 05/30-06/04 CONSTIPATION 05/2018 REVIEW OF SYSTEMS CONSTITUTIONAL: ANY RECENT FEVER NO . CHILLS NO . WEIGHT CHANGE OF UNKNOWN REASONS NO . GASTROENTEROLOGY: NEW UNEXPLAINABLE CHANGES IN BOWEL CONTROL NO . CONSTIPATION NO . GENITOURINARY: ANY NEW CHANGE IN BLADDER CONTROL? NO . NEUROLOGY: NEW ONSET DIZZINESS OR NEUROLOGICAL CHANGES NOT MENTIONED NO . NEW NUMBNESS OR PAIN PATTERNS NOT MENTIONED AND PERTINENT TO TODAY'S VISIT NO . CARDIOLOGY: NEW CHEST PRESSURE NO . NEW CHEST PAIN NO . RESPIRATORY: UNEXPLAINABLE COUGH NO . NEW SHORTNESS OF BREATH NO . VITAL SIGNS WT 149 LBS, HT 63 IN, BMI 26.39 INDEX, BP 145/70 MM HG, HR 94 /MIN, RR 18 /MIN, TEMP 97.2 F, OXYGEN SAT % 96, SAFE IN ENV? (Y/N) Y, REVIEWED BY: EM. EXAMINATION GENERAL EXAMINATION: GENERAL AWAKE,ALERT ,PLEAASANT . PSYCH AFFECT NORMAL . LUNGS: LUNG RAUSCH ARE CLEAR TO AUSCULTATION BILATERALLY. GOOD MOVEMENT OF AIR . HEART: S1, S2 IN A REGULAR RATE AND RHYTHM. NO SIGNIFICANT MURMURS, RUBS OR GALLOPS NOTED . MUSCULOSKELETAL: MUSCLE STRENGTH TESTING 4/5 BILATERAL LOWER EXTREMITIES. LUMBAR: TRIGGER POINTS:, ELICITED WITH PALPATION OVER LEFT LUMBAR PARAVERTEBRAL MUSCLES WITH INCREASED PAIN NOTED WITH ROM IN THIS AREA. DIAGNOSTIC TESTS REVIEWEDCT LUMBAR SPINE FEBRUARY 2020 . ASSESSMENTS MYALGIA, OTHER SITE - M79.18 (PRIMARY) TREATMENT MYALGIA, OTHER SITE NOTES: CONTINUE WITH MEDICATIONS PRESCRIBED FOR RSD LEFT HAND/ARM. TRIGGER POINT INJECTIONS RIGHT LUMBAR PARASPINAL. PROCEDURE CODES FA211 ESTABILISHED PATIENT [facility] FACILITY CHARGE DISPOSITION & COMMUNICATION FOLLOW UP POST PROCEDURE/MEDICATION MANAGEMENT/URINE TOX (REASON: TRIGGER POINT INJECTIONS RIGHT LUMBAR PARASPINAL/MEDICATION MANAGEMENT COMPLEX REGIONAL PAIN SYNDROME LEFT UPPER EXTREMITY/URINE TOXICOLOGY AT FOLLOW-UP) ELECTRONICALLY SIGNED BY LEON GAXIOLA ON 09/17/2020 AT 10:24 AM EST DISCLAIMER : THIS IS A VISIT SUMMARY EXTRACTED FROM THE [employer] CHART. IT IS NOT A COPY OF THE [employer] PROGRESS NOTE. RO
== END ==
LOC: M PAIN 11:00
PROVIDERS: ATTEND Nurse Practitioner Family
DX: M79.18 Myalgia, other site (principal); E11.9 Type 2 diabetes mellitus without complications; I10 Essential (primary) hypertension; J44.9 Chronic obstructive pulmonary disease, unspecified; F17.210 Nicotine dependence, cigarettes, uncomplicated; Z88.5 Allergy status to narcotic agent; Z88.8 Allergy status to other drugs, medicaments and biological substances; Z79.84 Long term (current) use of oral hypoglycemic drugs; Z79.891 Long term (current) use of opiate analgesic; Z79.899 Other long term (current) drug therapy

== ENCOUNTER → 2020-11-11 | Outpatient (CLI) | payer MEDICARE, BC ==
--- NOTE | 2020-11-12 23:58 | ECWPNPC ---
PATIENT NAME: AMI FERNANDEZ : 1955 GENDER: FEMALE VISIT DATE: 11/11/2020 DISCHARGE DATE: 11/11/20 1223 VISIT LOCKED DATE TIME: PHYSICIAN: ROXANNE TREADWELL RESOURCE: ROXANNE TREADWELL REASON FOR APPOINTMENT 1. F/U WANTS TO DISCUSS PROCEDURE HISTORY OF PRESENT ILLNESS GENERAL: HERE FOR FOLLOW-UP OF CHRONIC SHOULDER AND LOW BACK PAIN. HAD TO MISS SCHEDULED TRIGGER POINT INJECTION LAST MONTH DUE TO IN THE FAMILY. SHE IS HAVING A LOT OF STRESS RELATED ISSUES RIGHT NOW AND WOULD LIKE TO HOLD OFF ON INJECTION THERAPY. ALSO BEING ADVISED TO HAVE A CARDIAC STRESS TEST BY HER LAW FIRM CONSULTANT FOR ANGINA. CURRENTLY BEING TREATED FOR URINARY TRACT INFECTION WITH AN ANTIBIOTIC. FINDS CURRENT CHRONIC PAIN MEDICATIONS HELPFUL AT REDUCING PAIN AND KEEPING HER FUNCTIONAL. DENIES ADVERSE EFFECTS WITH HER MEDICATIONS. SHE IS ADVISED TO BRING IN HER MEDICATIONS TO EVERY VISIT AT THE PAIN CLINIC. -. FALL RISK SCREENING: SCREENING :NO FALLS REPORTED IN THE LAST YEAR PAIN SCREENING: PATIENT HAS A COMPLAINT OF ACUTE OR CHRONIC PAIN :YES LOCATION OF PAIN:LEFT SHOULDER, LOW BACK INTENSITY OF PAIN (SCALE OF 1 TO 10):4 WHAT DOES YOUR PAIN FEEL LIKE:ACHING, CONTINOUS, SHARP DURATION:INTERMITTENT, AWAKENS FROM SLEEP PAIN IS INCREASED BY:ACTIVITIES, OTHERS RAISING ARM ABOVE HEAD INTENSIFIES THE PAIN PAIN IS DECREASED BY:USE OF PAIN MEDICATIONS TRAMADOL AND TYLENOL TREATMENT/MEDICATIONS USED TO MANAGE PAIN:OTC PAIN RELIEVERS, OPIOIDS, PHYSICAL THERAPY LEVEL OF RELIEF FROM PAIN TREATMENTS IN THE PAST:50% NURSING NOTE: -. PAIN CENTER INTAKE QUESTIONS: DO YOU HAVE A HISTORY OF MRSA? :NO DO YOU TAKE A BLOOD THINNERS? :NO DO YOU HAVE ANY BLEEDING DISORDERS? :NO ANY NEW NUMBNESS OR WEAKNESS IN YOUR LEGS OR ARMS? :NO ANY PACEMAKER,DEFIBRILLATOR, OR DORSAL COLUMN STIMULATOR? :NO DO YOU HAVE ANY RASHES OR OPEN SORES? :NO ARE YOU ALLERGIC TO IV DYE? :NO ARE YOU DIABETIC? :YES ANY NEW PROBLEMS WITH YOUR MEDICATIONS? :NO HAVE YOU RECEIVED A VACCINE IN THE PAST 30 DAYS? :NO DO YOU PLAN TO RECEIVE A VACCINE IN THE NEXT 21 DAYS? :YES FLU SHOT DO YOU NEED ANY PRESCRIPTION? :YES NEEDS GABAPENTIN REFILL DO YOU TAKE ANY IMMUNOSUPPRESSIVE MEDICATIONS? :NO IS THERE A CHANCE YOU COULD BE ? :NO ARE YOU BREAST FEEDING? :NO CURRENT MEDICATIONS TAKING MAGNESIUM 500 MG TABLET 2 TABLETS WITH A MEAL ORALLY ONCE A DAY TAKING OXYBUTYNIN CHLORIDE 5 MG TABLET 1 TAB(S) ORALLY DAILY TAKING PROPRANOLOL HCL 10 MG TABLET 2 ORALLY TWICE A DAY TAKING SIMVASTATIN 40 40MG TABLET 1 TAB(S) ORAL DAILY TAKING MULTIVITAMIN ADULT - TABLET 1 TAB ORALLY DAILY TAKING JANUVIA 50 MG TABLET DIRECTED ORALLY TAKING METFORMIN HCL 1000 MG TABLET 1 TABLET WITH A MEAL ORALLY BID TAKING GABAPENTIN 300 MG CAPSULE 2 CAPSULE ORALLY BID TAKING TRAMADOL HCL 50 MG TABLET 2 ORALLY EVERY 6-8HRS PRN MDD6 TAKING OMEPRAZOLE 40 MG CAPSULE DELAYED RELEASE 1 CAPSULE 30 MINUTES BEFORE MORNING MEAL ORALLY ONCE A DAY TAKING ZOLPIDEM TARTRATE ER 6.25 MG TABLET EXTENDED RELEASE 1 TABLET AT BEDTIME NEEDED ORALLY ONCE A DAY TAKING NITROGLYCERIN 0.4 MG TABLET SUBLINGUAL DIRECTED SUBLINGUAL NOT-TAKING FLURAZEPAM HCL 30 MG CAPSULE 1 CAPSULE AT BEDTIME ORALLY ONCE A DAY NOT-TAKING SPIRONOLACTONE 25 MG TABLET 1 TABLET ORALLY ONCE A DAY NOT-TAKING TRAZODONE 50 50MG TABLET 1 TAB(S) ORAL DAILY NOT-TAKING TRADJENTA 5 MG TABLET 1 TABLET ORALLY ONCE A DAY NOT-TAKING IRON 1 TAB ORAL DAILY NOT-TAKING HYDROXYZINE HCL 25 MG TABLET 2 TABS ORALLY AT BEDTIME NOT-TAKING TESSALON PERLES 300 MG CAPSULE 1 CAPSULE ORALLY NEEDED NOT-TAKING FOLIC ACID XTRA 1 TABLET 1 TAB(S) ORALLY DAILY NOT-TAKING FOLIC ACID 1 MG TABLET 1 TABLET ORALLY ONCE A DAY NOT-TAKING TRAMADOL HCL 50 MG TABLETS 2 TABLET ORALLY 2TAB Q8H PRN MDD 6 NOT-TAKING DEXILANT 60 MG CAPSULE DELAYED RELEASE 1 CAPSULE ORALLY ONCE A DAY NOT-TAKING AMITIZA 24 MCG CAPSULE 1 CAPSULE WITH FOOD ORALLY THREE TIMES A DAY NOT-TAKING ALPRAZOLAM 0.25 MG TABLET 1 TABLET ORALLY BID PRN NOT-TAKING PERCOCET 5-325 MG TABLET 1 TABLET NEEDED ORALLY EVERY 6 HRS PRN SEVERE PAIN MDD4 #45 SHOULD LAST 30 DAYS NOT-TAKING OMEPRAZOLE 20MG 40 MG TABLET 1 TAB(S) ORAL DAILY NOT-TAKING METFORMIN HCL 1000 MG TABLET 1 TAB ORALLY TWICE A DAY NOT-TAKING ASPIRIN ADULT LOW DOSE 81 MG TABLET DELAYED RELEASE 1 TABLET ORALLY ONCE A DAY NOT-TAKING DOC-Q-LACE 100 MG CAPSULE 6 CAPSULE NEEDED ORALLY ONCE A DAY NOT-TAKING CILOSTAZOL 100 MG TABLET 1 TAB(S) ORALLY TWICE DAILY NOT-TAKING MIRALAX - PACKET 1 PACKET MIXED WITH 8 OUNCES OF FLUID ORALLY ONCE A DAY NEEDED NOT-TAKING MELATON-5 [id number]-MG - CAPSULE ORALLY NOT-TAKING ZOLPIDEM TARTRATE 5 MG TABLET 1 TABLET AT BEDTIME ORALLY ONCE A DAY NOT-TAKING JANUVIA 50 MG TABLET DIRECTED ORALLY NOT-TAKING GABAPENTIN 300 MG CAPSULE 1 CAPSULE ORALLY BID NOT-TAKING TRAMADOL HCL 50 MG TABLET 1 CAP ORALLY Q6H QID MDD4 MEDICATION LIST REVIEWED AND RECONCILED WITH THE PATIENT PAST MEDICAL HISTORY CUTANEOUS MYCOSIS FUNGOIDES HISTORY OF H PYROI FOLLOWING IN [place] FOR A 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 AND POSSIBLE REMOVAL SPINAL CORD STIMULATOR FOR NERVE DAMAGE NIDDM HIGH CHOLESTEROL HYPERTENSION PANCREATITIS COPD BROKEN RIBS ALLERGIES VICODIN: ITCHING - ALLERGY PAXIL: HIVES - ALLERGY CYMBALTA: SEVERE ITCHING - ALLERGY SURGICAL HISTORY MULTIPLE VASCULAR SURGERIES CHOLECYSTECTOMY FAMILY HISTORY FATHER: HEART DISEASE SIBLINGS: BROTHERS HEART DISEASE BROTHER - CANCER. SOCIAL HISTORY GENERAL: TOBACCO USE ARE YOU A:CURRENT SMOKER HOW MANY CIGARETTES A DAY DO YOU SMOKE?6-10 ARE YOU INTERESTED IN QUITTING?THINKING ABOUT QUITTING PATIENT COUNSELED ON THE DANGERS OF TOBACCO USE AND URGED TO QUIT:09/30/2019 LATEX QUESTIONNAIRE LATEX ALLERGY : HAVE YOU EVER DEVELOPED ANY TYPE OF REACTION AFTER HANDLING LATEX PRODUCTS SUCH RUBBER GLOVES, CONDOMS, DIAPHRAGMS, BALLOONS, SOCKS, OR UNDERWEAR?YES LATEX ALLERGY : HAVE YOU EVER DEVELOPED ANY TYPE OF REACTION DURING OR AFTER DENTAL APPOINTMENT, VAGINAL/RECTAL EXAMINATION, SURGICAL PROCEDURE, OR ANY OTHER EXPOSURE?NO LATEX RISK : HAVE YOU EVER HAD ANY DIFFICULTY BREATHING OR HIVES AFTER EATING OR HANDLING ANY FRUITS, OR VEGETABLES; SUCH KIWI, BANANAS, STONE FRUITS, OR CHESTNUTSNO LATEX RISK : DO YOU HAVE A PREVIOUS PERSONAL HISTORY OF MORE THAN NINE SURGERIES, SPINA BIFIDA, OR REPEATED CATHERIZATIONS? YES LATEX RISK : ARE YOU FREQUENTLY EXPOSED TO LATEX PRODUCTS IN YOUR OCCUPATION?NO DATE ASKED : 11/11/2020 ALCOHOL SCREENING DID YOU HAVE A DRINK CONTAINING ALCOHOL IN THE PAST YEAR?NO POINTS0 INTERPRETATIONNEGATIVE RECREATIONAL DRUG USE DRUG USE?NO CAFFEINE CAFFEINE USE?YES HOW OFTEN AND HOW MUCH? 1-2 DAILY SCIENTOLOGIST [id number] CHRISTIANITY LANGUAGE LANGUAGES SPOKEN:ICELANDIC LEARNING BARRIERS / SPECIAL NEEDS BARRIERS TO LEARNING?NO HEARING IMPAIRED?NO VISION IMPAIRED?YES :CORRECTIVE LENSES COGNITIVELY IMPAIRED?NO READINESS TO LEARN?YES LEARNING PREFERENCES?NO LEARNING CAPABILITIES PRESENT?YES EMOTIONAL BARRIERS?NO SPECIAL DEVICES?NO MATERIAL RECLAIMER NEEDED?NO DIET: REGULAR. PAIN CLINIC PFS, CLERGY, PUBLIC HEALTH REFERRALS WAS THE PROVIDER NOTIFIED OF ANY PERTINENT INFO?YES HAS THE PATIENT BEEN EDUCATED REGARDING HIS/HER PLAN OF CARE?YES HAS THE PATIENT BEEN EDUCATED REGARDING PAIN, THE RISK FOR PAIN, THE IMPORTANCE OF EFFECTIVE PAIN MANAGEMENT, AND THE PAIN ASSESSMENT PROCESS?YES ADVANCE DIRECTIVE ADVANCE DIRECTIVE DISCUSSED WITH PATIENT:YES HCP INFORMATION GIVEN TO PATIENT. REVIEWED WITH PATIENT 08/08/18 1002 JSREVIEWED WITH PATIENT 09/30/19 1002 JS. HOSPITALIZATION/MAJOR DIAGNOSTIC PROCEDURE DEHYDRATION, INNER EAR INFECTION 02/2018 PANCREATITIS 05/30-06/04 CONSTIPATION 05/2018 REVIEW OF SYSTEMS CONSTITUTIONAL: ANY RECENT FEVER NO . CHILLS NO . WEIGHT CHANGE OF UNKNOWN REASONS NO . GASTROENTEROLOGY: NEW UNEXPLAINABLE CHANGES IN BOWEL CONTROL NO . CONSTIPATION NO . GENITOURINARY: ANY NEW CHANGE IN BLADDER CONTROL? CURRENTLY BEING TREATED FOR URINARY TRACT INFECTION . NEUROLOGY: NEW ONSET DIZZINESS OR NEUROLOGICAL CHANGES NOT MENTIONED NO . NEW NUMBNESS OR PAIN PATTERNS NOT MENTIONED AND PERTINENT TO TODAY'S VISIT NO . CARDIOLOGY: NEW CHEST PRESSURE NO . NEW CHEST PAIN FOLLOWING WITH DR. ZAMUDIO FOR ANGINA AND IS SCHEDULED FOR A CARDIAC STRESS TEST. DENIES CHEST PAIN OR SHORTNESS OF BREATH TODAY . RESPIRATORY: UNEXPLAINABLE COUGH NO . NEW SHORTNESS OF BREATH NO . VITAL SIGNS WT 151.4 LBS, HT 63 IN, BMI 26.82 INDEX, BP 198/91 MM HG, REPEAT BP 164/84 MANUAL BP LEFT ARM, HR 82 /MIN, RR 18 /MIN, TEMP 99.2 F, OXYGEN SAT % 97%Aurea CRUZ RNMANUAL BP LEFT ARM TAKEN. 164/84. PROVIDER NOTIFIED. TONY GAMBOA MA. EXAMINATION GENERAL EXAMINATION: GENERALAWAKE,ALERT ,PLEASANT . PSYCHAFFECT NORMAL . LUNGS:LUNG RAUSCH ARE CLEAR TO AUSCULTATION BILATERALLY. GOOD MOVEMENT OF AIR . HEART:S1, S2 IN A REGULAR RATE AND RHYTHM. NO SIGNIFICANT MURMURS, RUBS OR GALLOPS NOTED . ASSESSMENTS MYALGIA, OTHER SITE - M79.18 (PRIMARY) COMPLEX REGIONAL PAIN SYNDROME TYPE 1 OF LEFT UPPER EXTREMITY - G90.512 CHRONIC PRESCRIPTION OPIATE USE - Z79.899 TREATMENT MYALGIA, OTHER SITE CONTINUE TRAMADOL HCL TABLET, 50 MG, 2, ORALLY, EVERY 6-8HRS PRN MDD6 REFILL GABAPENTIN CAPSULE, 300 MG, 2 CAPSULE, ORALLY, BID, 30 DAYS, 120 CAPSULE, REFILLS 5 NOTES: ISTOP REGISTRY REVIEWED AND DEMONSTRATES COMPLLIANCE.RECENT URINE TOXICOLOGY REVIEWED. NO UNAUTHORIZED MEDICATIONS. NO ILLICIT SUBSTANCES AND PRESCRIBED MEDICATIONS WERE PRESENT. URINE TOXICOLOGY TODAY PATIENT REMINDER TO BRING PAIN MEDICATION TO ALL FUTURE APPOINTMENTS AT THE PAIN CENTER , RISKS OF NARCOTIC/OPIOD MEDICATIONS INCLUDES BUT IS NOT LIMITED TO RISK OF DEPENDANCE/DEVELOPMENT OF ADDICTION, MOOD DISTURBANCE AND DEPRESSION, OSTEOPOROSIS, HORMONAL AND LABIDAL CHANGES, RESPIRATORY DEPRESSION AND . PATIENT IS ADVISED NOT TO DRIVE OR DRINK ALCOHOL WHILE ON THESE MEDICATIONS. PROCEDURE CODES FA211 ESTABILISHED PATIENT [facility] CHARGE DISPOSITION & COMMUNICATION FOLLOW UP 3 MONTHS (REASON: LEFT SHOULDER, LEFT ARREST NECK AND LOW BACK PAIN, REVIEW URINE TOXICOLOGY) ELECTRONICALLY SIGNED BY LEON GAXIOLA ON 11/12/2020 AT 10:33 AM EST DISCLAIMER : THIS IS A VISIT SUMMARY EXTRACTED FROM THE [employer] CHART. IT IS NOT A COPY OF THE [employer] PROGRESS NOTE. RO
== END ==
LOC: M PAIN 10:15
PROVIDERS: ATTEND Nurse Practitioner Family
DX: M79.18 Myalgia, other site (principal); G90.512 Complex regional pain syndrome I of left upper limb; E11.9 Type 2 diabetes mellitus without complications; J44.9 Chronic obstructive pulmonary disease, unspecified; F17.210 Nicotine dependence, cigarettes, uncomplicated; Z88.5 Allergy status to narcotic agent; Z88.8 Allergy status to other drugs, medicaments and biological substances; Z79.84 Long term (current) use of oral hypoglycemic drugs; Z79.891 Long term (current) use of opiate analgesic; Z79.899 Other long term (current) drug therapy

== ENCOUNTER → 2021-03-04 | Outpatient (CLI) | payer MEDICARE, BC ==
[~2021-03-04] MED LIST changes: -MAG400TA PO; +MAGN400T35 PO
--- NOTE | 2021-03-06 00:57 | ECWPNPC ---
PATIENT NAME: AMI FERNANDEZ : 1955 GENDER: FEMALE VISIT DATE: 03/04/2021 DISCHARGE DATE: 03/04/21 1034 VISIT LOCKED DATE TIME: PHYSICIAN: ROXANNE TREADWELL RESOURCE: ROXANNE TREADWELL REASON FOR APPOINTMENT 1. LEFT SHOULDER, LEFT ARREST NECK AND LOW BACK PAIN, REVIEW URINE TOXICOLOGY HISTORY OF PRESENT ILLNESS DEPRESSION SCREENING: PHQ-2 (2015 EDITION) LITTLE INTEREST OR PLEASURE IN DOING THINGS?NOT AT ALL FEELING DOWN, DEPRESSED, OR HOPELESS?NOT AT ALL TOTAL SCORE0 GENERAL: HERE FOR ROUTINE FOLLOW-UP AND MEDICATION MANAGEMENT FOR CHRONIC NECK PAIN AND LEFT ARM PAIN. FINDS CURRENT CHRONIC PAIN MEDICATION HELPFUL AT REDUCING PAIN AND KEEPING HER FUNCTIONAL. DENIES ADVERSE SIDE EFFECTS WITH MEDICATION. CURRENTLY USING TRAMADOL 50 MG EVERY 6 HOURS 4 TIMES A DAY WITH TYLENOL 500 MG. TAKING GABAPENTIN 300 MG TWICE A DAY. -. FALL RISK SCREENING: SCREENING : NO FALLS REPORTED IN THE LAST YEAR. PAIN SCREENING: PATIENT HAS A COMPLAINT OF ACUTE OR CHRONIC PAIN :YES LOCATION OF PAIN:NECK, LEFT SHOULDER, LOW BACK INTENSITY OF PAIN (SCALE OF 1 TO 10):3 WHAT DOES YOUR PAIN FEEL LIKE:ACHING, CONTINOUS DURATION:CONTINOUS, CONSTANT, ALL DAY PAIN IS INCREASED BY:ACTIVITIES PAIN IS DECREASED BY:USE OF PAIN MEDICATIONS NURSING NOTE: -. PAIN CENTER INTAKE QUESTIONS: DO YOU HAVE A HISTORY OF MRSA? :NO DO YOU TAKE A BLOOD THINNERS? :NO DO YOU HAVE ANY BLEEDING DISORDERS? :NO ANY NEW NUMBNESS OR WEAKNESS IN YOUR LEGS OR ARMS? :NO ANY PACEMAKER,DEFIBRILLATOR, OR DORSAL COLUMN STIMULATOR? :NO DO YOU HAVE ANY RASHES OR OPEN SORES? :NO ARE YOU ALLERGIC TO IV DYE? :NO ARE YOU DIABETIC? :YES ANY NEW PROBLEMS WITH YOUR MEDICATIONS? :NO HAVE YOU RECEIVED A VACCINE IN THE PAST 30 DAYS? :NO DO YOU PLAN TO RECEIVE A VACCINE IN THE NEXT 21 DAYS? :NO FLU SHOT DO YOU NEED ANY PRESCRIPTION? :NO NEEDS TRAMADOL REFILL DO YOU TAKE ANY IMMUNOSUPPRESSIVE MEDICATIONS? :NO IS THERE A CHANCE YOU COULD BE ? :NO ARE YOU BREAST FEEDING? :NO CURRENT MEDICATIONS TAKING MAGNESIUM 500 MG TABLET 2 TABLETS WITH A MEAL ORALLY ONCE A DAY TAKING OXYBUTYNIN CHLORIDE 5 MG TABLET 1 TAB(S) ORALLY DAILY TAKING PROPRANOLOL HCL 10 MG TABLET 2 ORALLY TWICE A DAY TAKING SIMVASTATIN 40 40MG TABLET 1 TAB(S) ORAL DAILY TAKING MULTIVITAMIN ADULT - TABLET 1 TAB ORALLY DAILY TAKING JANUVIA 50 MG TABLET DIRECTED ORALLY TAKING METFORMIN HCL 1000 MG TABLET 1 TABLET WITH A MEAL ORALLY BID TAKING OMEPRAZOLE 40 MG CAPSULE DELAYED RELEASE 1 CAPSULE 30 MINUTES BEFORE MORNING MEAL ORALLY ONCE A DAY TAKING ZOLPIDEM TARTRATE ER 6.25 MG TABLET EXTENDED RELEASE 1 TABLET AT BEDTIME NEEDED ORALLY ONCE A DAY TAKING NITROGLYCERIN 0.4 MG TABLET SUBLINGUAL DIRECTED SUBLINGUAL TAKING GABAPENTIN 300 MG CAPSULE 2 CAPSULE ORALLY TWICE A DAY TAKING TRAMADOL HCL 50 MG TABLET 4 TAB ORALLY PRN MDD6 TAKING RANOLAZINE ER 500 MG TABLET EXTENDED RELEASE 12 HOUR 1 TABLET ORALLY TWICE A DAY NOT-TAKING FLURAZEPAM HCL 30 MG CAPSULE 1 CAPSULE AT BEDTIME ORALLY ONCE A DAY NOT-TAKING SPIRONOLACTONE 25 MG TABLET 1 TABLET ORALLY ONCE A DAY NOT-TAKING TRAZODONE 50 50MG TABLET 1 TAB(S) ORAL DAILY NOT-TAKING TRADJENTA 5 MG TABLET 1 TABLET ORALLY ONCE A DAY NOT-TAKING IRON 1 TAB ORAL DAILY NOT-TAKING HYDROXYZINE HCL 25 MG TABLET 2 TABS ORALLY AT BEDTIME NOT-TAKING TESSALON PERLES 300 MG CAPSULE 1 CAPSULE ORALLY NEEDED NOT-TAKING FOLIC ACID XTRA 1 TABLET 1 TAB(S) ORALLY DAILY NOT-TAKING FOLIC ACID 1 MG TABLET 1 TABLET ORALLY ONCE A DAY NOT-TAKING TRAMADOL HCL 50 MG TABLETS 2 TABLET ORALLY 2TAB Q8H PRN MDD 6 NOT-TAKING DEXILANT 60 MG CAPSULE DELAYED RELEASE 1 CAPSULE ORALLY ONCE A DAY NOT-TAKING AMITIZA 24 MCG CAPSULE 1 CAPSULE WITH FOOD ORALLY THREE TIMES A DAY NOT-TAKING ALPRAZOLAM 0.25 MG TABLET 1 TABLET ORALLY BID PRN NOT-TAKING PERCOCET 5-325 MG TABLET 1 TABLET NEEDED ORALLY EVERY 6 HRS PRN SEVERE PAIN MDD4 #45 SHOULD LAST 30 DAYS NOT-TAKING OMEPRAZOLE 20MG 40 MG TABLET 1 TAB(S) ORAL DAILY NOT-TAKING METFORMIN HCL 1000 MG TABLET 1 TAB ORALLY TWICE A DAY NOT-TAKING ASPIRIN ADULT LOW DOSE 81 MG TABLET DELAYED RELEASE 1 TABLET ORALLY ONCE A DAY NOT-TAKING DOC-Q-LACE 100 MG CAPSULE 6 CAPSULE NEEDED ORALLY ONCE A DAY NOT-TAKING CILOSTAZOL 100 MG TABLET 1 TAB(S) ORALLY TWICE DAILY NOT-TAKING MIRALAX - PACKET 1 PACKET MIXED WITH 8 OUNCES OF FLUID ORALLY ONCE A DAY NEEDED NOT-TAKING MELATON-5 [id number]-MG - CAPSULE ORALLY NOT-TAKING ZOLPIDEM TARTRATE 5 MG TABLET 1 TABLET AT BEDTIME ORALLY ONCE A DAY NOT-TAKING JANUVIA 50 MG TABLET DIRECTED ORALLY NOT-TAKING GABAPENTIN 300 MG CAPSULE 1 CAPSULE ORALLY BID NOT-TAKING TRAMADOL HCL 50 MG TABLET 1 CAP ORALLY Q6H QID MDD4 MEDICATION LIST REVIEWED AND RECONCILED WITH THE PATIENT PAST MEDICAL HISTORY CUTANEOUS MYCOSIS FUNGOIDES HISTORY OF H PYROI FOLLOWING IN [place] FOR A 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 AND POSSIBLE REMOVAL SPINAL CORD STIMULATOR FOR NERVE DAMAGE NIDDM HIGH CHOLESTEROL HYPERTENSION PANCREATITIS COPD BROKEN RIBS ALLERGIES VICODIN: ITCHING - ALLERGY PAXIL: HIVES - ALLERGY CYMBALTA: SEVERE ITCHING - ALLERGY SURGICAL HISTORY MULTIPLE VASCULAR SURGERIES CHOLECYSTECTOMY FAMILY HISTORY FATHER: 53 YRS, HEART DISEASE MOTHER: ALIVE SIBLINGS: BROTHERS HEART DISEASE SON(S): ALIVE 3 BROTHER(S) , 1 SISTER(S) - HEALTHY. 2 SON(S) - HEALTHY. BROTHER - CANCER 57, OLDER BROTHER 68 COPD AND CANCER. SOCIAL HISTORY GENERAL: TOBACCO USE ARE YOU A:CURRENT SMOKER ARE YOU INTERESTED IN QUITTING?THINKING ABOUT QUITTING PREVIOUS QUIT ATTEMPTS?YES, WITHIN THE LAST 6 MONTHS. COUNSELED THE PATIENT ON SMOKING CESSATION, EDUCATION [id number]/06/2021 HOW MANY CIGARETTES A DAY DO YOU SMOKE?6-10 HOW SOON AFTER YOU WAKE UP DO YOU SMOKE YOUR FIRST CIGARETTE?WITHIN 5 MIN PATIENT COUNSELED ON THE DANGERS OF TOBACCO USE AND URGED TO QUIT:03/04/2021 LATEX QUESTIONNAIRE LATEX ALLERGY : HAVE YOU EVER DEVELOPED ANY TYPE OF REACTION AFTER HANDLING LATEX PRODUCTS SUCH RUBBER GLOVES, CONDOMS, DIAPHRAGMS, BALLOONS, SOCKS, OR UNDERWEAR?YES LATEX ALLERGY : HAVE YOU EVER DEVELOPED ANY TYPE OF REACTION DURING OR AFTER DENTAL APPOINTMENT, VAGINAL/RECTAL EXAMINATION, SURGICAL PROCEDURE, OR ANY OTHER EXPOSURE?NO LATEX RISK : HAVE YOU EVER HAD ANY DIFFICULTY BREATHING OR HIVES AFTER EATING OR HANDLING ANY FRUITS, OR VEGETABLES; SUCH KIWI, BANANAS, STONE FRUITS, OR CHESTNUTSNO LATEX RISK : DO YOU HAVE A PREVIOUS PERSONAL HISTORY OF MORE THAN NINE SURGERIES, SPINA BIFIDA, OR REPEATED CATHERIZATIONS? YES LATEX RISK : ARE YOU FREQUENTLY EXPOSED TO LATEX PRODUCTS IN YOUR OCCUPATION?NO DATE ASKED : 03/04/2021 ALCOHOL USE: NO. ALCOHOL SCREENING DID YOU HAVE A DRINK CONTAINING ALCOHOL IN THE PAST YEAR?NO POINTS0 INTERPRETATIONNEGATIVE RECREATIONAL DRUG USE DRUG USE?NO CAFFEINE CAFFEINE USE?YES HOW OFTEN AND HOW MUCH? 1-2 DAILY [employer] [id number] ALEVISM LANGUAGE LANGUAGES SPOKEN:ERITREAN LEARNING BARRIERS / SPECIAL NEEDS CHANGE FROM LAST VISIT?NO BARRIERS TO LEARNING?NO HEARING IMPAIRED?NO VISION IMPAIRED?YES :CORRECTIVE LENSES COGNITIVELY IMPAIRED?NO READINESS TO LEARN?YES LEARNING PREFERENCES?NO LEARNING CAPABILITIES PRESENT?YES EMOTIONAL BARRIERS?NO SPECIAL DEVICES?NO MANAGER UNIVERSITY NEEDED?NO DIET: REGULAR. - WAS THE PROVIDER NOTIFIED OF ANY PERTINENT INFO?YES HAS THE PATIENT BEEN EDUCATED REGARDING HIS/HER PLAN OF CARE?YES HAS THE PATIENT BEEN EDUCATED REGARDING PAIN, THE RISK FOR PAIN, THE IMPORTANCE OF EFFECTIVE PAIN MANAGEMENT, AND THE PAIN ASSESSMENT PROCESS?YES ADVANCE DIRECTIVE ADVANCE DIRECTIVE DISCUSSED WITH PATIENT:YES HCP INFORMATION GIVEN TO PATIENT. REVIEWED WITH PATIENT 08/08/18 1002 JSREVIEWED WITH PATIENT 09/30/19 1002 JS. HOSPITALIZATION/MAJOR DIAGNOSTIC PROCEDURE DEHYDRATION, INNER EAR INFECTION 02/2018 PANCREATITIS 05/30-06/04 CONSTIPATION 05/2018 REVIEW OF SYSTEMS CONSTITUTIONAL: ANY RECENT FEVER NO . CHILLS NO . WEIGHT CHANGE OF UNKNOWN REASONS NO . GASTROENTEROLOGY: NEW UNEXPLAINABLE CHANGES IN BOWEL CONTROL NO . CONSTIPATION NO . GENITOURINARY: ANY NEW CHANGE IN BLADDER CONTROL? NO . NEUROLOGY: NEW ONSET DIZZINESS OR NEUROLOGICAL CHANGES NOT MENTIONED NO . NEW NUMBNESS OR PAIN PATTERNS NOT MENTIONED AND PERTINENT TO TODAY'S VISIT NO . CARDIOLOGY: NEW CHEST PRESSURE NO . PATIENT DENIES NO . RESPIRATORY: UNEXPLAINABLE COUGH NO . NEW SHORTNESS OF BREATH NO . VITAL SIGNS WT 144.6 LBS, HT 63 IN, BMI 25.61 INDEX, BP 121/51 MM HG, HR 93 /MIN, RR 18 /MIN, TEMP 98.2 F, OXYGEN SAT % 93%, SAFE IN ENV? (Y/N) YES, NA INITIALS OR 09:52T.NICOL MORRIS. EXAMINATION GENERAL EXAMINATION: GENERALAWAKE,ALERT ,PLEASANT . PSYCHAFFECT NORMAL . LUNGS:LUNG RAUSCH ARE CLEAR TO AUSCULTATION BILATERALLY. GOOD MOVEMENT OF AIR . HEART:S1, S2 IN A REGULAR RATE AND RHYTHM. NO SIGNIFICANT MURMURS, RUBS OR GALLOPS NOTED . ASSESSMENTS MYALGIA, OTHER SITE - M79.18 (PRIMARY) COMPLEX REGIONAL PAIN SYNDROME TYPE 1 OF LEFT UPPER EXTREMITY - G90.512 CHRONIC PRESCRIPTION OPIATE USE - Z79.899 TREATMENT MYALGIA, OTHER SITE REFILL TRAMADOL HCL TABLET, 50 MG, 1 TABLET NEEDED, ORALLY, Q6H PRN MDD4, 30 DAYS, 120, REFILLS 2 CONTINUE GABAPENTIN CAPSULE, 300 MG, 1 CAPSULE, ORALLY, TWICE A DAY, 30 DAYS, 60 CAPSULE, REFILLS 2 NOTES: ISTOP REGISTRY REVIEWED AND DEMONSTRATES COMPLLIANCE. BRINGS IN MEDICATIONS WHICH IS APPROPRIATE FOR WHAT WAS DISPENSED. RECENT URINE TOXICOLOGY REVIEWED. NO UNAUTHORIZED MEDICATIONS. NO ILLICIT SUBSTANCES AND PRESCRIBED MEDICATIONS WERE PRESENT. , RISKS OF NARCOTIC/OPIOD MEDICATIONS INCLUDES BUT IS NOT LIMITED TO RISK OF DEPENDANCE/DEVELOPMENT OF ADDICTION, MOOD DISTURBANCE AND DEPRESSION, OSTEOPOROSIS, HORMONAL AND LABIDAL CHANGES, RESPIRATORY DEPRESSION AND . PATIENT IS ADVISED NOT TO DRIVE OR DRINK ALCOHOL WHILE ON THESE MEDICATIONS. PROCEDURE CODES FA211 ESTABILISHED PATIENT [facility] FACILITY CHARGE DISPOSITION & COMMUNICATION FOLLOW UP 3 MONTHS (REASON: MED MGMNT/UTOX) ELECTRONICALLY SIGNED BY LEON GAXIOLA ON 03/05/2021 AT 11:42 AM EDT DISCLAIMER : THIS IS A VISIT SUMMARY EXTRACTED FROM THE [employer] CHART. IT IS NOT A COPY OF THE [employer] PROGRESS NOTE. RO
== END ==
LOC: M PAIN 10:00
PROVIDERS: ATTEND Nurse Practitioner Family
DX: M79.18 Myalgia, other site (principal); G90.512 Complex regional pain syndrome I of left upper limb; E11.9 Type 2 diabetes mellitus without complications; J44.9 Chronic obstructive pulmonary disease, unspecified; F17.210 Nicotine dependence, cigarettes, uncomplicated; Z88.5 Allergy status to narcotic agent; Z88.8 Allergy status to other drugs, medicaments and biological substances; Z79.84 Long term (current) use of oral hypoglycemic drugs; Z79.891 Long term (current) use of opiate analgesic; Z79.899 Other long term (current) drug therapy

== ENCOUNTER → 2021-06-03 | Outpatient (CLI) | payer MEDICARE, BC ==
[~2021-06-03] MED LIST changes: +OMEP40CA4 PO; -OMEP40CA97 PO
--- NOTE | 2021-06-04 04:10 | ECWPNPC ---
PATIENT NAME: AMI FERNANDEZ : 1955 GENDER: FEMALE VISIT DATE: 06/03/2021 DISCHARGE DATE: 06/03/21 1044 VISIT LOCKED DATE TIME: PHYSICIAN: ROXANNE TREADWELL RESOURCE: ROXANNE TREADWELL REASON FOR APPOINTMENT 1. MED MGMNT/UTOX HISTORY OF PRESENT ILLNESS GENERAL: HERE FOR FOLLOW-UP AND MEDICATION MANAGEMENT. CONTINUES TO FIND CURRENT MEDICATION HELPFUL AT REDUCING PAIN AND KEEPING HER COMFORTABLE. DENIES ADVERSE SIDE EFFECTS WITH HER MEDICATION. -. FALL RISK SCREENING: SCREENING : NO FALLS REPORTED IN THE LAST YEAR. PAIN SCREENING: PATIENT HAS A COMPLAINT OF ACUTE OR CHRONIC PAIN :YES LOCATION OF PAIN:LEFT SHOULDER, LOW BACK INTENSITY OF PAIN (SCALE OF 1 TO 10):0 WHAT DOES YOUR PAIN FEEL LIKE:OTHER NOT IN ANY PAIN DURATION:ONLY WITH SPECIFIC ACTIVITIES PAIN IS INCREASED BY:ACTIVITIES PAIN IS DECREASED BY:USE OF PAIN MEDICATIONS NURSING NOTE: -. PAIN CENTER INTAKE QUESTIONS: DO YOU HAVE A HISTORY OF MRSA? :NO DO YOU TAKE A BLOOD THINNERS? :NO DO YOU HAVE ANY BLEEDING DISORDERS? :NO ANY NEW NUMBNESS OR WEAKNESS IN YOUR LEGS OR ARMS? :YES WHOLE RIGHT ARM NUMBNESS ANY PACEMAKER,DEFIBRILLATOR, OR DORSAL COLUMN STIMULATOR? :NO DO YOU HAVE ANY RASHES OR OPEN SORES? :NO ARE YOU ALLERGIC TO IV DYE? :NO ARE YOU DIABETIC? :YES ANY NEW PROBLEMS WITH YOUR MEDICATIONS? :NO HAVE YOU RECEIVED A VACCINE IN THE PAST 30 DAYS? :NO DO YOU PLAN TO RECEIVE A VACCINE IN THE NEXT 21 DAYS? :NO DO YOU NEED ANY PRESCRIPTION? :YES NEEDS TRAMADOL REFILL DO YOU TAKE ANY IMMUNOSUPPRESSIVE MEDICATIONS? :NO IS THERE A CHANCE YOU COULD BE ? :NO ARE YOU BREAST FEEDING? :NO CURRENT MEDICATIONS TAKING MAGNESIUM 500 MG TABLET 2 TABLETS WITH A MEAL ORALLY ONCE A DAY TAKING OXYBUTYNIN CHLORIDE 5 MG TABLET 1 TAB(S) ORALLY DAILY TAKING PROPRANOLOL HCL 10 MG TABLET 2 ORALLY TWICE A DAY TAKING SIMVASTATIN 40 40MG TABLET 1 TAB(S) ORAL DAILY TAKING MULTIVITAMIN ADULT - TABLET 1 TAB ORALLY DAILY TAKING JANUVIA 50 MG TABLET DIRECTED ORALLY TAKING METFORMIN HCL 1000 MG TABLET 1 TABLET WITH A MEAL ORALLY BID TAKING OMEPRAZOLE 40 MG CAPSULE DELAYED RELEASE 1 CAPSULE 30 MINUTES BEFORE MORNING MEAL ORALLY ONCE A DAY TAKING ZOLPIDEM TARTRATE ER 6.25 MG TABLET EXTENDED RELEASE 1 TABLET AT BEDTIME NEEDED ORALLY ONCE A DAY TAKING NITROGLYCERIN 0.4 MG TABLET SUBLINGUAL DIRECTED SUBLINGUAL TAKING RANOLAZINE ER 500 MG TABLET EXTENDED RELEASE 12 HOUR 1 TABLET ORALLY TWICE A DAY TAKING TRAMADOL HCL 50 MG TABLET 1 TABLET NEEDED ORALLY Q6H PRN MDD4 TAKING GABAPENTIN 300 MG CAPSULE 1 CAPSULE ORALLY TWICE A DAY NOT-TAKING FLURAZEPAM HCL 30 MG CAPSULE 1 CAPSULE AT BEDTIME ORALLY ONCE A DAY NOT-TAKING SPIRONOLACTONE 25 MG TABLET 1 TABLET ORALLY ONCE A DAY NOT-TAKING TRAZODONE 50 50MG TABLET 1 TAB(S) ORAL DAILY NOT-TAKING TRADJENTA 5 MG TABLET 1 TABLET ORALLY ONCE A DAY NOT-TAKING IRON 1 TAB ORAL DAILY NOT-TAKING HYDROXYZINE HCL 25 MG TABLET 2 TABS ORALLY AT BEDTIME NOT-TAKING TESSALON PERLES 300 MG CAPSULE 1 CAPSULE ORALLY NEEDED NOT-TAKING FOLIC ACID XTRA 1 TABLET 1 TAB(S) ORALLY DAILY NOT-TAKING FOLIC ACID 1 MG TABLET 1 TABLET ORALLY ONCE A DAY NOT-TAKING TRAMADOL HCL 50 MG TABLETS 2 TABLET ORALLY 2TAB Q8H PRN MDD 6 NOT-TAKING DEXILANT 60 MG CAPSULE DELAYED RELEASE 1 CAPSULE ORALLY ONCE A DAY NOT-TAKING AMITIZA 24 MCG CAPSULE 1 CAPSULE WITH FOOD ORALLY THREE TIMES A DAY NOT-TAKING ALPRAZOLAM 0.25 MG TABLET 1 TABLET ORALLY BID PRN NOT-TAKING PERCOCET 5-325 MG TABLET 1 TABLET NEEDED ORALLY EVERY 6 HRS PRN SEVERE PAIN MDD4 #45 SHOULD LAST 30 DAYS NOT-TAKING OMEPRAZOLE 20MG 40 MG TABLET 1 TAB(S) ORAL DAILY NOT-TAKING METFORMIN HCL 1000 MG TABLET 1 TAB ORALLY TWICE A DAY NOT-TAKING ASPIRIN ADULT LOW DOSE 81 MG TABLET DELAYED RELEASE 1 TABLET ORALLY ONCE A DAY NOT-TAKING DOC-Q-LACE 100 MG CAPSULE 6 CAPSULE NEEDED ORALLY ONCE A DAY NOT-TAKING CILOSTAZOL 100 MG TABLET 1 TAB(S) ORALLY TWICE DAILY NOT-TAKING MIRALAX - PACKET 1 PACKET MIXED WITH 8 OUNCES OF FLUID ORALLY ONCE A DAY NEEDED NOT-TAKING MELATON-5 [id number]-MG - CAPSULE ORALLY NOT-TAKING ZOLPIDEM TARTRATE 5 MG TABLET 1 TABLET AT BEDTIME ORALLY ONCE A DAY NOT-TAKING JANUVIA 50 MG TABLET DIRECTED ORALLY NOT-TAKING GABAPENTIN 300 MG CAPSULE 1 CAPSULE ORALLY BID NOT-TAKING TRAMADOL HCL 50 MG TABLET 1 CAP ORALLY Q6H QID MDD4 MEDICATION LIST REVIEWED AND RECONCILED WITH THE PATIENT PAST MEDICAL HISTORY CUTANEOUS MYCOSIS FUNGOIDES HISTORY OF H PYROI FOLLOWING IN [place] FOR A 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 AND POSSIBLE REMOVAL SPINAL CORD STIMULATOR FOR NERVE DAMAGE NIDDM HIGH CHOLESTEROL HYPERTENSION PANCREATITIS COPD BROKEN RIBS HAD COVID IN MARCH/2021 ALLERGIES VICODIN: ITCHING - ALLERGY PAXIL: HIVES - ALLERGY CYMBALTA: SEVERE ITCHING - ALLERGY SURGICAL HISTORY MULTIPLE VASCULAR SURGERIES CHOLECYSTECTOMY SOCIAL HISTORY GENERAL: TOBACCO USE ARE YOU A:FORMER SMOKER HOW LONG HAS IT BEEN SINCE YOU LAST SMOKED?1-3 MONTHS SMOKING CESSATION INFORMATION GIVEN06/03/2021 LATEX QUESTIONNAIRE LATEX ALLERGY : HAVE YOU EVER DEVELOPED ANY TYPE OF REACTION AFTER HANDLING LATEX PRODUCTS SUCH RUBBER GLOVES, CONDOMS, DIAPHRAGMS, BALLOONS, SOCKS, OR UNDERWEAR?YES LATEX ALLERGY : HAVE YOU EVER DEVELOPED ANY TYPE OF REACTION DURING OR AFTER DENTAL APPOINTMENT, VAGINAL/RECTAL EXAMINATION, SURGICAL PROCEDURE, OR ANY OTHER EXPOSURE?NO LATEX RISK : HAVE YOU EVER HAD ANY DIFFICULTY BREATHING OR HIVES AFTER EATING OR HANDLING ANY FRUITS, OR VEGETABLES; SUCH KIWI, BANANAS, STONE FRUITS, OR CHESTNUTSNO LATEX RISK : DO YOU HAVE A PREVIOUS PERSONAL HISTORY OF MORE THAN NINE SURGERIES, SPINA BIFIDA, OR REPEATED CATHERIZATIONS? YES LATEX RISK : ARE YOU FREQUENTLY EXPOSED TO LATEX PRODUCTS IN YOUR OCCUPATION?NO DATE ASKED : 06/03/2021 ALCOHOL USE: NO. ALCOHOL SCREENING DID YOU HAVE A DRINK CONTAINING ALCOHOL IN THE PAST YEAR?NO POINTS0 INTERPRETATIONNEGATIVE RECREATIONAL DRUG USE DRUG USE?NO CAFFEINE CAFFEINE USE?YES HOW OFTEN AND HOW MUCH? 1-2 DAILY CHRISTIAN [id number] LANGUAGE LANGUAGES SPOKEN:THAI LEARNING BARRIERS / SPECIAL NEEDS CHANGE FROM LAST VISIT?NO BARRIERS TO LEARNING?NO HEARING IMPAIRED?NO VISION IMPAIRED?YES :CORRECTIVE LENSES COGNITIVELY IMPAIRED?YES READINESS TO LEARN?YES LEARNING PREFERENCES?NO LEARNING CAPABILITIES PRESENT?YES EMOTIONAL BARRIERS?NO SPECIAL DEVICES?NO FUR CLIPPER NEEDED?NO DIET: REGULAR. - WAS THE PROVIDER NOTIFIED OF ANY PERTINENT INFO?YES HAS THE PATIENT BEEN EDUCATED REGARDING HIS/HER PLAN OF CARE?YES HAS THE PATIENT BEEN EDUCATED REGARDING PAIN, THE RISK FOR PAIN, THE IMPORTANCE OF EFFECTIVE PAIN MANAGEMENT, AND THE PAIN ASSESSMENT PROCESS?YES ADVANCE DIRECTIVE ADVANCE DIRECTIVE DISCUSSED WITH PATIENT:YES HCP INFORMATION GIVEN TO PATIENT. REVIEWED WITH PATIENT 08/08/18 1002 JSREVIEWED WITH PATIENT 09/30/19 1002 JS. HOSPITALIZATION/MAJOR DIAGNOSTIC PROCEDURE DEHYDRATION, INNER EAR INFECTION 02/2018 PANCREATITIS 05/30-06/04 CONSTIPATION 05/2018 HAD COVID IN MARCH 2021 REVIEW OF SYSTEMS CONSTITUTIONAL: ANY RECENT FEVER NO . CHILLS NO . WEIGHT CHANGE OF UNKNOWN REASONS NO . GASTROENTEROLOGY: NEW UNEXPLAINABLE CHANGES IN BOWEL CONTROL NO . CONSTIPATION NO . GENITOURINARY: ANY NEW CHANGE IN BLADDER CONTROL? NO . NEUROLOGY: NEW ONSET DIZZINESS OR NEUROLOGICAL CHANGES NOT MENTIONED NO . NEW NUMBNESS OR PAIN PATTERNS NOT MENTIONED AND PERTINENT TO TODAY'S VISIT NO . CARDIOLOGY: NEW CHEST PRESSURE NO . PATIENT DENIES NO . RESPIRATORY: UNEXPLAINABLE COUGH NO . NEW SHORTNESS OF BREATH NO . VITAL SIGNS WT 148 LBS, WT-KG 67.13 KG, HT 63 IN, BMI 26.21 INDEX, BP 146/88 MM HG, HR 69 /MIN, RR 18 /MIN, TEMP 98.9 F, OXYGEN SAT % 93%, SAFE IN ENV? (Y/N) YEST.NICOL MORRIS. EXAMINATION GENERAL EXAMINATION: GENERALAWAKE,ALERT ,PLEASANT . PSYCHAFFECT NORMAL . LUNGS:LUNG RAUSCH ARE CLEAR TO AUSCULTATION BILATERALLY. GOOD MOVEMENT OF AIR . HEART:S1, S2 IN A REGULAR RATE AND RHYTHM. NO SIGNIFICANT MURMURS, RUBS OR GALLOPS NOTED . 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 BRINGS IN MEDICATIONS WHICH IS APPROPRIATE FOR WHAT WAS DISPENSED. RECENT URINE TOXICOLOGY REVIEWED. NO UNAUTHORIZED MEDICATIONS. NO ILLICIT SUBSTANCES AND PRESCRIBED MEDICATIONS WERE PRESENT. , RISKS OF NARCOTIC/OPIOD MEDICATIONS INCLUDES BUT IS NOT LIMITED TO RISK OF DEPENDANCE/DEVELOPMENT OF ADDICTION, MOOD DISTURBANCE AND DEPRESSION, OSTEOPOROSIS, HORMONAL AND LABIDAL CHANGES, RESPIRATORY DEPRESSION AND . PATIENT IS ADVISED NOT TO DRIVE OR DRINK ALCOHOL WHILE ON THESE MEDICATIONS. VISIT CODES 83643 OFFICE VISIT, EST PT., LEVEL 3. PROCEDURE CODES FA211 ESTABILISHED PATIENT [facility] CHARGE DISPOSITION & COMMUNICATION FOLLOW UP 3 MONTHS (REASON: MED MGMNT-REVIEW TOX) ELECTRONICALLY SIGNED BY LEON GAXIOLA ON 06/03/2021 AT 01:36 PM EDT DISCLAIMER : THIS IS A VISIT SUMMARY EXTRACTED FROM THE [employer] CHART. IT IS NOT A COPY OF THE [employer] PROGRESS NOTE. RO
== END ==
LOC: M PAIN 10:00
PROVIDERS: ATTEND Nurse Practitioner Family
DX: M79.18 Myalgia, other site (principal); G90.512 Complex regional pain syndrome I of left upper limb; E11.9 Type 2 diabetes mellitus without complications; J44.9 Chronic obstructive pulmonary disease, unspecified; Z87.891 Personal history of nicotine dependence; Z88.5 Allergy status to narcotic agent; Z88.8 Allergy status to other drugs, medicaments and biological substances; Z79.84 Long term (current) use of oral hypoglycemic drugs; Z79.899 Other long term (current) drug therapy

== ENCOUNTER → 2021-11-26 | Outpatient (CLI) | payer MEDICARE, BC | LOC: M PAIN 13:30 | PROVIDERS: ATTEND Anesthesiology | DX: M51.16 Intervertebral disc disorders with radiculopathy, lumbar region (principal); G89.29 Other chronic pain; E11.9 Type 2 diabetes mellitus without complications; J44.9 Chronic obstructive pulmonary disease, unspecified; Z87.891 Personal history of nicotine dependence; Z88.5 Allergy status to narcotic agent; Z88.8 Allergy status to other drugs, medicaments and biological substances; Z79.84 Long term (current) use of oral hypoglycemic drugs; Z79.899 Other long term (current) drug therapy ==

== ENCOUNTER → 2022-02-11 | Outpatient (CLI) | payer MEDICARE, BC | LOC: M PAIN 11:00 | PROVIDERS: ATTEND Anesthesiology | DX: M53.3 Sacrococcygeal disorders, not elsewhere classified (principal); G89.29 Other chronic pain; E11.9 Type 2 diabetes mellitus without complications; J44.9 Chronic obstructive pulmonary disease, unspecified; Z87.891 Personal history of nicotine dependence; Z88.5 Allergy status to narcotic agent; Z88.8 Allergy status to other drugs, medicaments and biological substances; Z79.84 Long term (current) use of oral hypoglycemic drugs; Z79.899 Other long term (current) drug therapy ==

== ENCOUNTER → 2022-05-23 | Outpatient (CLI) | payer MEDICARE, BC | LOC: M PAIN 11:45 | PROVIDERS: ATTEND Nurse Practitioner Family | DX: M46.1 Sacroiliitis, not elsewhere classified (principal); G89.29 Other chronic pain; E11.9 Type 2 diabetes mellitus without complications; J44.9 Chronic obstructive pulmonary disease, unspecified; F17.200 Nicotine dependence, unspecified, uncomplicated; Z88.5 Allergy status to narcotic agent; Z88.8 Allergy status to other drugs, medicaments and biological substances; Z79.899 Other long term (current) drug therapy ==

== ENCOUNTER → 2022-06-08 | Outpatient (CLI) | payer MEDICARE, BC | LOC: M PAIN 14:15 | PROVIDERS: ATTEND Anesthesiology | DX: M46.1 Sacroiliitis, not elsewhere classified (principal); M54.50 Low back pain, unspecified; G89.29 Other chronic pain; E11.9 Type 2 diabetes mellitus without complications; J44.9 Chronic obstructive pulmonary disease, unspecified; F17.200 Nicotine dependence, unspecified, uncomplicated; Z88.5 Allergy status to narcotic agent; Z88.8 Allergy status to other drugs, medicaments and biological substances; Z79.899 Other long term (current) drug therapy ==

== ENCOUNTER → 2022-06-19 | Outpatient (CLI) | payer MEDICARE, BC | LOC: M LABSMTC 10:45 | PROVIDERS: ATTEND Anesthesiology | DX: Z01.818 Encounter for other preprocedural examination (principal); Z11.52 Encounter for screening for COVID-19 ==

== ENCOUNTER → 2022-06-21 | Outpatient (CLI) | payer MEDICARE, BC ==
[~2022-06-21] MED LIST changes: +BUPIVACAINE HCL 0.25% 30ML VIAL As Ordered ONE; +ISOVUE-M 300 61% 15ML VIAL As Ordered ONE; +LIDOCAINE 1% SDV 30ML VIAL As Ordered ONE; +TRIAMCINOLONE ACETONIDE SUSP 40 MG/ML VIAL (J3301) As Ordered ONE; +diazePAM 5MG TABLET As Ordered ONE
== END ==
LOC: M PAIN 13:20
PROVIDERS: ATTEND Anesthesiology
DX: M46.1 Sacroiliitis, not elsewhere classified (principal); B36.9 Superficial mycosis, unspecified; E11.9 Type 2 diabetes mellitus without complications; E78.00 Pure hypercholesterolemia, unspecified; I10 Essential (primary) hypertension; J44.9 Chronic obstructive pulmonary disease, unspecified; Z86.16 Personal history of COVID-19; Z90.49 Acquired absence of other specified parts of digestive tract; F17.200 Nicotine dependence, unspecified, uncomplicated; Z79.891 Long term (current) use of opiate analgesic; Z79.84 Long term (current) use of oral hypoglycemic drugs; Z88.5 Allergy status to narcotic agent; Z88.8 Allergy status to other drugs, medicaments and biological substances
CPT/HCPCS: G0260; J3301; Q9967

== ENCOUNTER → 2022-07-25 | Outpatient (CLI) | payer MEDICARE, BC ==
[~2022-07-25] MED LIST changes: -BUPIVACAINE HCL 0.25% 30ML VIAL As Ordered ONE; -ISOVUE-M 300 61% 15ML VIAL As Ordered ONE; -LIDOCAINE 1% SDV 30ML VIAL As Ordered ONE; -TRIAMCINOLONE ACETONIDE SUSP 40 MG/ML VIAL (J3301) As Ordered ONE; -diazePAM 5MG TABLET As Ordered ONE
== END ==
LOC: M PAIN 10:30
PROVIDERS: ATTEND Nurse Practitioner Family
DX: M79.10 Myalgia, unspecified site (principal); G89.29 Other chronic pain; E11.9 Type 2 diabetes mellitus without complications; I10 Essential (primary) hypertension; J44.9 Chronic obstructive pulmonary disease, unspecified; F17.200 Nicotine dependence, unspecified, uncomplicated; Z88.5 Allergy status to narcotic agent; Z88.8 Allergy status to other drugs, medicaments and biological substances; Z79.4 Long term (current) use of insulin; Z79.82 Long term (current) use of aspirin; Z79.899 Other long term (current) drug therapy

== ENCOUNTER → 2022-09-30 | Outpatient (CLI) | payer MEDICARE, BC ==
[~2022-09-30] MED LIST changes: -CILO100T PO; +CILO100T3 PO; +E-Z-GAS II EFFERVESCENT PACKET (SODIUM BICARB./CITRIC ACID/SIMETHICONE) As Ordered ONE; +E-Z-HD 98% w/w 340GM SUSP BTL As Ordered ONE; +E-Z-PAQUE 96% w/w SUSP 176GM BTL As Ordered ONE
== END ==
LOC: M RAD 08:09
PROVIDERS: ATTEND Internal Medicine Cardiovascular Disease
DX: K27.9 Peptic ulcer, site unspecified, unspecified as acute or chronic, without hemorrhage or perforation (principal)

== ENCOUNTER → 2022-11-03 | Outpatient (CLI) | payer MEDICARE, BC ==
[~2022-11-03] MED LIST changes: -E-Z-GAS II EFFERVESCENT PACKET (SODIUM BICARB./CITRIC ACID/SIMETHICONE) As Ordered ONE; -E-Z-HD 98% w/w 340GM SUSP BTL As Ordered ONE; -E-Z-PAQUE 96% w/w SUSP 176GM BTL As Ordered ONE
== END ==
LOC: M LABSMTC 10:01
PROVIDERS: ATTEND Anesthesiology
DX: Z01.812 Encounter for preprocedural laboratory examination (principal); Z20.822 Contact with and (suspected) exposure to COVID-19

== ENCOUNTER → 2022-11-08 | Outpatient (CLI) | payer MEDICARE, BC ==
[~2022-11-08] MED LIST changes: +BUPIVACAINE HCL 0.25% 10ML VIAL As Ordered ONE; +BUPIVACAINE HCL 0.25% 30ML VIAL As Ordered ONE; +TRIAMCINOLONE ACETONIDE SUSP 40MG/ML 1ML VIAL As Ordered ONE; +diazePAM 5MG TABLET As Ordered ONE
== END ==
LOC: M PAIN 08:15
PROVIDERS: ATTEND Anesthesiology
DX: M79.18 Myalgia, other site (principal); G89.29 Other chronic pain; E11.9 Type 2 diabetes mellitus without complications; I10 Essential (primary) hypertension; J44.9 Chronic obstructive pulmonary disease, unspecified; F17.200 Nicotine dependence, unspecified, uncomplicated; Z88.5 Allergy status to narcotic agent; Z88.8 Allergy status to other drugs, medicaments and biological substances; Z79.82 Long term (current) use of aspirin; Z79.84 Long term (current) use of oral hypoglycemic drugs; Z79.899 Other long term (current) drug therapy

== ENCOUNTER → 2022-11-25 | Outpatient (CLI) | payer MEDICARE, BC ==
[~2022-11-25] MED LIST changes: -BUPIVACAINE HCL 0.25% 10ML VIAL As Ordered ONE; -BUPIVACAINE HCL 0.25% 30ML VIAL As Ordered ONE; -TRIAMCINOLONE ACETONIDE SUSP 40MG/ML 1ML VIAL As Ordered ONE; -diazePAM 5MG TABLET As Ordered ONE
== END ==
LOC: M PAIN 11:30
PROVIDERS: ATTEND Nurse Practitioner Family
DX: M79.10 Myalgia, unspecified site (principal); G89.29 Other chronic pain; E11.9 Type 2 diabetes mellitus without complications; I10 Essential (primary) hypertension; J44.9 Chronic obstructive pulmonary disease, unspecified; F17.200 Nicotine dependence, unspecified, uncomplicated; Z88.5 Allergy status to narcotic agent; Z88.8 Allergy status to other drugs, medicaments and biological substances; Z79.82 Long term (current) use of aspirin; Z79.84 Long term (current) use of oral hypoglycemic drugs; Z79.899 Other long term (current) drug therapy

== ENCOUNTER → 2023-02-06 | Outpatient (CLI) | payer MEDICARE, BC | LOC: M PAIN 09:15 | PROVIDERS: ATTEND Nurse Practitioner Family | DX: M79.10 Myalgia, unspecified site (principal); G89.29 Other chronic pain; E11.9 Type 2 diabetes mellitus without complications; I10 Essential (primary) hypertension; F17.200 Nicotine dependence, unspecified, uncomplicated; Z88.5 Allergy status to narcotic agent; Z88.8 Allergy status to other drugs, medicaments and biological substances; Z79.82 Long term (current) use of aspirin; Z79.84 Long term (current) use of oral hypoglycemic drugs; Z79.899 Other long term (current) drug therapy ==

== ENCOUNTER → 2023-06-09 | Outpatient (CLI) | payer MEDICARE, BC | LOC: M PAIN 10:45 | PROVIDERS: ATTEND Nurse Practitioner Family | DX: M46.1 Sacroiliitis, not elsewhere classified (principal); M79.10 Myalgia, unspecified site; G89.29 Other chronic pain; E11.9 Type 2 diabetes mellitus without complications; I10 Essential (primary) hypertension; J44.9 Chronic obstructive pulmonary disease, unspecified; F17.200 Nicotine dependence, unspecified, uncomplicated; Z88.5 Allergy status to narcotic agent; Z88.8 Allergy status to other drugs, medicaments and biological substances; Z79.84 Long term (current) use of oral hypoglycemic drugs; Z79.899 Other long term (current) drug therapy ==